=== PATIENT | male | born 1950 | race Caucasian/White ===

== ENCOUNTER 2019-05-25 11:16 | Outpatient (CLI) | payer MEDICARE, SELFPAY ==
[2019-05-25 12:15] LABS: Basophils # 0.1 10^3/uL (0.0-0.1); Basophils % 0.7 %; Eosinophils # 0.2 10^3/uL (0.0-0.8); Eosinophils % 3.2 %; Hematocrit 45.3 % (42.0-52.0); Hemoglobin 14.6 g/dL (11.7-16.6); Lymphocytes # 1.8 10^3/uL (0.8-4.8); Lymphocytes % 23.9 %; Mean Corpuscular HGB Conc 32.2 g/dL (30.0-36.0); Mean Corpuscular Hemoglobin 28.3 pg (28.0-34.0); Mean Corpuscular Volume 87.8 fL (80-94); Mean Platelet Volume 10.6 fL (7.4-10.4); Monocytes # 0.6 10^3/uL (0.2-0.9); Monocytes % 7.4 %; Neutrophils # 4.9 10^3/uL (1.8-7.7); Neutrophils % 64.5 %; Nucleated Red Blood Cells % 0 %; Platelet Count 153 10^3/cmm (130-400); Red Blood Count 5.16 10^6/uL (4.1-5.3); Red Cell Distribution Width 13.1 % (12.1-15.1); White Blood Count 7.5 10^3/uL (4.0-10.0)
[2019-05-25 12:39] LABS: Carcinoembryonic Antigen 3.5 ng/mL (0.0-4.7)
[2019-05-25 12:50] LABS: Alanine Aminotransferase 35 U/L (0-41); Albumin Level 4.6 g/dL (3.5-5.2); Alkaline Phosphatase 83 IU/L (40-130); Anion Gap 17.2 (5-19); Aspartate Amino Transferase 31 U/L (0-40); Blood Urea Nitrogen 19 mg/dL (8-23); Calcium 9.6 mg/Dl (8.8-10.2); Carbon Dioxide 20 mmol/L (22-29); Chloride 104 mmol/L (98-107); Globulin 2.3 g/dL (1.3-4.6); Glucose 249 mg/dL (74-106); Potassium 4.2 mmol/L (3.5-5.1); Sodium 137 mmol/L (136-145); Total Bilirubin 0.6 mg/dL (0.15-1.2); Total Protein 6.9 g/dL (6.6-8.7)
--- NOTE | 2019-05-29 16:13 | ONC FU_ITS ---
Dr. Sood Patient Follow-Up Note Patient: Percy Coronado Unit #: [id number]: [id number] Dicatated By: Alex Sood M.D.Date of Visit:May 25, 2019 Onc Med Follow-up/Prog Note Chief Complaint: Colon cancer/deep vein thrombosis. History of Present Illness: This is a 68 year-old man with stage IIIB colon cancer and deep vein thrombosis of the right leg. He had been admitted to the hospital in May 2010 with bowel obstruction at the level of the distal sigmoid colon. He underwent exploratory laparotomy with sigmoid colon resection on 06/05/2010. Pathology showed well to moderately differentiated infiltrating adenocarcinoma. The tumor measured 3.5 x 6.2 cm. It was a T3 lesion with invasion through the muscularis propria greater than 5 mm beyond the border. There was evidence of lymphovascular space invasion, but there was no involvement in 6 mesenteric lymph nodes. Due to the relatively small number of lymph nodes in the surgical specimen and the fact that he had somewhat of a locally advanced primary tumor, I had recommended adjuvant chemotherapy with Xeloda. However, he developed significant side effects during his first cycle. At that point he opted to stop treatment. He failed to return for followup, and he also failed to follow through with recommendations for surveillance colonoscopy. He was admitted to the hospital again in October 2014 with abdominal pain and vomiting. He had not been having bowel movements for several days. CT abdomen/pelvis showed severe distal colonic obstruction due to high-grade stricture in the distal descending colon. There were enlarged lymph nodes in the adjacent area. The obstruction did resolve with conservative management. He was then seen by Dr. Abbott as an outpatient. He underwent colonoscopy on 11/02/2014. He was found to have a partially obstructing malignant appearing mass in the proximal to mid sigmoid colon. The distal edge was noted at 30 cm, with the previous anastomosis identified at 15 cm. Biopsy was consistent with moderately differentiated invasive adenocarcinoma. On 11/20/2014 he underwent exploratory laparotomy with partial sigmoid colectomy. The tumor was located in the proximal sigmoid colon. Pathology showed grade 1 infiltrating adenocarcinoma which measured 4.2 x 3.0 cm. There was invasion through the muscularis propria into the perirectal adipose tissue and there was evidence of lymphovascular space invasion. There was metastatic tumor identified in 2 of 4 perirectal lymph nodes. I had seen him recently for a post hospital followup visit on 12/06/14. We had discussed the possibility of adjuvant chemotherapy. He had subsequently developed pain and swelling in the right leg, and a venous Doppler study showed pretty extensive deep vein thrombosis. He was given anticoagulation with rivaroxaban. He had subsequently agreed to proceed with adjuvant chemotherapy. He started his first cycle of treatment with modified FOLFOX on 01/04/2015. It was given without the 5-FU bolus. He tolerated the chemotherapy well until the seventh cycle, at which point his treatment was delayed because of a low platelet. With that cycle he did receive a 25% reduction in the 5-FU dosage. He then developed significant neuropathy following his 8th cycle of treatment, enough that I did opt to with hold the oxaliplatin beginning with the 9th cycle. He completed his 12th and final cycle of chemotherapy on 06/12/2015. He had subsequently stopped anticoagulation, as he had completed 6 months of treatment with rivaroxaban, and it appeared that his episode of thrombosis had been provoked. He then presented to the emergency room on 07/18/2015 with recurrent swelling of the right leg. A repeat venous Doppler showed evidence of acute occlusive deep vein thrombosis involving the right superficial femoral vein. He restarted anticoagulation with apixaban 10 mg twice a day, and he then transitioned to 5 mg twice a day. He has just remained on observation for the colon cancer. His other medical illnesses include hypertension, hyperlipidemia, and type II diabetes. He also has a history of depression. He has only a minimal smoking history, limited to smoking for a short time as a teenager. INTERIM HISTORY: Surveillance CT scans of the chest, abdomen, pelvis on 10/30/2016 showed nonspecific slight central mesenteric reticulation most likely representing viral mesenteritis. Also noted were tiny noncalcified pulmonary nodules in left upper lobe. There was no obvious metastatic disease noted. On 01/29/2017 he presented to the emergency room with vomiting and diarrhea. His CT abdomen/pelvis showed no acute findings and no evidence of metastatic disease. His surveillance CT scans of the chest, abdomen, and pelvis on 10/16/2017 showed slight increase in left upper lobe paraseptal interstitial thickening, probably on the basis of pneumonia or pneumonitis. There was evidence of bilateral lower lobe interstitial fibrosis and bronchiectasis, but there are no definite findings of disease progression in the chest and there was no evidence of metastatic involvement in the abdomen/pelvis. He continued on observation/expectant management. Surveillance CT scans on 04/17/2018 showed no evidence of metastatic disease in the chest, abdomen, or pelvis. He is seen for a follow-up visit. He has been feeling fine. He has good energy and activity tolerance. ECOG score 0. He has good appetite. He has no fever or night sweats. He does complain of sinus congestion and drainage. He says it is about to drive him nuts, but he has tried everything. He has associated cough. He does not complain of shortness of breath or chest pain. He has no GI or complaints. He has pain in his right knee, and he has numbness in his right foot. Medications: Cholecalciferol 1 (06381 Units) Tablet Oral q 1 week, Cozaar 1 (100 mg) Tablet Oral daily, Crestor 1 (40 mg) Tablet Oral daily, Eliquis 1 (5 mg) Tablet Oral b.i.d., Flonase Suspension Nasal, Glimepiride 1 (2 mg) Tablet Oral daily, Lisinopril 1 (40 mg) Tablet Oral daily, NovoLOG Subcutaneous Take as Directed, Pepcid 1 (20 mg) Tablet Oral b.i.d., Prochlorperazine Maleate 1 (10 mg) Tablet Oral q 6 hours, Singulair 1 (10 mg) Tablet Oral daily, Tresiba FlexTouch Subcutaneous daily, Victoza 1 Subcutaneous daily, Vistaril 1 (25 mg) Capsule Oral daily, Zoloft 1 (100 mg) Tablet Oral daily Allergies: novacaine Review of Systems: Constitutional - His energy is good and he has normal activity. Appetite is so-so, but his weight is stable. No fever, chills, hot flashes, or night sweats. ECOG score is 0, ENMT - He has sinus congestion/drainage. He says he has tried everything for it. No mouth sores. No sore throat or difficulty swallowing, Hematologic/Lymphatic - No abnormal bruising or bleeding, Respiratory - No shortness of breath. He has cough associated with the sinus drainage. No pleuritic pain or hemoptysis, Cardiovascular - No angina pain. No palpitations, Gastrointestinal - No nausea or vomiting. No heartburn or acid reflux. No diarrhea or constipation. No blood in the stool or black stools, Genitourinary (M) - No dysuria or hematuria. No urinary frequency. No urgency or incontinence, Musculoskeletal - He has pain in his right knee. He has no other joint or bone pain, Neurologic - No headache or dizziness. He has numbness/tingling in his right foot, Psychiatric - He has some depression. No insomnia. Vital Signs: Performed on May 25, 2019 13:59 Height - 70.00 in Weight - 221.4 lbs (LOW) BSA - 2.18 sq.m BMI - 31.77 (HIGH) Temperature - 97.8 F (LOW) Pulse - 99 /min Respiration - 20 /min BP - 119/79 mm(hg) O2 Sat - 96 % Pain - 0 Physical Examination: Constitutional - He looks pretty good generally, Eyes - Sclerae nonicteric. Conjunctivae clear, ENMT - There are no lesions noted in the oral cavity, Hematologic/Lymphatic - No cervical, clavicular, or axillary adenopathy, Respiratory - Lungs are clear with some decrease in air movement bilaterally, Cardiovascular - Heart rhythm is regular. There is no murmur, gallop or rub noted, Abdomen - Soft. Liver and spleen are not enlarged. There is no abdominal mass or ascites noted and there is no inguinal adenopathy, Extremities - No edema, Neurologic - No focal neurologic deficits noted. Lab/Imaging: Test performed on May 25, 2019 11:53 Glucose 249 mg/dL BUN 19 mg/dL Creatinine 1.3 mg/dL Cr Clearance (Est) 74.0300 mL/min Sodium 137 mmol/L Potassium 4.2 mmol/L Chloride 104 mmol/L CO2 20 mmol/L Calcium 9.6 mg/dL Protein, Total 6.9 g/dL Albumin 4.6 g/dL Bilirubin, Total 0.6 mg/dL Alkaline Phosphatase 83 IU/L AST (SGOT) 31 IU/L ALT (SGPT) 35 IU/L WBC 7.5 10^9/L RBC 5.16 10^12/L HGB 14.6 g/dL HCT 45.3 % MCV 87.8 fl MCH 28.3 pg MCHC 32.2 g/dL RDW 13.1 % Platelet Count 153 10^9/L MPV 10.6 fL Neutrophils (Gran) 4.9 10^9/L Lymphocytes 1.8 10^9/L Monocytes 0.6 10^9/L Eosinophils 0.2 10^9/L Basophils 0.1 10^9/L Manual Lymphocytes 23.9 % Manual Monocytes 7.4 % Manual Eosinophils 3.2 % Manual Basophils 0.7 % NRBCs 0.0 /100 WBC CEA 3.5 ng/mL Impression: 1. Patient with grade 1 invasive adenocarcinoma of the proximal sigmoid colon, stage IIIB (pT3, pN1b, M0). He underwent partial sigmoid colon resection on 11/20/14. 2. He had concerns about adjuvant chemotherapy due to the significant toxicity he had experienced previously with Xeloda. Ultimately he did agree, and in December 2014 he initiated a course of treatment with modified FOLFOX. It was administered without a 5-FU bolus. The 5-FU dosage was reduced by 25 % beginning with cycle 7 due to thrombocytopenia. He then developed significant neuropathy following the eighth cycle, and the oxaliplatin was omitted beginning with cycle 9. As of 06/12/2015 he completed 12 cycles of treatment. 3. His clinical course was complicated by deep vein thrombosis of the right leg, diagnosed in December 2014, prior to starting chemotherapy. He was given anticoagulation with rivaroxaban, which he stopped in June 2015 after completing a 6-month course of treatment. Within a month he was confirmed by Doppler to have recurrent deep vein thrombosis in the right leg, and he has since then remain on anticoagulation with apixaban. 4. He has a prior history of sigmoid colon resection in May 2010 for moderately differentiated adenocarcinoma, stage IIA. He received abbreviated adjuvant chemotherapy with Xeloda, limited to one cycle. It was stopped due to toxicities. His other medical illnesses include: 5. Hypertension. 6. Hyperlipidemia. 7. Type II diabetes. 8. He has a history of depression. He has remained on observation for the colon cancer following completion of the chemotherapy. During follow-up there was some decline in his renal function, but that subsequently stabilized. There has been some mild fluctuation in his CEA levels, but the significance remains uncertain. Overall, his clinical status remains stable with no evidence of recurrence of the colon cancer. He has declined any further surveillance colonoscopy. Plan: He remains on observation/expectant management for the colon cancer. He will be scheduled for surveillance CT scans. I will see him again in one year. Signed By: Alex Sood M.D. <<Signature on File>>
== END 2019-05-25 11:17 | disposition home or self-care (01) ==
LOC: ONCMED 11:16
PROVIDERS: Family Provider Nurse Practitioner; PCP Nurse Practitioner; Visit Provider Internal Medicine Medical Oncology
DX: Z08 Encounter for follow-up examination after completed treatment for malignant neoplasm (principal); Z85.038 Personal history of other malignant neoplasm of large intestine; I10 Essential (primary) hypertension; E78.5 Hyperlipidemia, unspecified; E11.9 Type 2 diabetes mellitus without complications; F32.9 Major depressive disorder, single episode, unspecified; Z79.01 Long term (current) use of anticoagulants; Z79.4 Long term (current) use of insulin; Z90.49 Acquired absence of other specified parts of digestive tract; Z92.21 Personal history of antineoplastic chemotherapy
CPT/HCPCS: 36591; 80053; 82378; 85025; G0463

== ENCOUNTER 2019-06-10 09:39 | Outpatient (CLI) | payer MEDICARE, SELFPAY ==
--- NOTE | 2019-06-10 09:47 | CT_ITS ---
WS: [id number] CT CHEST, ABDOMEN, AND PELVIS TECHNIQUE: Contrast-enhanced CT of the chest, abdomen, and pelvis with coronal and sagittal reformatt ed images. CLINICAL INFORMATION: COLON CANCER COMPARISON: CT April 17, 2018. Multiple prior CTs October 16, 2017, January 29, October 30, 2016 DLP: 2031.[address] scans at [facility] use at least one of these dose optimization techniques: automat ed exposure control; mA and/or kV adjustment per patient size (includes targeted exams where dose is matched to clinical indication); or iterative reconstruction. CT CHEST: Proximal main pulmonary arteries are normal. Normal caliber thoracic aorta. Vascular calcification in cluding coronary. No mediastinal or hilar lymphadenopathy. Small esophageal hiatal hernia. No axillary lymphadenopathy. Chronic emphysematous changes with interstitial thickening in both lungs . Stable interstitial thickening in the lung bases. No new or suspicious pulmonary parenchymal opacit ies to indicate metastatic disease. No new pulmonary infiltrates. Calcified subcarinal lymph nodes. CT ABDOMEN AND PELVIS: Mild diffuse fatty infiltration liver. Portal vein and splenic vein are patent. Normal gallbladder. N ormal spleen. Fatty atrophy of the pancreas. Esophageal hiatal hernia. Normal caliber abdominal aorta . Aortic calcification. Adrenal glands are normal. Bilateral renal cortical atrophy. Small left renal cyst. No periaortic lymphadenopathy. Prostate calcification. Slightly enlarged prostate measuring 3.9 x 5.1 cm. Recommend correlation PSA. Markedly urine distended bladder consistent with bladder outlet obstruction. Prior partial sigmoid r esection with end-to-end anastomosis. No evidence of recurrent sigmoid mass. No evidence of obstructi on. No pelvic lymphadenopathy. No inguinal lymphadenopathy. CT/CT chest abd pel w con* IMPRESSION: 1. No evidence of metastatic disease in the chest abdomen or pelvis. 2. No mediastinal or hilar lymphadenopathy. No adenopathy in the abdomen or pe lvis. 3. Small sliding-type esophageal hiatal hernia unchanged. 4. Urine distended bladder with slightly enlarged prostate. Recommend correlat ion PSA. Recommend correlation for bladder outlet obstruction. 5. Prior partial sigmoid resection with end to end anastomosis. No pelvic lymp hadenopathy.
[2019-06-10] MEDS: iohexol 300 mg/mL 50 mL Btl PO (10:00)
[2019-06-10] MEDS: iodixanol 320 mg/mL 100mL Btl IV (11:29)
== END 2019-06-10 09:40 | disposition home or self-care (01) ==
LOC: CT 09:39
PROVIDERS: Family Provider Nurse Practitioner; PCP Nurse Practitioner; Visit Provider Internal Medicine Medical Oncology
DX: C18.9 Malignant neoplasm of colon, unspecified (principal); K44.9 Diaphragmatic hernia without obstruction or gangrene; N40.0 Benign prostatic hyperplasia without lower urinary tract symptoms
CPT/HCPCS: 71260; 74177

== ENCOUNTER → 2019-06-24 11:55 | Outpatient (BNVA) | payer MEDICARE, SELFPAY | PROVIDERS: Family Provider Nurse Practitioner; PCP Nurse Practitioner; Visit Provider Nurse Practitioner | DX: E11.65 Type 2 diabetes mellitus with hyperglycemia (principal); H61.22 Impacted cerumen, left ear; K21.9 Gastro-esophageal reflux disease without esophagitis; I10 Essential (primary) hypertension; F41.9 Anxiety disorder, unspecified; E11.40 Type 2 diabetes mellitus with diabetic neuropathy, unspecified; Z79.4 Long term (current) use of insulin; Z86.718 Personal history of other venous thrombosis and embolism | CPT/HCPCS: 80053; 81003; 83036 ==

== ENCOUNTER 2019-06-30 12:03 | Outpatient (CLI) | payer MEDICARE, SELFPAY | END 2019-06-30 12:04 | disposition home or self-care (01) | LOC: ONCMED 12:05 | PROVIDERS: Family Provider Nurse Practitioner; PCP Nurse Practitioner; Visit Provider Internal Medicine Medical Oncology | DX: Z45.2 Encounter for adjustment and management of vascular access device (principal) | CPT/HCPCS: 96523 ==

== ENCOUNTER 2019-07-29 14:31 | Outpatient (CLI) | payer MEDICARE, SELFPAY | END 2019-07-29 14:32 | disposition home or self-care (01) | LOC: ONCMED 14:31 | PROVIDERS: Family Provider Nurse Practitioner; PCP Nurse Practitioner; Visit Provider Internal Medicine Medical Oncology | DX: Z45.2 Encounter for adjustment and management of vascular access device (principal) | CPT/HCPCS: 96523 ==

== ENCOUNTER 2019-09-03 10:06 | Outpatient (CLI) | payer MEDICARE, SELFPAY | END 2019-09-03 10:07 | disposition home or self-care (01) | LOC: ONCMED 10:07 | PROVIDERS: Family Provider Nurse Practitioner; PCP Nurse Practitioner; Visit Provider Internal Medicine Medical Oncology | DX: Z45.2 Encounter for adjustment and management of vascular access device (principal); C18.7 Malignant neoplasm of sigmoid colon; Z85.038 Personal history of other malignant neoplasm of large intestine | CPT/HCPCS: 96523 ==

== ENCOUNTER → 2019-11-24 09:39 | Outpatient (BNVA) | payer MEDICARE, SELFPAY | PROVIDERS: Family Provider Nurse Practitioner; PCP Nurse Practitioner Family; Visit Provider Nurse Practitioner Family | DX: E11.65 Type 2 diabetes mellitus with hyperglycemia (principal); Z86.718 Personal history of other venous thrombosis and embolism; K21.9 Gastro-esophageal reflux disease without esophagitis; F41.9 Anxiety disorder, unspecified; E11.40 Type 2 diabetes mellitus with diabetic neuropathy, unspecified; E55.9 Vitamin D deficiency, unspecified; Z79.4 Long term (current) use of insulin; H91.93 Unspecified hearing loss, bilateral; F32.9 Major depressive disorder, single episode, unspecified; E78.2 Mixed hyperlipidemia; N18.9 Chronic kidney disease, unspecified; I12.9 Hypertensive chronic kidney disease with stage 1 through stage 4 chronic kidney disease, or unspecified chronic kidney disease; Z68.28 Body mass index [BMI] 28.0-28.9, adult | CPT/HCPCS: 80053; 80061; 82306; 83036; 85025 ==

== ENCOUNTER → 2020-02-22 08:15 | Outpatient (BNVA) | payer MEDICARE, SELFPAY | PROVIDERS: Family Provider Nurse Practitioner; PCP Nurse Practitioner Family; Visit Provider Nurse Practitioner Family | DX: I10 Essential (primary) hypertension (principal); E11.65 Type 2 diabetes mellitus with hyperglycemia; Z79.4 Long term (current) use of insulin | CPT/HCPCS: 80053; 83036; 85025 ==

== ENCOUNTER → 2020-05-22 11:11 | Outpatient (BNVA) | payer MEDICARE, SELFPAY | PROVIDERS: Family Provider Nurse Practitioner; PCP Nurse Practitioner Family; Visit Provider Nurse Practitioner Family | DX: E11.65 Type 2 diabetes mellitus with hyperglycemia (principal); Z79.4 Long term (current) use of insulin; E55.9 Vitamin D deficiency, unspecified; N18.31 Chronic kidney disease, stage 3a; H91.93 Unspecified hearing loss, bilateral; F41.9 Anxiety disorder, unspecified; F32.9 Major depressive disorder, single episode, unspecified; E78.2 Mixed hyperlipidemia; I10 Essential (primary) hypertension | CPT/HCPCS: 80053; 80061; 82043; 82306; 82378; 83036; 85025 ==

== ENCOUNTER 2020-05-24 08:00 | Outpatient (CLI) | payer MEDICARE, SELFPAY ==
--- NOTE | 2020-06-06 07:37 | ONC FU_ITS ---
Dr. Sood Patient Follow-Up Note Patient: Percy Coronado Unit #: [id number]: [id number] Dicatated By: Alex Sood M.D.Date of Visit:May 24, 2020 Onc Med Follow-up/Prog Note Chief Complaint: Colon cancer/deep vein thrombosis. History of Present Illness: This is a 70 year-old man with stage IIIB colon cancer and deep vein thrombosis of the right leg. He had been admitted to the hospital in May 2010 with bowel obstruction at the level of the distal sigmoid colon. He underwent exploratory laparotomy with sigmoid colon resection on 06/05/2010. Pathology showed well to moderately differentiated infiltrating adenocarcinoma. The tumor measured 3.5 x 6.2 cm. It was a T3 lesion with invasion through the muscularis propria greater than 5 mm beyond the border. There was evidence of lymphovascular space invasion, but there was no involvement in 6 mesenteric lymph nodes. Due to the relatively small number of lymph nodes in the surgical specimen and the fact that he had somewhat of a locally advanced primary tumor, I had recommended adjuvant chemotherapy with Xeloda. However, he developed significant side effects during his first cycle. At that point he opted to stop treatment. He failed to return for followup, and he also failed to follow through with recommendations for surveillance colonoscopy. He was admitted to the hospital again in October 2014 with abdominal pain and vomiting. He had not been having bowel movements for several days. CT abdomen/pelvis showed severe distal colonic obstruction due to high-grade stricture in the distal descending colon. There were enlarged lymph nodes in the adjacent area. The obstruction did resolve with conservative management. He was then seen by Dr. Abbott as an outpatient. He underwent colonoscopy on 11/02/2014. He was found to have a partially obstructing malignant appearing mass in the proximal to mid sigmoid colon. The distal edge was noted at 30 cm, with the previous anastomosis identified at 15 cm. Biopsy was consistent with moderately differentiated invasive adenocarcinoma. On 11/20/2014 he underwent exploratory laparotomy with partial sigmoid colectomy. The tumor was located in the proximal sigmoid colon. Pathology showed grade 1 infiltrating adenocarcinoma which measured 4.2 x 3.0 cm. There was invasion through the muscularis propria into the perirectal adipose tissue and there was evidence of lymphovascular space invasion. There was metastatic tumor identified in 2 of 4 perirectal lymph nodes. I had seen him recently for a post hospital followup visit on 12/06/14. We had discussed the possibility of adjuvant chemotherapy. He had subsequently developed pain and swelling in the right leg, and a venous Doppler study showed pretty extensive deep vein thrombosis. He was given anticoagulation with rivaroxaban. He had subsequently agreed to proceed with adjuvant chemotherapy. He started his first cycle of treatment with modified FOLFOX on 01/04/2015. It was given without the 5-FU bolus. He tolerated the chemotherapy well until the seventh cycle, at which point his treatment was delayed because of a low platelet. With that cycle he did receive a 25% reduction in the 5-FU dosage. He then developed significant neuropathy following his 8th cycle of treatment, enough that I did opt to with hold the oxaliplatin beginning with the 9th cycle. He completed his 12th and final cycle of chemotherapy on 06/12/2015. He had subsequently stopped anticoagulation, as he had completed 6 months of treatment with rivaroxaban, and it appeared that his episode of thrombosis had been provoked. He then presented to the emergency room on 07/18/2015 with recurrent swelling of the right leg. A repeat venous Doppler showed evidence of acute occlusive deep vein thrombosis involving the right superficial femoral vein. He restarted anticoagulation with apixaban 10 mg twice a day, and he then transitioned to 5 mg twice a day. He has just remained on observation for the colon cancer. His other medical illnesses include hypertension, hyperlipidemia, and type II diabetes. He also has a history of depression. He has only a minimal smoking history, limited to smoking for a short time as a teenager. INTERIM HISTORY: Surveillance CT scans of the chest, abdomen, pelvis on 10/30/2016 showed nonspecific slight central mesenteric reticulation most likely representing viral mesenteritis. Also noted were tiny noncalcified pulmonary nodules in left upper lobe. There was no obvious metastatic disease noted. On 01/29/2017 he presented to the emergency room with vomiting and diarrhea. His CT abdomen/pelvis showed no acute findings and no evidence of metastatic disease. His surveillance CT scans of the chest, abdomen, and pelvis on 10/16/2017 showed slight increase in left upper lobe paraseptal interstitial thickening, probably on the basis of pneumonia or pneumonitis. There was evidence of bilateral lower lobe interstitial fibrosis and bronchiectasis, but there are no definite findings of disease progression in the chest and there was no evidence of metastatic involvement in the abdomen/pelvis. Surveillance CT scans on 04/17/2018 and on 06/10/2019 showed no evidence of metastatic disease in the chest, abdomen, or pelvis. He continued on observation/expectant management. He is seen for a follow-up visit. He has been feeling fine. He says that some days his energy is slow. He is able to do light work. ECOG score is 1. He has good appetite. He has no fever or night sweats. He has no shortness of breath, cough, or chest pain. He still sometimes has nausea. He has no other GI or complaints. He has pain in his right knee and he also has numbness in his right foot. He has no other joint or bone pain and he has no other focal neurologic symptoms. Medications: Cholecalciferol 1 (39195 Units) Tablet Oral q 1 week, Cozaar 1 (100 mg) Tablet Oral daily, Crestor 1 (40 mg) Tablet Oral daily, Eliquis 1 (5 mg) Tablet Oral b.i.d., Flonase Suspension Nasal, Glimepiride 1 (2 mg) Tablet Oral daily, Pepcid 1 (20 mg) Tablet Oral b.i.d., Prochlorperazine Maleate 1 (10 mg) Tablet Oral q 6 hours, Singulair 1 (10 mg) Tablet Oral daily, Tresiba FlexTouch Subcutaneous daily, Victoza 1 Subcutaneous daily, Vistaril 1 (25 mg) Capsule Oral daily, Zoloft 1 (100 mg) Tablet Oral daily Allergies: novacaine Vital Signs: Performed on May 24, 2020 12:11 Height - 70.00 in Weight - 216.4 lbs (LOW) BSA - 2.16 sq.m BMI - 31.05 (HIGH) Temperature - 97.7 F (LOW) Pulse - 98 /min Respiration - 18 /min BP - 132/76 mm(hg) O2 Sat - 96 % Pain - 0 Physical Examination: Constitutional - He looks pretty good generally, Eyes - Sclerae nonicteric. Conjunctivae clear, ENMT - No lesions noted in the oral cavity, Hematologic/Lymphatic - No cervical, clavicular, or axillary adenopathy, Respiratory - Lungs are clear with some decrease in air movement bilaterally, Cardiovascular - Heart rhythm is regular. There is no murmur, gallop or rub noted, Abdomen - Soft. Liver and spleen are not enlarged. There is no abdominal mass or ascites noted and there is no inguinal adenopathy, Extremities - No edema, Neurologic - No focal neurologic deficits noted. Lab/Imaging: CBC shows hemoglobin 16.6 g, white blood cell count 8200, and platelet count 177,000. Comprehensive metabolic profile is unremarkable. CEA is up slightly at 4.4 ng/mL. Historic Problem List: 1. Grade 1 invasive adenocarcinoma of the proximal sigmoid colon, stage IIIB (pT3, pN1b, M0). He underwent partial sigmoid colon resection on 11/20/14. 2. Between December 2014 and May 2015 he completed 12 cycles of adjuvant chemotherapy with modified FOLFOX. He did require dose reductions in both the 5-FU and oxaliplatin, and the oxaliplatin was omitted beginning with cycle 9. 3. His clinical course was complicated by deep vein thrombosis of the right leg, diagnosed in December 2014, prior to starting chemotherapy. He was given anticoagulation with rivaroxaban, which he stopped in June 2015 after completing a 6-month course of treatment. Within a month he was confirmed by Doppler to have recurrent deep vein thrombosis in the right leg, and he then restarted apixaban. 4. He has a prior history of sigmoid colon resection in May 2010 for moderately differentiated adenocarcinoma, stage IIA. He received abbreviated adjuvant chemotherapy with Xeloda, limited to one cycle. It was stopped due to toxicities. 5. Hypertension. 6. Hyperlipidemia. 7. Type II diabetes. 8. He has a history of depression. Problems Addressed with this Encounter and Plan: 1. Grade 1 invasive adenocarcinoma of the proximal sigmoid colon, stage IIIB (pT3, pN1b, M0). He underwent partial sigmoid colon resection on 11/20/14. Between December 2014 and May 2015 he completed 12 cycles of adjuvant chemotherapy with modified FOLFOX. He did require dose reductions in both the 5-FU and oxaliplatin, and the oxaliplatin was omitted beginning with cycle 9. He was then followed on observation/expectant management. During followup has been doing well clinically, thus far with no evidence of recurrence of the colon cancer. He remains on observation/expectant management. He will be scheduled for surveillance CT scans. I will see him again in one year. 2. He developed deep vein thrombosis of the right leg in December 2014, prior to starting chemotherapy. He was given anticoagulation with rivaroxaban, which he stopped in June 2015 after completing a 6-month course of treatment. Within a month he was confirmed by Doppler to have recurrent deep vein thrombosis in the right leg, and he has since then remained on anticoagulation with apixaban. Thus far he has tolerated it well and he has had no further thromboembolism. Signed By: Alex Sood M.D. <<Signature on File>>
== END 2020-05-24 08:01 | disposition home or self-care (01) ==
LOC: ONCMED 05-29 07:30
PROVIDERS: Family Provider Nurse Practitioner; PCP Nurse Practitioner Family; Visit Provider Internal Medicine Medical Oncology
DX: Z08 Encounter for follow-up examination after completed treatment for malignant neoplasm (principal); Z85.038 Personal history of other malignant neoplasm of large intestine; Z86.718 Personal history of other venous thrombosis and embolism; Z79.01 Long term (current) use of anticoagulants; Z92.21 Personal history of antineoplastic chemotherapy
CPT/HCPCS: 99214

== ENCOUNTER → 2020-06-12 11:38 | Outpatient (BNVA) | payer MEDICARE, SELFPAY | PROVIDERS: Family Provider Nurse Practitioner; PCP Nurse Practitioner; Visit Provider Nurse Practitioner | DX: E11.65 Type 2 diabetes mellitus with hyperglycemia (principal); E11.40 Type 2 diabetes mellitus with diabetic neuropathy, unspecified; K21.9 Gastro-esophageal reflux disease without esophagitis; J30.89 Other allergic rhinitis; I10 Essential (primary) hypertension; F32.9 Major depressive disorder, single episode, unspecified; F41.9 Anxiety disorder, unspecified; E55.9 Vitamin D deficiency, unspecified; Z79.4 Long term (current) use of insulin; Z86.718 Personal history of other venous thrombosis and embolism; Z79.899 Other long term (current) drug therapy | CPT/HCPCS: 80053; 80061; 81003; 82043; 83036; 84443; 87086 ==

== ENCOUNTER 2020-06-15 11:28 | Outpatient (CLI) | payer MEDICARE, SELFPAY ==
--- NOTE | 2020-06-15 11:44 | CT_ITS ---
WS: [id number] CT CHEST, ABDOMEN, AND PELVIS TECHNIQUE: Contrast-enhanced CT of the chest, abdomen, and pelvis with coronal and sagittal reformatt ed images. CLINICAL INFORMATION: COLON CANCER, MALIGNANT NEOPLASM OF SIGMOID COLON, COMPARISON: CT June 10 2019, April 17, 2018, October 2017, January 2017 DLP: 2750.[address] scans at [facility] use at least one of these dose optimization techniques: automat ed exposure control; mA and/or kV adjustment per patient size (includes targeted exams where dose is matched to clinical indication); or iterative reconstruction. CT CHEST: Chronic interstitial thickening throughout both lungs. No focal pneumonia. No acute pulmonary infiltr ates. Large esophageal hiatal hernia with air-fluid level appears progressed. Noncalcified 3 mm nodul e left upper lobe unchanged from 2018. Proximal main pulmonary arteries are normal. Normal caliber thoracic aorta. Vascular calcification in cluding coronary. Calcified subcarinal lymph nodes. CT ABDOMEN AND PELVIS: Diffuse fatty infiltration the liver. Portal vein and splenic vein are patent. Normal gallbladder. No rmal spleen. Fatty atrophy of the pancreas. Progressed large esophageal hiatal hernia with air-fluid level Normal caliber abdominal aorta. Aortic calcification. Adrenal glands are normal. Bilateral renal veronique ical atrophy. Small left renal cyst. No abdominal or pelvic lymphadenopathy. Enlarged prostate unchan ged. Markedly distended urinary bladder consistent with bladder outlet obstruction similar to previou s. Prior partial sigmoid resection with end-to-end anastomosis. No evidence of recurrent sigmoid mass. N o evidence of obstruction. CT/CT chest abd pel w con* IMPRESSION: 1. No evidence of metastatic disease in the chest abdomen or pelvis. 2. No mediastinal or hilar lymphadenopathy. 3. No adenopathy in the abdomen or pelvis. 4. Progressed enlarged sliding-type esophageal hiatal hernia with air-fluid le rukhsana. 5. Stable enlarged prostate with markedly distended urinary bladder likely due to bladder outlet obstruction. 6. Prior partial sigmoid resection with end to end anastomosis. 7. Noncalcified 3 mm nodule left upper lobe unchanged since 2018.
[2020-06-15] MEDS: iohexol 300 mg/mL 100 mL Btl IV (13:35)
[2020-06-15] MEDS: iohexol 300 mg/mL 50 mL Btl PO (13:35)
== END 2020-06-15 11:29 | disposition home or self-care (01) ==
LOC: RADWPI 11:41
PROVIDERS: PCP Nurse Practitioner; Visit Provider Internal Medicine Medical Oncology
DX: Z85.038 Personal history of other malignant neoplasm of large intestine (principal); R91.1 Solitary pulmonary nodule; N40.0 Benign prostatic hyperplasia without lower urinary tract symptoms; K44.9 Diaphragmatic hernia without obstruction or gangrene
CPT/HCPCS: 71260; 74177; Q9967

== ENCOUNTER → 2020-07-13 08:31 | Outpatient (BNVA) | payer MEDICARE, SELFPAY | PROVIDERS: PCP Nurse Practitioner; Visit Provider Nurse Practitioner | DX: M19.041 Primary osteoarthritis, right hand (principal); M19.042 Primary osteoarthritis, left hand; M17.0 Bilateral primary osteoarthritis of knee; E11.65 Type 2 diabetes mellitus with hyperglycemia; Z79.4 Long term (current) use of insulin; E11.40 Type 2 diabetes mellitus with diabetic neuropathy, unspecified | CPT/HCPCS: 73130; 73562 ==

== ENCOUNTER → 2020-09-04 09:36 | Outpatient (BNVA) | payer MEDICARE, SELFPAY | PROVIDERS: PCP Nurse Practitioner; Visit Provider Urology | DX: R33.9 Retention of urine, unspecified (principal); N18.31 Chronic kidney disease, stage 3a; N39.490 Overflow incontinence | CPT/HCPCS: 81003 ==

== ENCOUNTER → 2020-09-11 11:42 | Outpatient (BNVA) | payer MEDICARE, SELFPAY | PROVIDERS: PCP Nurse Practitioner; Visit Provider Nurse Practitioner | DX: F41.9 Anxiety disorder, unspecified (principal); F32.9 Major depressive disorder, single episode, unspecified; E11.65 Type 2 diabetes mellitus with hyperglycemia; E55.9 Vitamin D deficiency, unspecified; K21.9 Gastro-esophageal reflux disease without esophagitis; E11.40 Type 2 diabetes mellitus with diabetic neuropathy, unspecified; J30.89 Other allergic rhinitis; Z79.4 Long term (current) use of insulin; Z86.718 Personal history of other venous thrombosis and embolism | CPT/HCPCS: 80053; 82043; 83036 ==

== ENCOUNTER → 2020-10-18 15:36 | Outpatient (BNVA) | payer MEDICARE, SELFPAY | PROVIDERS: PCP Nurse Practitioner; Visit Provider Urology | DX: N18.31 Chronic kidney disease, stage 3a (principal); R33.9 Retention of urine, unspecified; N39.490 Overflow incontinence; N40.1 Benign prostatic hyperplasia with lower urinary tract symptoms | CPT/HCPCS: 81003 ==

== ENCOUNTER 2020-11-06 16:57 | Emergency (ER) | payer MEDICARE, SELFPAY ==
[2020-11-06 17:09] VITALS: BP 136/80; PULSE 87; RESP 18; TEMP 36.9; O2SAT 95; BMI 27.8
--- NOTE | 2020-11-06 18:54 | XRR_ITS ---
PROCEDURE INFORMATION: Exam: XR Chest Exam date and time: 11/06/2020 6:54 PM Age: 70 years old Clinical indication: Other: Weak; Prior surgery; Surgery date: 6+ months; Surgery type: Colon TECHNIQUE: Imaging protocol: XR of the chest. Views: 1 view. COMPARISON: CT chest abd pel w con* 06/15/2020 1:31 PM FINDINGS: Lungs: Unchanged hyperinflation/COPD with basilar fibrosis. No consolidation. Pleural spaces: Unremarkable. No pleural effusion. No pneumothorax. Heart/Mediastinum: Unchanged cardiomegaly. There is a moderate size hiatal hernia. Bones/joints: No acute abnormality. XR/XR chest 1V portable [id number] IMPRESSION: No acute findings. Unchanged exam.
--- NOTE | 2020-11-06 18:55 | ECG_ITS ---
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 Measurements Intervals [place] Rate: 92 P: 26 MO: 199 QRS: -63 QRSD: 132 T: 57 QT: 386 QTc: 480 Interpretive Statements Multifocal atrial rhythm RIGHT BUNDLE BRANCH BLOCK [120+ ms QRS DURATION, UPRIGHT V1, 40+ ms S IN I/aVL/V4/V5/V6] LEFT ANTERIOR FASCICULAR BLOCK [QRS AXIS <= -45, QR IN I, RS IN II] VOLTAGE CRITERIA FOR LVH [MEETS CRITERIA IN ONE OF: R(aVL), S(V1), R(V5), R(V5/V6)+S(V1)] ANTERIOR MYOCARDIAL INFARCTION [40+ ms Q WAVE AND/OR ST/T ABNORMALITY IN V3/V4], PROBABLY OLD Compared to ECG 01/29/2017 19:58:51 Right bundle-branch block now present Left ventricular hypertrophy now present Myocardial infarct finding still present Electronically Signed On 11-06-2020 21:21:19 CDT by Enrike Carrillo M.D. [id number]
--- NOTE | 2020-11-06 19:07 | ED_ITS ---
HPI - Male Genitourinary General: Chief complaint: Urogenital-Male Stated complaint: POSS UTI Time Seen by Provider: 11/06/20 18:51 Source: patient Mode of arrival: ambulatory History of Present Illness: HPI Narrative: 70-year-old male states that he believes he has a urinary tract infection. He states he has had discolored urine over the last 2 days and some generalized weakness. He states he had urin jeffy retention had to wear a Obrien for 2 weeks and had it removed over the weekend but is been doing self cath since then. He denies any fevers. Denies any flank pain. Denies any vomiting. Denies any worsening improving factors. Associated symptoms: Reports dysuria; Deny nausea or vomiting Review of Systems Const: Denies: fever(s), chills, body aches or change in appetite Eyes: Denies: blurry vision or eye discomfort ENMT: Denies: throat pain or dental pain Card: Denies: chest pain Resp: Denies: dyspnea GI: Denies: abdominal pain, nausea, vomiting or diarrhea : Reports: dysuria Musc: Denies: neck pain or back pain Skin/Breast: Denies: rash Neuro: Denies: headache(s) Psych: Denies: depression Ruben/Lymph: Denies: easy bruising All/Imm: Denies: urticaria PFSH ED PFSH: Medical History Anxiety and depression BPH loc w urin obs/LUTS Chronic kidney disease (CKD) stage 3 Chronic painful diabetic neuropathy Controlled diabetes mellitus with hyperglycemia, with long-term current use of insulin Environmental and seasonal allergies Gastric reflux History of deep venous thrombosis (DVT) of distal vein of left lower extremity HTN (hypertension) Incomplete bladder emptying Mixed dyslipidemia Osteoarthritis of knee, unspecified Right Overflow incontinence Urinary retention Vitamin D deficiency, unspecified Surgical History History of partial surgical removal of colon (~11/2014) For colon cancer Hx of colonoscopy 2014 Family History Mother Cancer Lung Father Nicotine addiction Other Hypertension Social History Smoking and tobacco status: never smoked Second hand smoke exposure: No Smoking risk assessment/counseling performed?: No Alcohol intake: former Desire information about alcohol rehabilitation?: No Counseling given: No Desire information about substance/drug rehabilitation?: No Counseling given: No Adopted: No Caregiver/support person: No Lives independently: Yes Household members: none Housing: House Marital status: / service: No Current occupational status: retired History of recent travel: No Current gender identity: Male Physical Exam Const: COMMON NORMALS: no acute distress, patient oriented x3 and healthy appearing HENMT: COMMON NORMALS: normocephalic and atraumatic HEAD & SCALP: normocephalic and atraumatic Eye: COMMON NORMALS: Equal, round and reactive pupils present and EOMs intact bilaterally PUPIL: Yes Equal, round and reactive pupils present Neck/C-Spine: COMMON NORMALS: full ROM and supple Chest: COMMONS NORMALS: normal inspection of the chest and normal palpation of entire chest wall Resp: COMMON NORMALS: normal respiratory effort, No retractions, No use of accessory muscles and clear to auscultation bilaterally AUSCULTATION: clear to auscultation bilaterally Cardio: COMMON NORMALS: regular rate, regular rhythm and No murmurs present (Cardio) RATE: regular rate RHYTHM: regular rhythm GI: COMMON NORMALS: Normal to inspection, nondistended, normoactive bowel sounds present, Soft to palpation, non-tender and no masses PALPATION: Yes Soft to palpation Extremity: COMMON NORMALS: normal to inspection and full ROM Neuro: COMMON NORMALS: patient oriented x3, moves all extremities and no focal motor deficits Psych: COMMON NORMALS: mental status grossly normal, Normal thought process present and cooperative THOUGHT PROCESS: Normal thought process present Skin: COMMON NORMALS: no rashes or lesions noted and no wounds GENERAL SKIN EXAM: no rashes or lesions noted Course Vital Signs: Vital signs: Vital Signs Temperature 98.5 F 11/06/20 17:09 Pulse Rate 81 11/06/20 21:51 Respiratory Rate 14 11/06/20 21:51 Blood Pressure 120/66 11/06/20 21:51 Pulse Oximetry 98 11/06/20 21:51 MDM - Male MDM Narrative: Medical decision making narrative: Patient presents here with acute cystitis. He also has a hyperglycemia but is improved with insulin. Patient's vitals here been normal he has no signs of sepsis. He is stable for discharge will place him on Keflex. He is to follow-up his PCP and return if worsening. He understands agrees to plan. Lab Data: Labs: Lab Results 11/06/20 11/06/20 11/06/20 Range/Units 18:49 18:59 18:59 WBC 14.1 H (4.0-10.0) 10^3/ uL RBC 5.19 (4.1-5.3) 10^6/u L Hgb 14.8 (11.7-16.6) g/dL Hct 44.8 (42.0-52.0) % MCV 86.3 (80-94) fL MCH 28.5 (28.0-34.0) pg MCHC 33.0 (30.0-36.0) g/dL RDW 12.7 (12.1-15.1) % Plt Count 323 (130-400) 10^3/c mm MPV 10.1 (7.4-10.4) fL Neut % (Auto) 80.6 % Lymph % (Auto) 11.8 % Hart % (Auto) 6.2 % Eos % (Auto) 0.5 % Baso % (Auto) 0.3 % Neut # (Auto) 11.35 H (1.8-7.7) 10^3/u L Lymph # (Auto) 1.7 (0.8-4.8) 10^3/u L Hart # (Auto) 0.9 (0.2-0.9) 10^3/u L Eos # (Auto) 0.1 (0.0-0.8) 10^3/u L Baso # (Auto) 0.0 (0.0-0.1) 10^3/u L Nucleated RBC % (a uto) 0 % Nucleated RBCs # 0.0 /100WBC Sodium 125 L (136-145) mmol/L Potassium 4.5 (3.5-5.1) mmol/L Chloride 88 L (98-107) mmol/L Carbon Dioxide 22 (22-29) mmol/L Anion Gap 19.5 H (5-19) BUN 26 H (8-23) mg/dL Creatinine 1.4 H (0.7-1.2) mg/dL GFR Calculation Not Reportable Glucose 397 H (65-115) mg/dL POC Glucose (70-110) mg/dL Calculated Osmolal ity 281 L (285-295) mOsm/k g Calcium 9.2 (8.5-10.5) mg/dL Total Bilirubin 1.0 (0.15-1.2) mg/dL AST 71 H (0-40) U/L ALT 89 H (0-41) U/L Alkaline Phosphata se 117 (40-130) IU/L Total Protein 7.9 (6.6-8.7) g/dL Albumin 4.0 (3.5-5.2) g/dL Globulin 3.9 (1.3-4.6) g/dL Urine Color Straw (Yellow) Urine Appearance Cloudy (CLEAR) Urine pH 5 (5-7) Ur Specific Gravit y 1.020 (1.005-1.030) Urine Protein Neg (Negative) Urine Glucose (UA) 4+ H (Normal) Urine Ketones Negative (Negative) Urine Blood 2+ H (Negative) Urine Nitrate Negative (Negative) Urine Bilirubin Neg (Negative) Urine Urobilinogen Norm (Negative) mg/dL Ur Leukocyte Lisset ase 2+ H (Negative) Urine RBC 15-25 H (0-2) /hpf Urine WBC Too numerous to c nt H (0-5) /hpf Ur Squamous Epith Cells None (0-5) /hpf Amorphous Sediment Not Reportable Urine Bacteria 2+ H (NONE) /hpf 11/06/20 11/06/20 11/07/20 Range/Units 21:47 22:04 00:17 WBC (4.0-10.0) 10^3/ uL RBC (4.1-5.3) 10^6/u L Hgb (11.7-16.6) g/dL Hct (42.0-52.0) % MCV (80-94) fL MCH (28.0-34.0) pg MCHC (30.0-36.0) g/dL RDW (12.1-15.1) % Plt Count (130-400) 10^3/c mm MPV (7.4-10.4) fL Neut % (Auto) % Lymph % (Auto) % Hart % (Auto) % Eos % (Auto) % Baso % (Auto) % Neut # (Auto) (1.8-7.7) 10^3/u L Lymph # (Auto) (0.8-4.8) 10^3/u L Hart # (Auto) (0.2-0.9) 10^3/u L Eos # (Auto) (0.0-0.8) 10^3/u L Baso # (Auto) (0.0-0.1) 10^3/u L Nucleated RBC % (a uto) % Nucleated RBCs # /100WBC Sodium Cancelled 131 L (136-145) mmol/L Potassium Cancelled 4.4 (3.5-5.1) mmol/L Chloride Cancelled 97 L (98-107) mmol/L Carbon Dioxide Cancelled 21 L (22-29) mmol/L Anion Gap Cancelled 17.4 (5-19) BUN Cancelled 24 H (8-23) mg/dL Creatinine Cancelled 1.2 (0.7-1.2) mg/dL GFR Calculation Cancelled Not Reportable Glucose Cancelled 446 H (65-115) mg/dL POC Glucose 380 H (70-110) mg/dL Calculated Osmolal ity Cancelled 295 (285-295) mOsm/k g Calcium Cancelled 8.0 L (8.5-10.5) mg/dL Total Bilirubin (0.15-1.2) mg/dL AST (0-40) U/L ALT (0-41) U/L Alkaline Phosphata se (40-130) IU/L Total Protein (6.6-8.7) g/dL Albumin (3.5-5.2) g/dL Globulin (1.3-4.6) g/dL Urine Color (Yellow) Urine Appearance (CLEAR) Urine pH (5-7) Ur Specific Gravit y (1.005-1.030) Urine Protein (Negative) Urine Glucose (UA) (Normal) Urine Ketones (Negative) Urine Blood (Negative) Urine Nitrate (Negative) Urine Bilirubin (Negative) Urine Urobilinogen (Negative) mg/dL Ur Leukocyte Lisset ase (Negative) Urine RBC (0-2) /hpf Urine WBC (0-5) /hpf Ur Squamous Epith Cells (0-5) /hpf Amorphous Sediment Urine Bacteria (NONE) /hpf EKG Data: EKG 1: Attestation: I personally reviewed and interpreted this EKG as follows: EKG Data: 11/06/20 EKG interpretation time: 19:09 Interpretation: nsr hr [address] or t wave abnormalities qrs 132 qtc 436 Discharge Plan Discharge Patient Disposition: Home Clinical Impression: Acute hyperglycemia Urinary tract infection Qualifiers: Urinary tract infection type: acute cystitis Hematuria presence: without hematuria Qualified Code(s): N30.00 - Acute cystitis without hematuria Condition: Stable Prescriptions: New cephalexin 500 mg capsule 500 mg PO TID 7 Days Qty: 21 RF: 0 No Action (DME) Accu-Chek Vonda Plus test strp Strip See Rx Instructions .ROUTE .MEDSUPPLY Qty: 10 RF: 0 nystatin 100,000 unit/gram ointment 1 applic topical BID Qty: 30 RF: 0 Eliquis 5 mg tablet 5 mg PO Q12H Qty: 60 RF: 2 cholecalciferol (vitamin D3) 125 mcg (5,000 unit) capsule 125 mcg PO DAILY Qty: 30 RF: 2 famotidine 20 mg tablet 20 mg PO BID Qty: 60 RF: 2 gabapentin 300 mg capsule 600 mg PO .at bedtime Qty: 60 RF: 2 hydroxyzine pamoate 25 mg capsule 25 mg PO .at bedtime Qty: 30 RF: 2 Tresiba FlexTouch U-100 100 unit/mL (3 mL) insulin pen 75 unit SUBCUT DAILY Qty: 24 RF: 3 Victoza 3-Cecil 0.6 mg/0.1 mL (18 mg/3 mL) pen injector 1.8 mg SUBCUT DAILY Qty: 9 RF: 2 losartan 100 mg tablet 100 mg PO DAILY Qty: 30 RF: 2 rosuvastatin 40 mg tablet 40 mg PO .at bedtime Qty: 30 RF: 2 sertraline 100 mg tablet 100 mg PO DAILY Qty: 30 RF: 2 finasteride [Proscar] 5 mg tablet 5 mg PO DAILY Qty: 30 RF: 0 tamsulosin 0.4 mg capsule 0.4 mg PO .at bedtime Qty: 30 RF: 12 Discharge Orders: Discharge ED (Routine); Ordered 11/06/20 Ordered By: Radu Salinas Referrals: Linwood Donovan, [employer]PAR[employer] [Primary Care Provider] - 1-3 days Discharge Diet: Advance as tolerated Discharge Activity: Resume usual activity Patient Instructions: Urinary Tract Infection in Men (ED) Coding Level of Care Code ED Machine Heel Seat Laster for Beck Fwd Exam Comprehensive
[2020-11-06 19:09] LABS: Basophils % 0.3 %; Eosinophils # 0.1 10^3/uL (0.0-0.8); Eosinophils % 0.5 %; Hematocrit 44.8 % (42.0-52.0); Hemoglobin 14.8 g/dL (11.7-16.6); Lymphocytes # 1.7 10^3/uL (0.8-4.8); Lymphocytes % 11.8 %; Mean Corpuscular Hemoglobin 28.5 pg (28.0-34.0); Mean Corpuscular Volume 86.3 fL (80-94); Mean Platelet Volume 10.1 fL (7.4-10.4); Monocytes # 0.9 10^3/uL (0.2-0.9); Monocytes % 6.2 %; Neutrophils # 11.35 10^3/uL (1.8-7.7); Neutrophils % 80.6 %; Nucleated Red Blood Cells % 0 %; Platelet Count 323 10^3/cmm (130-400); Red Blood Count 5.19 10^6/uL (4.1-5.3); Red Cell Distribution Width 12.7 % (12.1-15.1); White Blood Count 14.1 10^3/uL (4.0-10.0)
[2020-11-06 19:22] LABS: Bilirubin Urine Neg (Negative); Blood Urine 2+ (Negative); Glucose Urine UA 4+ (Normal); Ketones Urine Negative (Negative); Leukocyte Esterase Urine 2+ (Negative); Nitrate Urine Negative (Negative); Protein Urine Neg (Negative); RBC Urine 15-25 /hpf (0-2); Urine Appearance Cloudy (CLEAR); Urine Color Straw (Yellow); Urobilinogen Urine Norm (Negative); WBC Urine TOO NUMEROUS TO CNT /hpf (0-5); pH Urine 5 (5-7)
[2020-11-06 19:23] LABS: Add Urine Culture? Yes; Bacteria Urine 2+ /hpf
[2020-11-06 19:30] LABS: Alanine Aminotransferase 89 U/L (0-41); Alkaline Phosphatase 117 IU/L (40-130); Anion Gap 19.5 (5-19); Aspartate Amino Transferase 71 U/L (0-40); Blood Urea Nitrogen 26 mg/dL (8-23); Calcium 9.2 mg/dL (8.5-10.5); Carbon Dioxide 22 mmol/L (22-29); Chloride 88 mmol/L (98-107); Globulin 3.9 g/dL (1.3-4.6); Glucose 397 mg/dL (65-115); Osmolality Calculated 281 mOsm/kg (285-295); Potassium 4.5 mmol/L (3.5-5.1); Sodium 125 mmol/L (136-145); Total Protein 7.9 g/dL (6.6-8.7)
[2020-11-06] MEDS: sodium chloride 0.9% 1,000 ML 999 ML IV ×2 (19:30→19:37)
[2020-11-06] MEDS: cefTRIAXone 1,000 MG in sodium chloride 0.9% (plus) 50 ML 100 MG IV (20:43)
[2020-11-06 21:51] VITALS: BP 120/66; PULSE 81; RESP 14; O2SAT 98
[2020-11-06 22:35] LABS: Anion Gap 17.4 (5-19); Blood Urea Nitrogen 24 mg/dL (8-23); Carbon Dioxide 21 mmol/L (22-29); Chloride 97 mmol/L (98-107); Glucose 446 mg/dL (65-115); Osmolality Calculated 295 mOsm/kg (285-295); Potassium 4.4 mmol/L (3.5-5.1); Sodium 131 mmol/L (136-145)
[2020-11-06] MEDS: insulin regular-human 100 units/1 mL 5 UNIT IVP (23:23)
[2020-11-07 00:20] LABS: Glucose Point of Care 380 mg/dL (70-110)
[2020-11-07 01:30] VITALS: BP 124/68; PULSE 82; RESP 18; O2SAT 98
== END 2020-11-07 01:32 | disposition home or self-care (01) ==
PROVIDERS: Family Medicine; Emergency Provider Emergency Medicine; PCP Nurse Practitioner
DX: N30.00 Acute cystitis without hematuria (principal); E11.65 Type 2 diabetes mellitus with hyperglycemia; Z79.4 Long term (current) use of insulin; Z79.01 Long term (current) use of anticoagulants; E11.22 Type 2 diabetes mellitus with diabetic chronic kidney disease; I12.9 Hypertensive chronic kidney disease with stage 1 through stage 4 chronic kidney disease, or unspecified chronic kidney disease; N18.30 Chronic kidney disease, stage 3 unspecified; E11.40 Type 2 diabetes mellitus with diabetic neuropathy, unspecified; E78.2 Mixed hyperlipidemia; Z85.038 Personal history of other malignant neoplasm of large intestine
CPT/HCPCS: 36415; 36416; 71045; 80048; 80053; 81001; 82962; 85025; 87077; 87086; 87186; 93005; 96365; 96375; 99284; J0696; J1815; J7030

== ENCOUNTER → 2020-11-22 11:57 | Outpatient (BNVA) | payer MEDICARE, SELFPAY | PROVIDERS: PCP Nurse Practitioner; Visit Provider Nurse Practitioner | DX: N39.490 Overflow incontinence (principal); E11.65 Type 2 diabetes mellitus with hyperglycemia; Z79.4 Long term (current) use of insulin; M79.18 Myalgia, other site | CPT/HCPCS: 80048; 81000; 85025 ==

== ENCOUNTER 2020-11-29 17:32 | Emergency (ER) | payer MEDICARE, SELFPAY ==
[2020-11-29 17:43] VITALS: BP 123/73; PULSE 119; RESP 18; TEMP 36.8; O2SAT 89; BMI 27.6
--- NOTE | 2020-11-29 17:54 | ED_ITS ---
Documented by User: Delroy Pete DO 11/30/20 06:12 HPI - General Adult General: Chief complaint: General Medical Stated complaint: WEAKNESS/ QUESTIONABLE EKG Time Seen by Provider: 11/29/20 17:33 History of Present Illness: HPI narrative: 70-year-old male presents emergency room complaining of weakness nausea vomiting for last week slight cough no diarrhea. Has not previously had Covid nor is he been vaccinated. He is di abetic mildly overweight. Denies chest pain denies abdominal pain he has had a couple episodes of vomiting but no diarrhea.. Onset (ago): week(s) (1) Location: abdomen Severity: mild Quality: aching Pain Consistency: intermittent Relieving factors: none Exacerbating factors: none Associated symptoms: Reports cough, decreased appetite, dyspnea, fevers/chills, malaise, nausea and weakness; Deny chest pain, confusion, diaphoresis, headache(s), rash, palpitations, seizures, short of breath, syncope or vomiting Treatments prior to arrival: none Review of Systems Const: Reports: malaise; Denies: diaphoresis ENMT: Denies: throat pain, ear or mastoid pain, nasal discharge or nasal congestion Card: Denies: chest pain, palpitations or syncope Resp: Reports: dyspnea GI: Reports: nausea; Denies: vomiting : Denies: flank pain, dysuria, urinary frequency or urinary urgency Skin/Breast: Denies: rash Neuro: Denies: headache(s) or confusion PFS ED PFSH: Medical History Anxiety and depression BPH loc w urin obs/LUTS Chronic kidney disease (CKD) stage 3 Chronic painful diabetic neuropathy Controlled diabetes mellitus with hyperglycemia, with long-term current use of insulin Environmental and seasonal allergies Gastric reflux History of deep venous thrombosis (DVT) of distal vein of left lower extremity HTN (hypertension) Incomplete bladder emptying Mixed dyslipidemia Osteoarthritis of knee, unspecified Right Overflow incontinence Urinary retention Vitamin D deficiency, unspecified Surgical History History of partial surgical removal of colon (~11/2014) For colon cancer Hx of colonoscopy 2014 Family History Mother Cancer Lung Father Nicotine addiction Other Hypertension Social History Second hand smoke exposure: No Smoking risk assessment/counseling performed?: No Alcohol intake: former Desire information about alcohol rehabilitation?: No Counseling given: No Desire information about substance/drug rehabilitation?: No Counseling given: No Adopted: No Caregiver/support person: No Lives independently: Yes Household members: none Housing: House Marital status: / service: No Current occupational status: retired History of recent travel: No Current gender identity: Male Physical Exam Const: COMMON NORMALS: no acute distress GENERAL APPEARANCE: cooperative and comfortable ORIENTATION/CONSCIOUSNESS: Yes awake, Yes oriented to person, Yes oriented to place and Yes oriented to time HENMT: COMMON NORMALS: normocephalic, atraumatic and hearing grossly normal bilaterally HEAD & SCALP: normocephalic and atraumatic Eye: COMMON NORMALS: Equal, round and reactive pupils present, EOMs intact bilaterally, conjunctivae normal and no scleral icterus CONJUNCTIVA: Yes conjunctivae normal PUPIL: Yes Equal, round and reactive pupils present Neck/C-Spine: COMMON NORMALS: full ROM, no lymphadenopathy, supple and no JVD Lymph: LYMPHATIC: no lymphadenopathy noted and no lymphedema noted Resp: COMMON NORMALS: normal respiratory effort, No retractions, No use of accessory muscles and clear to auscultation bilaterally AUSCULTATION: clear to auscultation bilaterally Cardio: COMMON NORMALS: no JVD, regular rate, regular rhythm and No murmurs present (Cardio) RATE: regular rate RHYTHM: regular rhythm GI: COMMON NORMALS: Soft to palpation and No hepatosplenomegaly present AUSCULTATION: Yes normoactive bowel sounds PALPATION: Yes Soft to palpation, No Tenderness to palpation present (GI), No Guarding due to palpation present (GI) and Yes No hepatosplenomegaly present Extremity: COMMON NORMALS: normal to inspection, capillary refill normal, no clubbing, cyanosis or edema, no calf tenderness and no pedal edema Neuro: SENSORIUM/ORIENTATION: Yes oriented to person, Yes oriented to place and Yes oriented to time Skin: COMMON NORMALS: no rashes or lesions noted GENERAL SKIN EXAM: no rashes or lesions noted Course Vital Signs: Vital signs: Vital Signs Temperature 98.2 F 11/29/20 17:43 Pulse Rate 104 H 11/29/20 20:45 Respiratory Rate 18 11/29/20 20:45 Blood Pressure 108/68 11/29/20 20:45 Pulse Oximetry 96 11/29/20 20:45 MDM - General Adult MDM Narrative: Medical decision making narrative: Care turned over to Dr. Call at change of shift. See his notes for final diagnosis and disposition Lab Data: Labs: Lab Results 11/29/20 11/29/20 11/29/20 Range/Units 17:55 17:58 17:58 WBC 7.2 (4.0-10.0) 10^3/ uL RBC 4.53 (4.1-5.3) 10^6/u L Hgb 12.7 (11.7-16.6) g/dL Hct 39.7 L (42.0-52.0) % MCV 87.6 (80-94) fL MCH 28.0 (28.0-34.0) pg MCHC 32.0 (30.0-36.0) g/dL RDW 13.6 (12.1-15.1) % Plt Count 149 (130-400) 10^3/c mm MPV 10.0 (7.4-10.4) fL Neut % (Auto) 74.6 % Lymph % (Auto) 11.9 % [place] % (Auto) 12.0 % Eos % (Auto) 0.6 % Baso % (Auto) 0.3 % Neut # (Auto) 5.35 (1.8-7.7) 10^3/u L Lymph # (Auto) 0.9 (0.8-4.8) 10^3/u L [place] # (Auto) 0.9 (0.2-0.9) 10^3/u L Eos # (Auto) 0.0 (0.0-0.8) 10^3/u L Baso # (Auto) 0.0 (0.0-0.1) 10^3/u L Nucleated RBC % (a uto) 0 % Nucleated RBCs # 0.0 /100WBC Sodium 130 L (136-145) mmol/L Potassium 4.5 (3.5-5.1) mmol/L Chloride 100 (98-107) mmol/L Carbon Dioxide 20 L (22-29) mmol/L Anion Gap 14.5 (5-19) BUN 13 (8-23) mg/dL Creatinine 1.3 H (0.7-1.2) mg/dL GFR Calculation Not Reportable Glucose 254 H (65-115) mg/dL Calculated Osmolal ity 279 L (285-295) mOsm/k g Calcium 8.4 L (8.5-10.5) mg/dL Total Bilirubin 0.6 (0.15-1.2) mg/dL AST 18 (0-40) U/L ALT 25 (0-41) U/L Alkaline Phosphata se 80 (40-130) IU/L Creatine Kinase 23 L (39-308) U/L Total Protein 6.1 L (6.6-8.7) g/dL Albumin 3.3 L (3.5-5.2) g/dL Globulin 2.8 (1.3-4.6) g/dL Urine Color (Yellow) Urine Appearance (CLEAR) Urine pH (5-7) Ur Specific Gravit y (1.005-1.030) Urine Protein (Negative) Urine Glucose (UA) (Normal) Urine Ketones (Negative) Urine Blood (Negative) Urine Nitrate (Negative) Urine Bilirubin (Negative) Urine Urobilinogen (Negative) mg/dL Ur Leukocyte Lisset ase (Negative) Urine RBC (0-2) /hpf Urine WBC (0-5) /hpf Ur Squamous Epith Cells (0-5) /hpf Amorphous Sediment Urine Bacteria (NONE) /hpf SARS-CoV-2 Ag (Rap id) Negative (Negative) 11/29/20 Range/Units 18:27 WBC (4.0-10.0) 10^3/ uL RBC (4.1-5.3) 10^6/u L Hgb (11.7-16.6) g/dL Hct (42.0-52.0) % MCV (80-94) fL MCH (28.0-34.0) pg MCHC (30.0-36.0) g/dL RDW (12.1-15.1) % Plt Count (130-400) 10^3/c mm MPV (7.4-10.4) fL Neut % (Auto) % Lymph % (Auto) % [place] % (Auto) % Eos % (Auto) % Baso % (Auto) % Neut # (Auto) (1.8-7.7) 10^3/u L Lymph # (Auto) (0.8-4.8) 10^3/u L [place] # (Auto) (0.2-0.9) 10^3/u L Eos # (Auto) (0.0-0.8) 10^3/u L Baso # (Auto) (0.0-0.1) 10^3/u L Nucleated RBC % (a uto) % Nucleated RBCs # /100WBC Sodium (136-145) mmol/L Potassium (3.5-5.1) mmol/L Chloride (98-107) mmol/L Carbon Dioxide (22-29) mmol/L Anion Gap (5-19) BUN (8-23) mg/dL Creatinine (0.7-1.2) mg/dL GFR Calculation Glucose (65-115) mg/dL Calculated Osmolal ity (285-295) mOsm/k g Calcium (8.5-10.5) mg/dL Total Bilirubin (0.15-1.2) mg/dL AST (0-40) U/L ALT (0-41) U/L Alkaline Phosphata se (40-130) IU/L Creatine Kinase (39-308) U/L Total Protein (6.6-8.7) g/dL Albumin (3.5-5.2) g/dL Globulin (1.3-4.6) g/dL Urine Color Yellow (Yellow) Urine Appearance Cloudy (CLEAR) Urine pH 5 (5-7) Ur Specific Gravit y 1.010 (1.005-1.030) Urine Protein Neg (Negative) Urine Glucose (UA) 4+ H (Normal) Urine Ketones Negative (Negative) Urine Blood 2+ H (Negative) Urine Nitrate Negative (Negative) Urine Bilirubin Neg (Negative) Urine Urobilinogen Norm (Negative) mg/dL Ur Leukocyte Lisset ase 2+ H (Negative) Urine RBC 0-4 H (0-2) /hpf Urine WBC 80-100 H (0-5) /hpf Ur Squamous Epith Cells 0-4 H (0-5) /hpf Amorphous Sediment Not Reportable Urine Bacteria 1+ H (NONE) /hpf SARS-CoV-2 Ag (Rap id) (Negative) Discharge Plan Discharge Patient Disposition: Home Clinical Impression: Controlled diabetes mellitus with hyperglycemia, with long-term current use of insulin, History of deep venous thrombosis (DVT) of distal vein of left lower extremity, Acute UTI Condition: Stable Prescriptions: New doxycycline hyclate 100 mg capsule 100 mg PO BID 7 Days Qty: 14 RF: 0 No Action (DME) Accu-Chek Vonda Plus test strp Strip See Rx Instructions .ROUTE .MEDSUPPLY Qty: 10 RF: 0 nystatin 100,000 unit/gram ointment 1 applic topical BID Qty: 30 RF: 0 Eliquis 5 mg tablet 5 mg PO Q12H Qty: 60 RF: 2 cholecalciferol (vitamin D3) 125 mcg (5,000 unit) capsule 125 mcg PO DAILY Qty: 30 RF: 2 famotidine 20 mg tablet 20 mg PO BID Qty: 60 RF: 2 Tresiba FlexTouch U-100 100 unit/mL (3 mL) insulin pen 75 unit SUBCUT DAILY Qty: 24 RF: 3 Victoza 3-Cecil 0.6 mg/0.1 mL (18 mg/3 mL) pen injector 1.8 mg SUBCUT DAILY Qty: 9 RF: 2 losartan 100 mg tablet 100 mg PO DAILY Qty: 30 RF: 2 sertraline 100 mg tablet 100 mg PO DAILY Qty: 30 RF: 2 finasteride [Proscar] 5 mg tablet 5 mg PO DAILY Qty: 30 RF: 0 (DME) pen needle, diabetic 33 gauge x 5/32 needle See Rx Instructions .ROUTE .MEDSUPPLY Qty: 100 RF: 5 levocetirizine 5 mg Tablet 5 mg PO DAILY PRN (Reason: Allergy Symptoms) RF: 0 tamsulosin 0.4 mg capsule 0.4 mg PO BEDTIME RF: 0 gabapentin 300 mg capsule 600 mg PO BEDTIME RF: 0 hydroxyzine pamoate 25 mg capsule 25 mg PO BEDTIME RF: 0 rosuvastatin 40 mg tablet 40 mg PO BEDTIME RF: 0 Discharge Orders: Discharge ED (Routine); Ordered 11/29/20 Ordered By: John Call Referrals: Linwood Donovan, [employer] [Primary Care Provider] - Discharge Diet: Advance as tolerated Discharge Activity: Resume usual activity Patient Instructions: Opioid Safety Activity Restrictions/Additional Instructions: Encourage p.o. fluids. Take all medications as instructed. Tylenol Motrin as needed for fever pain. Return to the emergency department symptoms fail to improve or worsen. Follow-up with PCP in 5 to 7 days. Patient states understanding of all instructions Coding Level of Care Code ED Ski Binding Fitter And Repairer for Chg Fwd Exam Comprehensive Documented by User: John Call MD 11/29/20 19:30 HPI - General Adult General: Chief complaint: General Medical Stated complaint: WEAKNESS/ QUESTIONABLE EKG Time Seen by Provider: 11/29/20 17:33 PFSH ED PFSH: Medical History Anxiety and depression BPH loc w urin obs/LUTS Chronic kidney disease (CKD) stage 3 Chronic painful diabetic neuropathy Controlled diabetes mellitus with hyperglycemia, with long-term current use of insulin Environmental and seasonal allergies Gastric reflux History of deep venous thrombosis (DVT) of distal vein of left lower extremity HTN (hypertension) Incomplete bladder emptying Mixed dyslipidemia Osteoarthritis of knee, unspecified Right Overflow incontinence Urinary retention Vitamin D deficiency, unspecified Surgical History History of partial surgical removal of colon (~11/2014) For colon cancer Hx of colonoscopy 2014 Family History Mother Cancer Lung Father Nicotine addiction Other Hypertension Social History Second hand smoke exposure: No Smoking risk assessment/counseling performed?: No Alcohol intake: former Desire information about alcohol rehabilitation?: No Counseling given: No Desire information about substance/drug rehabilitation?: No Counseling given: No Adopted: No Caregiver/support person: No Lives independently: Yes Household members: none Housing: House Marital status: / service: No Current occupational status: retired History of recent travel: No Current gender identity: Male Course Reevaluation(s): Reevaluation #1: The acute findings of then a urinary tract infection. Patient receiving IV Rocephin in the emergency department. Patient denies any shortness of breath. Patient denies any significant significant illnesses. He believes that he got a urinary tract infection about a week or so ago after having were urinary catheter for a few days. Patient offered admission to the hospital but declines wishes to be discharged home. He is agreeable to be discharged home on antibiotics. Will follow up with primary care physician. Patient is Covid negative today. Patient given the following instructions. Encourage p.o. fluids. Take all medications as instructed. Tylenol Motrin as needed for fever pain. Return to the emergency department symptoms fail to improve or worsen. Follow-up with PCP in 5 to 7 days. Patient states understanding of all instructions Time: 19:28 Vital Signs: Vital signs: Vital Signs Temperature 98.2 F 11/29/20 17:43 Pulse Rate 104 H 11/29/20 20:45 Respiratory Rate 18 11/29/20 20:45 Blood Pressure 108/68 11/29/20 20:45 Pulse Oximetry 96 11/29/20 20:45 MDM - General Adult MDM Narrative: Medical decision making narrative: The acute findings of then a urinary tract infection. Patient receiving IV Rocephin in the emergency department. Patient denies any shortness of breath. Patient denies any significant significant illnesses. He believes that he got a urinary tract infection about a week or so ago after having were urinary catheter for a few days. Patient offered admission to the hospital but declines wishes to be discharged home. He is agreeable to be discharged home on antibiotics. Will follow up with primary care physician. Patient is Covid negative today. Patient given the following instructions. Encourage p.o. fluids. Take all medications as instructed. Tylenol Motrin as needed for fever pain. Return to the emergency department symptoms fail to improve or worsen. Follow-up with PCP in 5 to 7 days. Patient states understanding of all instructions Lab Data: Labs: Lab Results 11/29/20 11/29/20 11/29/20 Range/Units 17:55 17:58 17:58 WBC 7.2 (4.0-10.0) 10^3/ uL RBC 4.53 (4.1-5.3) 10^6/u L Hgb 12.7 (11.7-16.6) g/dL Hct 39.7 L (42.0-52.0) % MCV 87.6 (80-94) fL MCH 28.0 (28.0-34.0) pg MCHC 32.0 (30.0-36.0) g/dL RDW 13.6 (12.1-15.1) % Plt Count 149 (130-400) 10^3/c mm MPV 10.0 (7.4-10.4) fL Neut % (Auto) 74.6 % Lymph % (Auto) 11.9 % [place] % (Auto) 12.0 % Eos % (Auto) 0.6 % Baso % (Auto) 0.3 % Neut # (Auto) 5.35 (1.8-7.7) 10^3/u L Lymph # (Auto) 0.9 (0.8-4.8) 10^3/u L [place] # (Auto) 0.9 (0.2-0.9) 10^3/u L Eos # (Auto) 0.0 (0.0-0.8) 10^3/u L Baso # (Auto) 0.0 (0.0-0.1) 10^3/u L Nucleated RBC % (a uto) 0 % Nucleated RBCs # 0.0 /100WBC Sodium 130 L (136-145) mmol/L Potassium 4.5 (3.5-5.1) mmol/L Chloride 100 (98-107) mmol/L Carbon Dioxide 20 L (22-29) mmol/L Anion Gap 14.5 (5-19) BUN 13 (8-23) mg/dL Creatinine 1.3 H (0.7-1.2) mg/dL GFR Calculation Not Reportable Glucose 254 H (65-115) mg/dL Calculated Osmolal ity 279 L (285-295) mOsm/k g Calcium 8.4 L (8.5-10.5) mg/dL Total Bilirubin 0.6 (0.15-1.2) mg/dL AST 18 (0-40) U/L ALT 25 (0-41) U/L Alkaline Phosphata se 80 (40-130) IU/L Creatine Kinase 23 L (39-308) U/L Total Protein 6.1 L (6.6-8.7) g/dL Albumin 3.3 L (3.5-5.2) g/dL Globulin 2.8 (1.3-4.6) g/dL Urine Color (Yellow) Urine Appearance (CLEAR) Urine pH (5-7) Ur Specific Gravit y (1.005-1.030) Urine Protein (Negative) Urine Glucose (UA) (Normal) Urine Ketones (Negative) Urine Blood (Negative) Urine Nitrate (Negative) Urine Bilirubin (Negative) Urine Urobilinogen (Negative) mg/dL Ur Leukocyte Lisset ase (Negative) Urine RBC (0-2) /hpf Urine WBC (0-5) /hpf Ur Squamous Epith Cells (0-5) /hpf Amorphous Sediment Urine Bacteria (NONE) /hpf SARS-CoV-2 Ag (Rap id) Negative (Negative) 11/29/20 Range/Units 18:27 WBC (4.0-10.0) 10^3/ uL RBC (4.1-5.3) 10^6/u L Hgb (11.7-16.6) g/dL Hct (42.0-52.0) % MCV (80-94) fL MCH (28.0-34.0) pg MCHC (30.0-36.0) g/dL RDW (12.1-15.1) % Plt Count (130-400) 10^3/c mm MPV (7.4-10.4) fL Neut % (Auto) % Lymph % (Auto) % [place] % (Auto) % Eos % (Auto) % Baso % (Auto) % Neut # (Auto) (1.8-7.7) 10^3/u L Lymph # (Auto) (0.8-4.8) 10^3/u L [place] # (Auto) (0.2-0.9) 10^3/u L Eos # (Auto) (0.0-0.8) 10^3/u L Baso # (Auto) (0.0-0.1) 10^3/u L Nucleated RBC % (a uto) % Nucleated RBCs # /100WBC Sodium (136-145) mmol/L Potassium (3.5-5.1) mmol/L Chloride (98-107) mmol/L Carbon Dioxide (22-29) mmol/L Anion Gap (5-19) BUN (8-23) mg/dL Creatinine (0.7-1.2) mg/dL GFR Calculation Glucose (65-115) mg/dL Calculated Osmolal ity (285-295) mOsm/k g Calcium (8.5-10.5) mg/dL Total Bilirubin (0.15-1.2) mg/dL AST (0-40) U/L ALT (0-41) U/L Alkaline Phosphata se (40-130) IU/L Creatine Kinase (39-308) U/L Total Protein (6.6-8.7) g/dL Albumin (3.5-5.2) g/dL Globulin (1.3-4.6) g/dL Urine Color Yellow (Yellow) Urine Appearance Cloudy (CLEAR) Urine pH 5 (5-7) Ur Specific Gravit y 1.010 (1.005-1.030) Urine Protein Neg (Negative) Urine Glucose (UA) 4+ H (Normal) Urine Ketones Negative (Negative) Urine Blood 2+ H (Negative) Urine Nitrate Negative (Negative) Urine Bilirubin Neg (Negative) Urine Urobilinogen Norm (Negative) mg/dL Ur Leukocyte Lisset ase 2+ H (Negative) Urine RBC 0-4 H (0-2) /hpf Urine WBC 80-100 H (0-5) /hpf Ur Squamous Epith Cells 0-4 H (0-5) /hpf Amorphous Sediment Not Reportable Urine Bacteria 1+ H (NONE) /hpf SARS-CoV-2 Ag (Rap id) (Negative) Discharge Plan Discharge Patient Disposition: Home Clinical Impression: Controlled diabetes mellitus with hyperglycemia, with long-term current use of insulin, History of deep venous thrombosis (DVT) of distal vein of left lower extremity, Acute UTI Condition: Stable Prescriptions: New doxycycline hyclate 100 mg capsule 100 mg PO BID 7 Days Qty: 14 RF: 0 No Action (DME) Accu-Chek Vonda Plus test strp Strip See Rx Instructions .ROUTE .MEDSUPPLY Qty: 10 RF: 0 nystatin 100,000 unit/gram ointment 1 applic topical BID Qty: 30 RF: 0 Eliquis 5 mg tablet 5 mg PO Q12H Qty: 60 RF: 2 cholecalciferol (vitamin D3) 125 mcg (5,000 unit) capsule 125 mcg PO DAILY Qty: 30 RF: 2 famotidine 20 mg tablet 20 mg PO BID Qty: 60 RF: 2 Tresiba FlexTouch U-100 100 unit/mL (3 mL) insulin pen 75 unit SUBCUT DAILY Qty: 24 RF: 3 Victoza 3-Cecil 0.6 mg/0.1 mL (18 mg/3 mL) pen injector 1.8 mg SUBCUT DAILY Qty: 9 RF: 2 losartan 100 mg tablet 100 mg PO DAILY Qty: 30 RF: 2 sertraline 100 mg tablet 100 mg PO DAILY Qty: 30 RF: 2 finasteride [Proscar] 5 mg tablet 5 mg PO DAILY Qty: 30 RF: 0 (DME) pen needle, diabetic 33 gauge x 5/32 needle See Rx Instructions .ROUTE .MEDSUPPLY Qty: 100 RF: 5 levocetirizine 5 mg Tablet 5 mg PO DAILY PRN (Reason: Allergy Symptoms) RF: 0 tamsulosin 0.4 mg capsule 0.4 mg PO BEDTIME RF: 0 gabapentin 300 mg capsule 600 mg PO BEDTIME RF: 0 hydroxyzine pamoate 25 mg capsule 25 mg PO BEDTIME RF: 0 rosuvastatin 40 mg tablet 40 mg PO BEDTIME RF: 0 Discharge Orders: Discharge ED (Routine); Ordered 11/29/20 Ordered By: John Call Referrals: Linwood Donovan, [employer] [Primary Care Provider] - Discharge Diet: Advance as tolerated Discharge Activity: Resume usual activity Patient Instructions: Opioid Safety Activity Restrictions/Additional Instructions: Encourage p.o. fluids. Take all medications as instructed. Tylenol Motrin as needed for fever pain. Return to the emergency department symptoms fail to impr ove or worsen. Follow-up with PCP in 5 to 7 days. Patient states understanding of all instructions Coding Level of Care Code ED Ski Binding Fitter And Repairer for Beck Fwd Exam Comprehensive
--- NOTE | 2020-11-29 17:57 | XRR_ITS ---
PROCEDURE INFORMATION: Exam: XR Chest Exam date and time: 11/29/2020 5:57 PM Age: 70 years old Clinical indication: Other: Weakness; Additional info: Dyspnea/cough TECHNIQUE: Imaging protocol: XR of the chest. Views: 1 view. Total images: 1 COMPARISON: 1. CR (CHEST, ) 11/06/2020 7:[address] chest abd pel w con* 06/15/2020 1:31:48 PM FINDINGS: Lungs: No visible active interstitial or alveolar airspace disease. COPD/chronic bronchitis. Senile fibrosis. Minimal chronic discoid atelectasis left lung base. Calcified granulomas of antecedent disease. Pleural spaces: Unremarkable. No pleural effusion. No pneumothorax. Heart/Mediastinum: Cardiac structures and configuration stable. No cardiomegaly. Hiatal hernia. Bones/joints: Unremarkable. XR/XR chest 1V portable [id number] IMPRESSION: Nonacute.
[2020-11-29 18:19] LABS: Basophils % 0.3 %; Eosinophils % 0.6 %; Hematocrit 39.7 % (42.0-52.0); Hemoglobin 12.7 g/dL (11.7-16.6); Lymphocytes # 0.9 10^3/uL (0.8-4.8); Lymphocytes % 11.9 %; Mean Corpuscular Volume 87.6 fL (80-94); Monocytes # 0.9 10^3/uL (0.2-0.9); Neutrophils # 5.35 10^3/uL (1.8-7.7); Neutrophils % 74.6 %; Nucleated Red Blood Cells % 0 %; Platelet Count 149 10^3/cmm (130-400); Red Blood Count 4.53 10^6/uL (4.1-5.3); Red Cell Distribution Width 13.6 % (12.1-15.1); White Blood Count 7.2 10^3/uL (4.0-10.0)
[2020-11-29 18:31] VITALS: BP 112/89; PULSE 112; RESP 18; O2SAT 96
[2020-11-29 18:37] LABS: Alanine Aminotransferase 25 U/L (0-41); Albumin Level 3.3 g/dL (3.5-5.2); Alkaline Phosphatase 80 IU/L (40-130); Anion Gap 14.5 (5-19); Aspartate Amino Transferase 18 U/L (0-40); Blood Urea Nitrogen 13 mg/dL (8-23); Calcium 8.4 mg/dL (8.5-10.5); Carbon Dioxide 20 mmol/L (22-29); Chloride 100 mmol/L (98-107); Creatine Phosphokinase 23 U/L (39-308); Creatinine Clr Calc Pharmacy 60.7156; Globulin 2.8 g/dL (1.3-4.6); Glucose 254 mg/dL (65-115); Osmolality Calculated 279 mOsm/kg (285-295); Potassium 4.5 mmol/L (3.5-5.1); Sodium 130 mmol/L (136-145); Total Bilirubin 0.6 mg/dL (0.15-1.2); Total Protein 6.1 g/dL (6.6-8.7)
[2020-11-29 18:47] LABS: Add Urine Culture? Yes; Add Urine Microscopic? YES; Bacteria Urine 1+ /hpf; Bilirubin Urine Neg (Negative); Blood Urine 2+ (Negative); Glucose Urine UA 4+ (Normal); Ketones Urine Negative (Negative); Leukocyte Esterase Urine 2+ (Negative); Nitrate Urine Negative (Negative); Protein Urine Neg (Negative); RBC Urine 0-4 /hpf (0-2); Squamous Epithelial Cell Urine 0-4 /hpf (0-5); Urine Appearance Cloudy (CLEAR); Urine Color Yellow (Yellow); Urobilinogen Urine Norm (Negative); WBC Urine 80-100 /hpf (0-5); pH Urine 5 (5-7)
[2020-11-29 18:57] LABS: SARS Covid-2 Antigen Negative (Negative)
[2020-11-29 19:00] VITALS: BP 110/77; PULSE 108; RESP 18; O2SAT 96
[2020-11-29] MEDS: cefTRIAXone 1,000 MG in sodium chloride 0.9% (plus) 100 ML 200 MG IV (19:22)
[2020-11-29 19:47] VITALS: BP 117/71; PULSE 113; RESP 24; O2SAT 96
[2020-11-29 20:45] VITALS: BP 108/68; PULSE 104; RESP 18; O2SAT 96
[2020-11-30 16:24] LABS: Coronavirus Test Green County Not Detected
== END 2020-11-29 20:30 | disposition home or self-care (01) ==
PROVIDERS: Emergency Provider Family Medicine; PCP Nurse Practitioner
DX: N39.0 Urinary tract infection, site not specified (principal); E11.65 Type 2 diabetes mellitus with hyperglycemia; E11.22 Type 2 diabetes mellitus with diabetic chronic kidney disease; E11.40 Type 2 diabetes mellitus with diabetic neuropathy, unspecified; I12.9 Hypertensive chronic kidney disease with stage 1 through stage 4 chronic kidney disease, or unspecified chronic kidney disease; N18.30 Chronic kidney disease, stage 3 unspecified; E78.2 Mixed hyperlipidemia; E66.9 Obesity, unspecified; Z68.27 Body mass index [BMI] 27.0-27.9, adult; Z79.4 Long term (current) use of insulin; Z79.01 Long term (current) use of anticoagulants; Z86.718 Personal history of other venous thrombosis and embolism
CPT/HCPCS: 71045; 80053; 81001; 82550; 85025; 87077; 87086; 87186; 87426; 87635; 96365; 99284; J0696

== ENCOUNTER 2020-12-08 04:46 | Outpatient (CLI) | payer MEDICARE, SELFPAY ==
[2020-12-08 06:00] VITALS: BP 96/62; PULSE 84; TEMP 36.8; O2SAT 92
--- NOTE | 2020-12-08 06:18 | A.OFFVIS_ITS ---
Patient Information COVID 19 common symptoms: positive fever(s), chills, cough, non-productive cough, dyspnea, fatigue, body aches, headache(s), nasal congestion and nausea COVID 19 other sytmptoms: negative requiring oxygen Severity: mild Treatment prior to arrival: none Other details: 70-year-old male was seen earlier this week had a UTI. He was rechecked for Covid later at an outside facility and had a positive is referred for monoclonal antibody. Reviewed risk benefits alternatives he wishes to proceed [facility] COVID test results: SARS-CoV-2 Antigen (Rapid) Negative (Negative) 11/29/20 17:55 11/29/20 Nasal/Oral Coronavirus 2019 PCR Not detected 11/29/20 18:27 11/29/20 Criteria/Plan Inclusion/Exclusion Criteria weight >/= 40kg, + direct test </= 10 days ago and symptom onset </= 10 days ago age >/= 65 and age >/= 55 and has hypertension not requiring hospitalization, not requiring oxygen (if not chronically on oxygen) and no increase oxygen requirement (if chronically on oxygen) Patient education patient/family/caregiver received/reviewed fact sheet, Emergency Use Authorization/unapproved drug status discussed with patient/family/caregiver, alternatives to this treatment discussed with patient/family/caregiver, risks and benefits of medication reviewed with patient/family/caregiver, patient/family/caregiver given opportunity for questions, which were answered and patient consents to receiving Monoclonal Antibody Treatment Plan for treatment Meets criteria for Monoclonal Antibody infusion Ordering Monoclonal Antibody infusion for today
[2020-12-08 08:31] VITALS: BP 127/83; PULSE 79; TEMP 36.9; O2SAT 91
== END 2020-12-08 08:32 | disposition home or self-care (01) ==
LOC: ER 04:48
PROVIDERS: PCP Nurse Practitioner; Visit Provider Nurse Practitioner Family
DX: U07.1 COVID-19 (principal)

== ENCOUNTER 2020-12-10 18:33 | Inpatient (IN) | payer MEDICARE, SELFPAY ==
[2020-12-10 18:46] VITALS: BP 117/81; PULSE 87; RESP 16; TEMP 36.2; O2SAT 93; BMI 27.1
--- NOTE | 2020-12-10 19:11 | XRR_ITS ---
PROCEDURE INFORMATION: Exam: XR Chest Exam date and time: 12/10/2020 7:11 PM Age: 70 years old Clinical indication: Dyspnea; Additional info: SOB TECHNIQUE: Imaging protocol: XR of the chest. Views: 1 view. COMPARISON: CR (CHEST, ) 11/29/2020 6:[address] chest 06/15/2020 FINDINGS: Lungs: Chronic interstitial changes in both lungs. Mild ground-glass opacities in the lung bases are not significantly changed. Pleural spaces: Unremarkable. No pleural effusion. No pneumothorax. Heart/Mediastinum: The heart size is upper normal. Bones/joints: Unremarkable. Organs: Large hiatal/gastric hernia. XR/XR chest 1V portable [id number] IMPRESSION: 1. Chronic interstitial scarring in both lungs. No definite acute finding.
--- NOTE | 2020-12-10 19:15 | ECG_ITS ---
[facility] ED Test Date: 2020-12-10 Pat Name: Percy Coronado Department: Room: Gender: Male Systems Designer: : 1950 Requested By: Ra Duke Order Number: [id number] Violette MD: Deborah Carver M.D. Measurements Intervals [place] Rate: 88 P: 9 AR: 189 QRS: 104 QRSD: 127 T: -16 QT: 414 QTc: 503 Interpretive Statements SINUS RHYTHM WITH OCCASIONAL SUPRAVENTRICULAR PREMATURE COMPLEXES MARKED RIGHT AXIS DEVIATION [QRS AXIS > 100] RIGHT BUNDLE BRANCH BLOCK [120+ ms QRS DURATION, UPRIGHT V1, 40+ ms S IN I/aVL/V4/V5/V6] POSSIBLE ANTERIOR MYOCARDIAL INFARCTION, OF INDETERMINATE AGE MODERATE T-WAVE ABNORMALITY, CONSIDER INFERIOR ISCHEMIA Compared to ECG 11/06/2020 19:09:12 Right-axis deviation now present T-wave abnormality now present Possible ischemia now present Left anterior fascicular block no longer present Left ventricular hypertrophy no longer present Myocardial infarct finding still present Electronically Signed On 12-14-2020 12:34:11 CDT by Deborah Carver M.D. [id number]
--- NOTE | 2020-12-10 19:43 | W.ED.COVID ---
HPI - COVID General: Chief Complaint: COVID symptoms Stated Complaint: covid +, SOB, new onset afib Time Seen by Provider: 12/10/20 18:37 Triage information: Has fever, cough or shortness of breath. Exposure to COVID + person last 14 days History of Present Illness: HPI Narrative: 70-year-old male diagnosed with COVID-19 last week, and given the monoclonal antibody infusion on . He presents with worsening weakness, some shortness of breath, activity intolerance, diarrhea, etc. He denies fevers. MD complaint: known COVID positive Prior covid testing: yes, results known (outside faciltiy 12/07 ) COVID 19 common symptoms: positive chills, cough, non-productive cough, dyspnea, fatigue, body aches and diarrhea; negative fever(s), headache(s) or vomiting COVID 19 other sytmptoms: positive requiring oxygen and lethargy; negative chest pressure or chest pain Onset (ago): day(s) Severity: slowly worsening Pertinent comorbid conditions: diabetes and hypertension Treatment prior to arrival: acetaminophen and monocloncal antibody COVID Results: SARS-CoV-2 Antigen (Rapid) Negative (Negative) 11/29/20 17:55 11/29/20 Nasal/Oral Coronavirus 2019 PCR Not detected 11/29/20 18:27 11/29/20 Review of Systems Const: Reports: chills, body aches and fatigue; Denies: fever(s) Card: Denies: chest pain Resp: Reports: dyspnea and non-productive cough GI: Reports: diarrhea; Denies: vomiting Neuro: Denies: headache(s) PFSH ED PFSH: Medical History Anxiety and depression BPH loc w urin obs/LUTS Chronic kidney disease (CKD) stage 3 Chronic painful diabetic neuropathy Controlled diabetes mellitus with hyperglycemia, with long-term current use of insulin Environmental and seasonal allergies Gastric reflux History of deep venous thrombosis (DVT) of distal vein of left lower extremity HTN (hypertension) Incomplete bladder emptying Mixed dyslipidemia Osteoarthritis of knee, unspecified Right Overflow incontinence Urinary retention Vitamin D deficiency, unspecified Surgical History History of partial surgical removal of colon (~11/2014) For colon cancer Hx of colonoscopy 2014 Family History Mother Cancer Lung Father Nicotine addiction Other Hypertension Social History Second hand smoke exposure: No Smoking risk assessment/counseling performed?: No Alcohol intake: former Desire information about alcohol rehabilitation?: No Counseling given: No Desire information about substance/drug rehabilitation?: No Counseling given: No Adopted: No Caregiver/support person: No Lives independently: Yes Household members: none Housing: House Marital status: / service: No Current occupational status: retired History of recent travel: No Current gender identity: Male Physical Exam Const: COMMON NORMALS: patient oriented x3 GENERAL APPEARANCE: in distress, lethargic, ill appearing and frail appearing; not comfortable ORIENTATION/CONSCIOUSNESS: Yes lethargic Eye: COMMON NORMALS: Equal, round and reactive pupils present PUPIL: Yes Equal, round and reactive pupils present Chest: COMMONS NORMALS: normal inspection of the chest Resp: COMMON NORMALS: clear to auscultation bilaterally EFFORT & INSPECTION: Yes tachypneic, Yes respiratory distress, Yes labored and Yes uses accessory muscles AUSCULTATION: clear to auscultation bilaterally Cardio: COMMON NORMALS: regular rate RATE: regular rate RHYTHM: abnormal rhythm irregularly irregular GI: COMMON NORMALS: Normal to inspection, nondistended, normoactive bowel sounds present and Soft to palpation PALPATION: Yes Soft to palpation Neuro: COMMON NORMALS: patient oriented x3 SENSORIUM/ORIENTATION: Yes lethargic Course Consultations: Consultation #1: aren Time: 21:43 Vital Signs: Vital signs: Vital Signs Temperature 97.2 F L 12/10/20 18:46 Pulse Rate 82 12/10/20 21:21 Respiratory Rate 29 H 12/10/20 21:21 Blood Pressure 109/71 12/10/20 21:21 Pulse Oximetry 92 12/10/20 21:21 MDM - COVID MDM Narrative: Medical decision making narrative: Patient's blood gas on 5 L shows a significantly low PO2. He was placed on a nonrebreather. BUN is 41, creatinine 2.9 which is a significant bump. His potassium is 5.4. His BNP is significantly elevated. X-ray shows some pneumonitis superimposed on interstitial fibrosis chronically. He is quite weak. Vitals 119/79, heart rate is sinus with frequent PVCs with a heart rate of 80. Pulse ox is 93% on 12 L. He will be admitted for antiviral therapy, dexamethasone, etc. Lab Data: Labs: Lab Results 12/10/20 12/10/20 12/10/20 Range/Units 19:39 19:50 19:50 WBC 8.5 (4.0-10.0) 10^3/ uL RBC 4.77 (4.1-5.3) 10^6/u L Hgb 13.3 (11.7-16.6) g/dL Hct 39.6 L (42.0-52.0) % MCV 83.0 (80-94) fL MCH 27.9 L (28.0-34.0) pg MCHC 33.6 (30.0-36.0) g/dL RDW 13.6 (12.1-15.1) % Plt Count 300 (130-400) 10^3/c mm MPV 10.0 (7.4-10.4) fL Neut % (Auto) 88.6 % Lymph % (Auto) 6.9 % Fajardo % (Auto) 4.0 % Eos % (Auto) 0.1 % Baso % (Auto) 0.0 % Neut # (Auto) 7.54 (1.8-7.7) 10^3/u L Lymph # (Auto) 0.6 L (0.8-4.8) 10^3/u L Fajardo # (Auto) 0.3 (0.2-0.9) 10^3/u L Eos # (Auto) 0.0 (0.0-0.8) 10^3/u L Baso # (Auto) 0.0 (0.0-0.1) 10^3/u L Nucleated RBC % (a uto) 0 % Nucleated RBCs # 0.0 /100WBC PT 14.20 (12.1-14.9) SECO NDS INR 1.07 (0.8-1.2) APTT 30.0 (23.9-36.7) SECO NDS D-Dimer 3.99 H (0-0.59) ug/mIFE U Specimen Type Arterial Sample Site Brachial, left ABG pH 7.49 H (7.35-7.45) ABG pCO2 28.7 L (35-45) mmHg ABG pO2 44.4 L (80.0-100.0) mmH g ABG HCO3 21.8 L (22-26) mmol/L ABG Base Excess -0.5 (-2.0-2.0) mmol/ L Lg Test Pos Hematocrit 40.7 L (42-52) % O2 Delivery Device Nc O2 Liters/Min 5.0 % Small Lot Operator ID Cak Sodium (136-145) mmol/L Potassium (3.5-5.1) mmol/L Chloride (98-107) mmol/L Carbon Dioxide (22-29) mmol/L Anion Gap (5-19) BUN (8-23) mg/dL Creatinine (0.7-1.2) mg/dL GFR Calculation Glucose (65-115) mg/dL Calculated Osmolal ity (285-295) mOsm/k g Lactic Acid (0.5-2.2) mmol/L Calcium (8.5-10.5) mg/dL Magnesium (1.7-2.3) mg/dL Total Bilirubin (0.15-1.2) mg/dL AST (0-40) U/L ALT (0-41) U/L Alkaline Phosphata se (40-130) IU/L Troponin T Baselin e (0-15) ng/L C-Reactive Protein (0.0-4.9) mg/L NT-Pro-B Natriuret Pep (0-125) pg/mL Total Protein (6.6-8.7) g/dL Albumin (3.5-5.2) g/dL Globulin (1.3-4.6) g/dL Procalcitonin (0-0.5) ng/mL 12/10/20 12/10/20 12/10/20 Range/Units 19:50 19:50 19:50 WBC (4.0-10.0) 10^3/ uL RBC (4.1-5.3) 10^6/u L Hgb (11.7-16.6) g/dL Hct (42.0-52.0) % MCV (80-94) fL MCH (28.0-34.0) pg MCHC (30.0-36.0) g/dL RDW (12.1-15.1) % Plt Count (130-400) 10^3/c mm MPV (7.4-10.4) fL Neut % (Auto) % Lymph % (Auto) % Fajardo % (Auto) % Eos % (Auto) % Baso % (Auto) % Neut # (Auto) (1.8-7.7) 10^3/u L Lymph # (Auto) (0.8-4.8) 10^3/u L Fajardo # (Auto) (0.2-0.9) 10^3/u L Eos # (Auto) (0.0-0.8) 10^3/u L Baso # (Auto) (0.0-0.1) 10^3/u L Nucleated RBC % (a uto) % Nucleated RBCs # /100WBC PT (12.1-14.9) SECO NDS INR (0.8-1.2) APTT (23.9-36.7) SECO NDS D-Dimer (0-0.59) ug/mIFE U Specimen Type Sample Site ABG pH (7.35-7.45) ABG pCO2 (35-45) mmHg ABG pO2 (80.0-100.0) mmH g ABG HCO3 (22-26) mmol/L ABG Base Excess (-2.0-2.0) mmol/ L Lg Test Hematocrit (42-52) % O2 Delivery Device O2 Liters/Min % Small Lot Operator ID Sodium 135 L (136-145) mmol/L Potassium 5.4 H (3.5-5.1) mmol/L Chloride 97 L (98-107) mmol/L Carbon Dioxide 27 (22-29) mmol/L Anion Gap 16.4 (5-19) BUN 41 H (8-23) mg/dL Creatinine 2.9 H (0.7-1.2) mg/dL GFR Calculation Not Reportable Glucose 125 H (65-115) mg/dL Calculated Osmolal ity 292 (285-295) mOsm/k g Lactic Acid 1.0 (0.5-2.2) mmol/L Calcium 9.0 (8.5-10.5) mg/dL Magnesium 3.1 H (1.7-2.3) mg/dL Total Bilirubin 0.3 (0.15-1.2) mg/dL AST 13 (0-40) U/L ALT < 5 (0-41) U/L Alkaline Phosphata se 51 (40-130) IU/L Troponin T Baselin e 13 (0-15) ng/L C-Reactive Protein 2.9 (0.0-4.9) mg/L NT-Pro-B Natriuret Pep 66233 H (0-125) pg/mL Total Protein 6.1 L (6.6-8.7) g/dL Albumin 3.4 L (3.5-5.2) g/dL Globulin 2.7 (1.3-4.6) g/dL Procalcitonin 0.15 (0-0.5) ng/mL COVID Results: SARS-CoV-2 Antigen (Rapid) Negative (Negative) 11/29/20 17:55 11/29/20 Nasal/Oral Coronavirus 2019 PCR Not detected 11/29/20 18:27 11/29/20 Discharge Plan Discharge Patient Disposition: Admitted As Inpatient Clinical Impression: Respiratory failure Qualifiers: Chronicity: acute Respiratory failure complication: hypoxia Qualified Code(s): J96.01 - Acute respiratory failure with hypoxia Condition: Serious Coding Level of Care Code ED Director Of Revenue Cycle Management for Beck Fwd Exam Detailed
[2020-12-10 19:50] LABS: ABG PCO2 28.7 mmHg (35-45); ABG PH Result 7.49 (7.35-7.45); Arterial Blood Gas Hematocrit 40.7 % (42-52); Base Excess ABG -0.5 mmol/L (-2.0-2.0); Blood Gas Allen Test Pos; Blood Gas Operator Identificat CAK; Blood Gas Sample Site Brachial, left; Blood Gas Sample Type Arterial; HCO3 ABG 21.8 mmol/L (22-26); Oxygen Device NC; PO2 ABG 44.4 mmHg (80.0-100.0)
[2020-12-10] MEDS: dexamethasone 4 mg/mL INJ 6 MG IVP (20:02)
[2020-12-10 20:14] LABS: Eosinophils % 0.1 %; Hematocrit 39.6 % (42.0-52.0); Hemoglobin 13.3 g/dL (11.7-16.6); Lymphocytes # 0.6 10^3/uL (0.8-4.8); Lymphocytes % 6.9 %; Mean Corpuscular HGB Conc 33.6 g/dL (30.0-36.0); Mean Corpuscular Hemoglobin 27.9 pg (28.0-34.0); Monocytes # 0.3 10^3/uL (0.2-0.9); Neutrophils # 7.54 10^3/uL (1.8-7.7); Neutrophils % 88.6 %; Nucleated Red Blood Cells % 0 %; Platelet Count 300 10^3/cmm (130-400); Red Blood Count 4.77 10^6/uL (4.1-5.3); Red Cell Distribution Width 13.6 % (12.1-15.1); White Blood Count 8.5 10^3/uL (4.0-10.0)
[2020-12-10 20:27] LABS: INR 1.07 (0.8-1.2)
[2020-12-10 20:30] LABS: D Dimer 3.99 ug/mIFEU (0-0.59)
[2020-12-10 20:34] LABS: Troponin(5th) Baseline 13 ng/L (0-15)
[2020-12-10 20:43] LABS: NT Pro B Type Natriuretic Pept 16424 pg/mL (0-125); Procalcitonin 0.15 ng/mL (0-0.5)
[2020-12-10 20:45] VITALS: O2SAT 85
[2020-12-10 20:54] LABS: Alanine Aminotransferase < 5 U/L (0-41); Albumin Level 3.4 g/dL (3.5-5.2); Alkaline Phosphatase 51 IU/L (40-130); Anion Gap 16.4 (5-19); Aspartate Amino Transferase 13 U/L (0-40); Blood Urea Nitrogen 41 mg/dL (8-23); C Reactive Protein 2.9 mg/L (0.0-4.9); Carbon Dioxide 27 mmol/L (22-29); Chloride 97 mmol/L (98-107); Globulin 2.7 g/dL (1.3-4.6); Glucose 125 mg/dL (65-115); Magnesium 3.1 mg/dL (1.7-2.3); Osmolality Calculated 292 mOsm/kg (285-295); Potassium 5.4 mmol/L (3.5-5.1); Sodium 135 mmol/L (136-145); Total Bilirubin 0.3 mg/dL (0.15-1.2); Total Protein 6.1 g/dL (6.6-8.7)
--- NOTE | 2020-12-10 21:15 | ECG_ITS ---
[facility] Test Date: 2020-12-10 Pat Name: Percy Coronado Department: Room: Gender: Male Dial Polisher: : 1950 Requested By: Ra Duke Order Number: [id number] Violette MD: JOSIE DOVE Measurements Intervals [place] Rate: 78 P: 51 MD: 199 QRS: -44 QRSD: 138 T: 63 QT: 432 QTc: 495 Interpretive Statements SINUS RHYTHM WITH FREQUENT SUPRAVENTRICULAR PREMATURE COMPLEXES MARKED LEFT AXIS DEVIATION [QRS AXIS < -30] INTRAVENTRICULAR CONDUCTION DELAY [130+ ms QRS DURATION] VOLTAGE CRITERIA FOR LVH POSSIBLE ANTERIOR MYOCARDIAL INFARCTION,OF INDETERMINATE AGE Compared to ECG 12/10/2020 19:00:22 Left-axis deviation now present Intraventricular conduction delay now present Left ventricular hypertrophy now present Right-axis deviation no longer present Right bundle-branch block no longer present Possible ischemia no longer present Myocardial infarct finding still present Electronically Signed On 12-11-2020 23:37:23 CDT by JOSIE DOVE [id number]
[2020-12-10 21:21] VITALS: BP 109/71; PULSE 82; RESP 29; O2SAT 92
[2020-12-10 22:20] VITALS: BP 116/74; PULSE 78; RESP 30; O2SAT 91
[2020-12-10] MEDS: remdesivir 200 MG in sodium chloride 0.9% (100 ml) 100 ML 100 MG IV (23:01)
[2020-12-10 23:59] VITALS: BP 123/83; PULSE 68; RESP 29; O2SAT 92
[2020-12-11] VITALS (54 sets, daily range): BP systolic 105–134; BP diastolic 62–74; PULSE 61–93; RESP 15–34; TEMP 36.2–36.9; O2SAT 86–98
[2020-12-11 00:20] LABS: Troponin 5 2HR 11.26 ng/L (0-15)
[2020-12-11 00:23] LABS: Troponin 5 2HR Delta -1.74 ABS# (0-10)
[2020-12-11 00:51] LABS: Troponin 5 6HR 11.19 ng/L (0-15)
[2020-12-11 00:52] LABS: Troponin 5 6HR Delta -1.81 ng/L (0-12)
--- NOTE | 2020-12-11 01:15 | ECG_ITS ---
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 Measurements Intervals Forbes Rate: 66 P: 51 UT: 191 QRS: -43 QRSD: 132 T: 8 QT: 474 QTc: 499 Interpretive Statements SINUS RHYTHM WITH SINUS ARRHYTHMIA MARKED LEFT AXIS DEVIATION [QRS AXIS < -30] INTRAVENTRICULAR CONDUCTION DELAY [130+ ms QRS DURATION] MODERATE VOLTAGE CRITERIA FOR LVH, CONSIDER NORMAL VARIANT [MEETS CRITERIA IN ONE OF: R(aVL), S(V1), R(V5), R(V5/V6)+S(V1)] POSSIBLE ANTERIOR MYOCARDIAL INFARCTION [30 ms Q WAVE IN V3/V4, OR R < 0.2 mV IN V4], OF INDETERMINATE AGE Compared to ECG 12/10/2020 21:11:55 No significant changes Electronically Signed On 12-14-2020 12:42:01 CDT by Deborah Carver M.D. [id number]
--- NOTE | 2020-12-11 05:10 | PM.HP ---
Providers/Chief Complaint Admitting Physician: Kellie Cardozo MD Primary Care Provider: JESSICA KhanP-C Chief Complaint: COVID +; SOB History of Present Illness Percy Coronado is a 70 year old male with PMH as below diagnosed with COVID-19 on 12/07/20, and given the monoclonal antibody infusion on . He presented today worsening weakness, increased shortness of breath, multiple episodes of diarrhea , 02 sats in early 80s and required 12lpm NRB mask supplemental 02. Review of Systems General: Reports: 10 or more systems reviewed and unremarkable except in HPI and below Const: Denies: fever(s), chills or body aches Eyes: Denies: change in vision, blurry vision or photophobia ENMT: Reports: hoarseness; Denies: throat pain, enlarged tonsils, odynophagia or nasal congestion Card: Denies: chest pain, palpitations, irregular heart rhythm, edema, swelling of feet/ankles, lightheadedness, pre-syncope, dyspnea on exertion or orthopnea Resp: Denies: dyspnea, productive cough, non-productive cough, wheezing, stridor, pain on inspiration, change in phlegm color, hemoptysis or chest congestion GI: Denies: abdominal pain, nausea, vomiting, hematemesis, coffee ground emesis, dysphagia, heartburn, diarrhea, constipation, GI cramping, change in stool character, hematochezia or melena : Denies: flank pain, dysuria, urinary frequency, urinary urgency, urinary hesitancy or hematuria Musc: Denies: neck pain, back pain, extremity pain, joint swelling, joint warmth or deformity Neuro: Denies: headache(s), numbness in extremities, weakness in extremities, sensory changes, difficulty walking, frequent falls, dizziness, vertigo, behavioral changes, Slurred speech present or seizure-like activity Psych: Denies: anxiety, depression, suicidal ideation or homicidal ideation Endo: Denies: polyuria, polydipsia, tired all the time, cold intolerance or hot flashes Ruben/Lymph: Denies: easy bruising or easy bleeding Medications/Allergies Home Medications Medication Instructions Recorded Confirmed Last Taken Type blood sugar diagnostic #10 each 06/24/19 11/29/20 Unknown History nystatin 100,000 unit/gram topical 1 applic TOPICAL BID #30 g 06/12/20 11/29/20 11/29/20 Rx ointment apixaban 5 mg tablet 5 mg PO Q12H #60 tab 09/11/20 11/29/20 11/29/20 Rx cholecalciferol (vitamin D3) 125 125 mcg PO DAILY #30 cap 09/11/20 11/29/20 11/29/20 Rx mcg (5,000 unit) capsule famotidine 20 mg tablet 20 mg PO BID #60 tab 09/11/20 11/29/20 11/29/20 Rx finasteride 5 mg tablet 5 mg PO DAILY #30 tab 09/11/20 11/29/20 11/28/20 Rx insulin degludec 100 unit/mL (3 75 unit SUBCUT DAILY #24 ml 09/11/20 11/29/20 11/29/20 Rx mL) subcutaneous pen liraglutide 0.6 mg/0.1 mL (18 mg/3 1.8 mg SUBCUT DAILY #9 ml 09/11/20 11/29/20 11/29/20 Rx mL) subcutaneous pen injector losartan 100 mg tablet 100 mg PO DAILY #30 tab 09/11/20 11/29/20 11/29/20 Rx sertraline 100 mg tablet 100 mg PO DAILY #30 tab 09/11/20 11/29/20 11/29/20 Rx pen needle, diabetic 33 gauge x #100 ea 11/20/20 11/29/20 Unknown Rx 5/32 gabapentin 600 mg PO BEDTIME 11/29/20 11/29/20 11/28/20 History hydroxyzine pamoate 25 mg PO BEDTIME 11/29/20 11/29/20 11/28/20 History levocetirizine 5 mg PO DAILY PRN 11/29/20 11/29/20 Unknown History rosuvastatin 40 mg PO BEDTIME 11/29/20 11/29/20 11/28/20 History tamsulosin 0.4 mg PO BEDTIME 11/29/20 11/29/20 11/28/20 History Allergies Allergy/AdvReac Type Severity Reaction Status Date / Time procaine [From Novocain] Allergy parenteral Verified 11/29/20 17:52 PFSH Acute PFSH: Medical History (Updated 12/11/20 @ 05:30 by Kellie Cardozo MD) Anxiety and depression BPH loc w urin obs/LUTS Chronic kidney disease (CKD) stage 3 Chronic painful diabetic neuropathy Controlled diabetes mellitus with hyperglycemia, with long-term current use of insulin Distended bladder Enlarged prostate Environmental and seasonal allergies Gastric reflux History of deep venous thrombosis (DVT) of distal vein of left lower extremity HTN (hypertension) Incomplete bladder emptying Mixed dyslipidemia Osteoarthritis of knee, unspecified Right Overflow incontinence Urinary retention Vitamin D deficiency, unspecified Surgical History History of partial surgical removal of colon (~11/2014) For colon cancer Hx of colonoscopy 2014 Family History Mother Cancer Lung Father Nicotine addiction Other Hypertension Social History Second hand smoke exposure: No Smoking risk assessment/counseling performed?: No Alcohol intake: former Desire information about alcohol rehabilitation?: No Counseling given: No Desire information about substance/drug rehabilitation?: No Counseling given: No Adopted: No Caregiver/support person: No Lives independently: Yes Household members: none Housing: House Marital status: / service: No Current occupational status: retired History of recent travel: No Current gender identity: Male Vitals/I&O/Wt Last Vital Signs Temp 97.1 F L 12/11/20 04:00 Pulse 73 12/11/20 04:00 Resp 22 H 12/11/20 04:00 BP 116/66 12/11/20 04:00 Pulse Ox 92 12/11/20 04:00 12/10/20 12/10/20 12/11/20 14:59 22:59 06:59 Intake Total 100 / 100 Balance 100 / 100 Weight last 48 hrs Weight 90.718 kg Physical Exam Narrative: EXAM NARRATIVE: General: No acute distress, AO x3 HEENT: PERRLA, pupils bilaterally equal and reactive, pallors not present Chest: Scattered B/L crackles all lung rendon CVS: S1-S2 regular, no murmurs, no tachycardia, no gallops, no rubs Abdomen: Soft, nontender, no organomegaly, bowel sounds present Neuro: No focal deficits, no facial deformity, AO x3, power 5/5 in all limbs Data : 12/10/20 19:50 12/10/20 19:50 Other Labs: Laboratory Results WBC 8.5 10^3/uL (4.0-10.0) 12/10/20 19:50 RBC 4.77 10^6/uL (4.1-5.3) 12/10/20 19:50 Hgb 13.3 g/dL (11.7-16.6) 12/10/20 19:50 Hct 39.6 % (42.0-52.0) L 12/10/20 19:50 MCV 83.0 fL (80-94) 12/10/20 19:50 MCH 27.9 pg (28.0-34.0) L 12/10/20 19:50 MCHC 33.6 g/dL (30.0-36.0) 12/10/20 19:50 RDW 13.6 % (12.1-15.1) 12/10/20 19:50 Plt Count 300 10^3/cmm (130-400) 12/10/20 19:50 MPV 10.0 fL (7.4-10.4) 12/10/20 19:50 Neut % (Auto) 88.6 % 12/10/20 19:50 Lymph % (Auto) 6.9 % 12/10/20 19:50 Tompkins % (Auto) 4.0 % 12/10/20 19:50 Eos % (Auto) 0.1 % 12/10/20 19:50 Baso % (Auto) 0.0 % 12/10/20 19:50 Neut # (Auto) 7.54 10^3/uL (1.8-7.7) 12/10/20 19:50 Lymph # (Auto) 0.6 10^3/uL (0.8-4.8) L 12/10/20 19:50 Tompkins # (Auto) 0.3 10^3/uL (0.2-0.9) 12/10/20 19:50 Eos # (Auto) 0.0 10^3/uL (0.0-0.8) 12/10/20 19:50 Baso # (Auto) 0.0 10^3/uL (0.0-0.1) 12/10/20 19:50 Nucleated RBC % (auto) 0 % 12/10/20 19:50 Nucleated RBCs # 0.0 /100WBC 12/10/20 19:50 PT 14.20 SECONDS (12.1-14.9) 12/10/20 19:50 INR 1.07 (0.8-1.2) 12/10/20 19:50 APTT 30.0 SECONDS (23.9-36.7) 12/10/20 19:50 D-Dimer 3.99 ug/mIFEU (0-0.59) H 12/10/20 19:50 Specimen Type Arterial 12/10/20 19:39 Sample Site Brachial, left 12/10/20 19:39 ABG pH 7.49 (7.35-7.45) H 12/10/20 19:39 ABG pCO2 28.7 mmHg (35-45) L 12/10/20 19:39 ABG pO2 44.4 mmHg (80.0-100.0) L 12/10/20 19:39 ABG HCO3 21.8 mmol/L (22-26) L 12/10/20 19:39 ABG Base Excess -0.5 mmol/L (-2.0-2.0) 12/10/20 19:39 Lg Test Pos 12/10/20 19:39 Hematocrit 40.7 % (42-52) L 12/10/20 19:39 O2 Delivery Device Nc 12/10/20 19:39 O2 Liters/Min 5.0 % 12/10/20 19:39 Auto Body Mechanic Apprentice ID Cak 12/10/20 19:39 Sodium 135 mmol/L (136-145) L 12/10/20 19:50 Potassium 5.4 mmol/L (3.5-5.1) H 12/10/20 19:50 Chloride 97 mmol/L (98-107) L 12/10/20 19:50 Carbon Dioxide 27 mmol/L (22-29) 12/10/20 19:50 Anion Gap 16.4 (5-19) 12/10/20 19:50 BUN 41 mg/dL (8-23) H 12/10/20 19:50 Creatinine 2.9 mg/dL (0.7-1.2) H 12/10/20 19:50 GFR Calculation Not Reportable 12/10/20 19:50 Glucose 125 mg/dL (65-115) H 12/10/20 19:50 Calculated Osmolality 292 mOsm/kg (285-295) 12/10/20 19:50 Lactic Acid 1.0 mmol/L (0.5-2.2) 12/10/20 19:50 Calcium 9.0 mg/dL (8.5-10.5) 12/10/20 19:50 Magnesium 3.1 mg/dL (1.7-2.3) H 12/10/20 19:50 Total Bilirubin 0.3 mg/dL (0.15-1.2) 12/10/20 19:50 AST 13 U/L (0-40) 12/10/20 19:50 ALT < 5 U/L (0-41) 12/10/20 19:50 Alkaline Phosphatase 51 IU/L (40-130) 12/10/20 19:50 Troponin T Baseline 13 ng/L (0-15) 12/10/20 19:50 Troponin T 120 Minute 11.26 ng/L (0-15) 12/10/20 23:22 Delta Troponin T -1.74 ABS# (0-10) L 12/10/20 23:22 Troponin T Hi Sens 6Hr 11.19 ng/L (0-15) 12/11/20 00:15 Troponin T Hi Sens 6Hr Delta -1.81 ng/L (0-12) L 12/11/20 00:15 C-Reactive Protein 2.9 mg/L (0.0-4.9) 12/10/20 19:50 NT-Pro-B Natriuret Pep 46935 pg/mL (0-125) H 12/10/20 19:50 Total Protein 6.1 g/dL (6.6-8.7) L 12/10/20 19:50 Albumin 3.4 g/dL (3.5-5.2) L 12/10/20 19:50 Globulin 2.7 g/dL (1.3-4.6) 12/10/20 19:50 Procalcitonin 0.15 ng/mL (0-0.5) 12/10/20 19:50 Impressions Chest X-Ray 12/10/20 19:11 IMPRESSION: 1. Chronic interstitial scarring in both lungs. No definite acute finding. Micro: Microbiology 12/10/20 19:50 Blood Culture - Preliminary Blood SPECIMEN COLLECTED A&P Assessment and plan (1) Respiratory failure: Status: Acute Qualifiers: Chronicity: acute Respiratory failure complication: hypoxia Qualified Code(s): J96.01 - Acute respiratory failure with hypoxia (2) COVID-19: Remdisivir 200mg iv x 1 followed by 100mg iv daily dexamethasone 6mg IVP daily duoneb q6h, budesonide q12h empiric CTX and azithromycin Flutter valve/spirometer at bedside trend inflammatory markers including CRP, LDH, D dimer, Ferritin CTA PE to evalaute for PE given elevated D dimer cannot be perfromed given SHUKRI with CKD 2.9. Patient is on eliquis as outpatient for a prior history of DVT, possibility remains low CXR today with official read of chronic interstitial scarring, however appearing to be new compared to recent CXR Status: Acute (3) Chronic kidney disease (CKD): Status: Acute Qualifiers: Chronic kidney disease stage: stage 3 (moderate) Chronic kidney disease stage 3 subtype: stage 3a (GFR 45-59) Qualified Code(s): N18.31 - Chronic kidney disease, stage 3a (4) History of deep venous thrombosis (DVT) of distal vein of left lower extremity: Status: Chronic (5) Mixed dyslipidemia: Status: Chronic (6) Chronic painful diabetic neuropathy: Status: Chronic (7) HTN (hypertension): Status: Chronic Qualifiers: Hypertension type: essential hypertension Qualified Code(s): I10 - Essential (primary) hypertension (8) Acute kidney injury superimposed on CKD: Obrien catheter to assess for retention No clinical signs of fluid overload at this time renal imaging Hyperkalemia at 5.4, monitor with am labs UA, urine lytes Status: Acute Additional A&P Information Recent UTI: E.coli on CX, ceftriaxone to cover check UA DVT ppx: Eliquis 5mg BID continued from home meds Full code Attestations Medical Necessity Statement*: Inpatient admission anticipate >2 days for above defined care Coding Level of Care Code Acute Optical Mechanic Apprentice for Chg Fwd Diagnoses Respiratory failure J96.01 Chronicity: acute Respiratory failure complication: hypoxia COVID-19 U07.1 Chronic kidney disease (CKD) N18.31 Chronic kidney disease stage: stage 3 (moderate) Chronic kidney disease stage 3 subtype: stage 3a (GFR 45-59) History of deep venous thrombosis (DVT) of distal vein of left lower extremity Z86.718 Mixed dyslipidemia E78.2 Chronic painful diabetic neuropathy E11.40 HTN (hypertension) I10 Hypertension type: essential hypertension Acute kidney injury superimposed on CKD N17.9; N18.9
--- NOTE | 2020-12-11 05:19 | US_ITS ---
WS: [id number] ULTRASOUND RENAL TECHNIQUE: Ultrasound examination of both kidneys. CLINICAL INFORMATION: evalute for hydronephrosis COMPARISON: None. FINDINGS: RIGHT: Right kidney: Slightly prominent right renal pelvis. No hydronephrosis. Mild right renal cortical at rophy Echogenicity: Normal. Cortical thickness: 0.9 cm; mild atrophy Hydronephrosis: None. Perinephric fluid: None. Right kidney measures: 12.0 cm x 4.9 cm x 5.0 cm. LEFT: Left kidney is normal in size and appearance. Echogenicity: Normal. Cortical thickness: 1.5 cm; Normal. Hydronephrosis: None. Perinephric fluid: None. Left kidney measures: 11.7 cm x 6.1 cm x 4.7 cm. Normal visualized aorta. Obrien Catheter. US/US renal BI* [id number] IMPRESSION: 1. Prominent right renal pelvis. No hydronephrosis.. Right renal cortical atro phy. 2. Normal left kidney. No hydronephrosis. 3. Obrien catheter.
[2020-12-11] MEDS: dexamethasone 4 mg/mL INJ 6 MG IVP (05:48)
[2020-12-11] MEDS: cefTRIAXone 1,000 MG in sodium chloride 0.9% (plus) 50 ML 100 MG IV (05:52)
[2020-12-11 06:23] LABS: Add Urine Microscopic? NO; Charge for UA Resulting for Rev
[2020-12-11] MEDS: azithromycin 500 MG in sodium chloride 0.9% 250 ML 250 MG IV (06:28)
[2020-12-11] MEDS: FUROsemide 10 mg/mL SDV 2mL 20 MG IVP (06:53)
[2020-12-11 07:20] LABS: Bilirubin Urine Neg (Negative); Blood Urine Neg (Negative); Glucose Urine UA 4+ (Normal); Ketones Urine Negative (Negative); Leukocyte Esterase Urine Negative (Negative); Nitrate Urine Negative (Negative); Protein Urine Neg (Negative); Specific Gravity, Urine 1.015 (1.005-1.030); Urine Appearance Clear (CLEAR); Urine Color Yellow (Yellow); Urobilinogen Urine Norm (Negative); pH Urine 5 (5-7)
[2020-12-11 07:25] LABS: Potassium, Radom Urine 31 mmol/L; Urine Random Sodium 26 mmol/L
[2020-12-11 07:27] LABS: Urine Random Chloride 13 mmol/L
[2020-12-11 07:48] LABS: Creatine Phosphokinase 76 U/L (39-308)
[2020-12-11 08:37] LABS: Basophils % 0.1 %; Hematocrit 39.1 % (42.0-52.0); Hemoglobin 12.9 g/dL (11.7-16.6); Lymphocytes # 0.3 10^3/uL (0.8-4.8); Lymphocytes % 3.6 %; Mean Corpuscular Hemoglobin 27.6 pg (28.0-34.0); Mean Corpuscular Volume 83.7 fL (80-94); Mean Platelet Volume 9.4 fL (7.4-10.4); Monocytes # 0.1 10^3/uL (0.2-0.9); Neutrophils # 6.51 10^3/uL (1.8-7.7); Neutrophils % 93.7 %; Nucleated Red Blood Cells % 0 %; Platelet Count 264 10^3/cmm (130-400); Red Blood Count 4.67 10^6/uL (4.1-5.3); Red Cell Distribution Width 13.8 % (12.1-15.1)
[2020-12-11 09:01] LABS: Alanine Aminotransferase 146 U/L (0-41); Alkaline Phosphatase 116 IU/L (40-130); Anion Gap 17.1 (5-19); Aspartate Amino Transferase 123 U/L (0-40); Blood Urea Nitrogen 23 mg/dL (8-23); Calcium 7.8 mg/dL (8.5-10.5); Carbon Dioxide 20 mmol/L (22-29); Chloride 94 mmol/L (98-107); Globulin 3.2 g/dL (1.3-4.6); Glucose 308 mg/dL (65-115); Osmolality Calculated 279 mOsm/kg (285-295); Potassium 4.1 mmol/L (3.5-5.1); Sodium 127 mmol/L (136-145); Total Bilirubin 0.6 mg/dL (0.15-1.2); Total Protein 6.2 g/dL (6.6-8.7)
[2020-12-11] MEDS: finasteride 5 mg Tablet PO (09:25)
[2020-12-11] MEDS: apixaban 5 mg Tablet PO ×2 (09:25→21:43)
[2020-12-11] MEDS: sertraline 100 mg Tablet PO (09:25)
[2020-12-11 09:29] LABS: Glucose Point of Care 303 mg/dL (70-110)
[2020-12-11] MEDS: ondansetron 2 mg/ML SDV 2 mL 4 MG IVP (10:11)
[2020-12-11 12:28] LABS: Glucose Point of Care 361 mg/dL (70-110)
--- NOTE | 2020-12-11 13:03 | P.PN_ITS ---
Subjective Subjective: Interval history: Patient was seen and examined this morning, continues to complain of worsening shortness of breath. Patient is very hard of hearing. Continue to have remained afebrile. Continue to require high supplemental oxygen. His other vitals and labs have been reviewed. Medications: Reviewed: Yes Vitals/I&O/Wt Last Vital Signs Temp 98.4 F 12/11/20 08:00 Pulse 76 12/11/20 10:11 Resp 24 H 12/11/20 10:11 BP 134/74 12/11/20 08:00 Pulse Ox 91 12/11/20 10:11 12/10/20 12/11/20 12/11/20 22:59 06:59 14:59 Intake Total 150 / 150 650 / 650 Output Total 2300 / 2300 Balance 150 / 150 -1650 / -1650 Weight last 48 hrs Weight 90.718 kg Physical Exam Const: COMMON NORMALS: patient oriented x3 HENMT: COMMON NORMALS: normocephalic and atraumatic HEAD & SCALP: normocephalic and atraumatic Resp: OTHER: Bilateral crackles in both lung rendon Cardio: COMMON NORMALS: regular rate, regular rhythm, S1 normal heart sound present, S2 normal heart sound present, No gallops present (Cardio), No murmurs present (Cardio), No rub (Cardio) and Peripheral pulses 2+ throughout RATE: regular rate RHYTHM: regular rhythm HEART SOUNDS: S1 normal heart sound present and S2 normal heart sound present PERIPHERAL PULSES: Peripheral pulses 2+ throughout GI: COMMON NORMALS: Normal to inspection, nondistended, normoactive bowel s ounds present, Soft to palpation, non-tender, No hepatosplenomegaly present and no masses AUSCULTATION: Yes normoactive bowel sounds PALPATION: Yes Soft to palpation and Yes No hepatosplenomegaly present RECTAL EXAM: Yes deferred Extremity: COMMON NORMALS: no clubbing, cyanosis or edema and no pedal edema Neuro: COMMON NORMALS: patient oriented x3 Urinary Catheter Management^: Obrien: Cath Placed During This Visit: yes Urinary Catheter Date of Insertion: 12/11/20 Urinary Catheter Time of Insertion: 06:05 Data : 12/11/20 08:22 12/11/20 08:22 Micro: Microbiology 12/10/20 19:50 Blood Culture - Preliminary Blood SPECIMEN COLLECTED A&P Assessment and plan (1) COVID-19: Remdisivir 200mg iv x 1 followed by 100mg iv daily dexamethasone 6mg IVP daily duoneb q6h, budesonide q12h empiric CTX and azithromycin Flutter valve/spirometer at bedside trend inflammatory markers including CRP, LDH, D dimer, Ferritin CTA PE to evalaute for PE given elevated D dimer cannot be perfromed given SHUKRI with CKD 2.9. Patient is on eliquis as outpatient for a prior history of DVT, possibility remains low CXR today with official read of chronic interstitial scarring, however appearing to be new compared to recent CXR Status: Acute (2) Respiratory failure: Status: Acute Qualifiers: Chronicity: acute Respiratory failure complication: hypoxia Qualified Code(s): J96.01 - Acute respiratory failure with hypoxia (3) Decompensated heart failure: Decompensated heart failure: 2D echo intake output charting Daily weight K>4, MG >2 Lasix 40 mg IV twice daily Status: Acute (4) Acute kidney injury superimposed on CKD: SHUKRI on CKD stage III: Likely secondary to cardiorenal syndrome secondary to decompensated heart failure: Admission serum creatinine 2.9 monitor BMP intake output charting renal ultrasound: Prominent right renal pelvis. No hydronephrosis.. Right renal cortical atrophy. Normal left kidney. No hydronephrosis. Status: Acute (5) History of deep venous thrombosis (DVT) of distal vein of left lower extremity: On Eliquis. Status: Chronic (6) Mixed dyslipidemia: Status: Chronic (7) Chronic painful diabetic neuropathy: Status: Chronic (8) HTN (hypertension): Status: Chronic Qualifiers: Hypertension type: essential hypertension Qualified Code(s): I10 - Essential (primary) hypertension Additional A&P Information Recent UTI: E.coli on CX, ceftriaxone to cover check UA DVT ppx: Eliquis 5mg BID continued from home meds Full code Attestations Medical Necessity Statement*: Patient needs to be in the hospital for management of respiratory failure secondary to Covid pneumonia. Coding Level of Care Code Acute Horticulture Teacher for Chg Fwd Diagnoses COVID-19 U07.1 Respiratory failure J96.01 Chronicity: acute Respiratory failure complication: hypoxia Decompensated heart failure I50.9 Acute kidney injury superimposed on CKD N17.9; N18.9 History of deep venous thrombosis (DVT) of distal vein of left lower extremity Z86.718 Mixed dyslipidemia E78.2 Chronic painful diabetic neuropathy E11.40 HTN (hypertension) I10 Hypertension type: essential hypertension
[2020-12-11] MEDS: ipratropium-albuterol 3 mL Neb INHALATION ×2 (14:09→20:22)
[2020-12-11] MEDS: FUROsemide 10 mg/mL SDV 4mL 40 MG IVP (14:20)
[2020-12-11] MEDS: remdesivir 100 MG in sodium chloride 0.9% (100 ml) 100 ML IV (18:31)
[2020-12-11] MEDS: budesonide 0.5 mg/2 mL Neb INHALATION (20:22)
[2020-12-11] MEDS: tamsulosin 0.4 mg Capsule PO (21:43)
[2020-12-11] MEDS: gabapentin 300 mg Capsule 600 MG PO (21:43)
[2020-12-11] MEDS: atorvastatin 40 mg Tablet 80 MG PO (21:43)
[2020-12-11 21:48] LABS: Glucose Point of Care 351 mg/dL (70-110)
[2020-12-12] VITALS (32 sets, daily range): BP systolic 101–133; BP diastolic 62–77; PULSE 68–101; RESP 17–30; TEMP 36.3–37.1; O2SAT 83–98
[2020-12-12] MEDS: FUROsemide 10 mg/mL SDV 4mL 40 MG IVP (02:21)
[2020-12-12] MEDS: ipratropium-albuterol 3 mL Neb INHALATION ×3 (03:14→21:12)
[2020-12-12] MEDS: cefTRIAXone 1,000 MG in sodium chloride 0.9% (plus) 50 ML 100 MG IV (05:09)
[2020-12-12] MEDS: dexamethasone 4 mg/mL INJ 6 MG IVP (05:41)
[2020-12-12] MEDS: azithromycin 500 MG in sodium chloride 0.9% 250 ML 250 MG IV (05:45)
[2020-12-12 08:00] LABS: Glucose Point of Care 259 mg/dL (70-110)
[2020-12-12 08:00] LABS: Glucose Point of Care 317 mg/dL (70-110)
--- NOTE | 2020-12-12 08:18 | PC.PHAR ---
pt states he takes care of his own medications-pt states he finished the doxycycline hyclate 100mg bid for 7 days filled on 11/30/20 and dexamethasone 6mg daily filled on 12/05/20 6d/s
[2020-12-12 08:21] LABS: Basophils % 0.1 %; Eosinophils % 0.2 %; Hematocrit 44.8 % (42.0-52.0); Hemoglobin 14.4 g/dL (11.7-16.6); Lymphocytes # 0.3 10^3/uL (0.8-4.8); Mean Corpuscular HGB Conc 32.1 g/dL (30.0-36.0); Mean Corpuscular Volume 83.9 fL (80-94); Mean Platelet Volume 9.9 fL (7.4-10.4); Monocytes # 0.3 10^3/uL (0.2-0.9); Neutrophils # 10.33 10^3/uL (1.8-7.7); Nucleated Red Blood Cells % 0 %; Platelet Count 351 10^3/cmm (130-400); Red Blood Count 5.34 10^6/uL (4.1-5.3); Red Cell Distribution Width 13.5 % (12.1-15.1); White Blood Count 11.1 10^3/uL (4.0-10.0)
[2020-12-12 08:24] LABS: D Dimer 3.16 ug/mIFEU (0-0.59)
[2020-12-12] MEDS: sertraline 100 mg Tablet PO (08:33)
[2020-12-12] MEDS: apixaban 5 mg Tablet PO ×2 (08:33→21:59)
[2020-12-12] MEDS: finasteride 5 mg Tablet PO (08:33)
[2020-12-12 08:42] LABS: Lactate Dehydrogenase 294 U/L (135-225)
[2020-12-12 08:43] LABS: Alanine Aminotransferase 125 U/L (0-41); Albumin Level 3.1 g/dL (3.5-5.2); Alkaline Phosphatase 120 IU/L (40-130); Anion Gap 18.4 (5-19); Aspartate Amino Transferase 66 U/L (0-40); Blood Urea Nitrogen 27 mg/dL (8-23); Calcium 8.2 mg/dL (8.5-10.5); Carbon Dioxide 24 mmol/L (22-29); Chloride 92 mmol/L (98-107); Globulin 3.5 g/dL (1.3-4.6); Glucose 279 mg/dL (65-115); Magnesium 2.4 mg/dL (1.7-2.3); Osmolality Calculated 287 mOsm/kg (285-295); Potassium 3.4 mmol/L (3.5-5.1); Sodium 131 mmol/L (136-145); Total Bilirubin 0.6 mg/dL (0.15-1.2); Total Protein 6.6 g/dL (6.6-8.7)
[2020-12-12 08:47] LABS: Procalcitonin 0.26 ng/mL (0-0.5)
[2020-12-12 08:57] LABS: Ferritin 1113 ng/mL (30-400)
--- NOTE | 2020-12-12 09:04 | USCV_ITS ---
Percy Coronado Age: 70 Gender: M : 1950 Exam Date: 12/12/2020 13:41 Ordering Phys: Ranulfo Rojas MD Technologist: Exam Location: [facility] – [place] Indication: Shortness of breath BP: 101 / 63 HR: 71 Rhythm: Sinus Technical Quality: Adequate MEASUREMENTS (Male / Female) Normal Values 2D ECHO LV Diastolic Diameter PLAX 3.8 cm 4.2 - 5.9 / 3.9 - 5.3 cm LV Systolic Diameter PLAX 2.0 cm IVS Diastolic Thickness 1.1 cm 0.6 - 1.0 / 0.6 - 0.9 cm IVS Systolic Thickness 1.3 cm LVPW Diastolic Thickness 1.0 cm 0.6 - 1.0 / 0.6 - 0.9 cm LVPW Systolic Thickness 1.4 cm LVOT Diameter 2.4 cm LV Ejection Fraction 2D Teich 80.0 % LV Ejection Fraction MOD 2C 63.4 % LV Ejection Fraction 2C AL 64.2 % LA Diameter 4.0 cm Aorta at Sinotubular Diameter 3.0 cm DOPPLER AV Peak Velocity 125.0 cm/s LVOT Peak Velocity 99.0 cm/s AV Area Cont Eq vti 5.0 cm squared AV Area Cont Eq pk 3.7 cm squared MV Area PHT 5.0 cm squared Mitral E to A Ratio 0.7 MV E' Velocity 34.5 cm/s Mitral E to MV E' Ratio 13.4 Mitral E to LV E' Lateral Ratio 12.6 Mitral E to LV E' Septal Ratio 14.3 TR Peak Velocity 145.0 cm/s TR Peak Gradient 8.4 mmHg TV Peak E Velocity 108.0 cm/s Right Atrial Pressure 3.0 mmHg Pulmonary Artery Systolic Pressu 11.4 mmHg PV Peak Velocity 97.0 cm/s FINDINGS Left Ventricle Normal left ventricular cavity size. Normal left ventricular systolic function. Left ventricular ejection fraction is estimated at 65 %. Grade I diastolic dysfunction (abnormal relaxation filling pattern), normal to mildly elevated filling pressures. Abnormal septal motion consistent with conduction abnormality. Right Ventricle Normal right ventricular size and systolic function. Right ventricular systolic pressure 11.4 mmHg. Right Atrium Right atrium not well visualized. Left Atrium Probably normal left atrial size. Mitral Valve Mildly thickened mitral valve. No mitral valve stenosis. No significant mitral valve regurgitation. Aortic Valve Mildly thickened trileaflet aortic valve. No aortic valve stenosis. Tricuspid Valve Tricuspid valve not well visualized. Pulmonic Valve Pulmonic valve not well visualized. No pulmonary valve stenosis. No pulmonary valve regurgitation. Pericardium No pericardial effusion. Aorta Normal size aortic root and proximal ascending aorta. CONCLUSIONS 1. Normal left ventricular cavity size. Normal left ventricular systolic function. Left ventricular ejection fraction is estimated at 65 %. Grade I diastolic dysfunction (abnormal relaxation filling pattern), normal to mildly elevated filling pressures. 2. Normal right ventricular size and systolic function. 3. No significant valvular abnormality based on the study. 4. Normal pulmonary artery pressure. 5. No prior similar studies. Deborah Carver MD (Electronically Signed) Final Date: 12 December 2020 18:16 S
[2020-12-12] MEDS: budesonide 0.5 mg/2 mL Neb INHALATION ×2 (10:37→21:12)
[2020-12-12] MEDS: lidocaine 1% 5 ML in potassium chloride premix 100 ML 25 ML IV (10:45)
[2020-12-12 13:47] LABS: Glucose Point of Care 450 mg/dL (70-110)
[2020-12-12] MEDS: ondansetron 2 mg/ML SDV 2 mL 4 MG IVP (13:55)
[2020-12-12 17:30] LABS: Glucose Point of Care 255 mg/dL (70-110)
[2020-12-12] MEDS: remdesivir 100 MG in sodium chloride 0.9% (100 ml) 100 ML IV (18:16)
--- NOTE | 2020-12-12 20:20 | PM.PN ---
Subjective Subjective: Interval history: Patient was seen and examined this morning, was seen sitting in the chair. states that he is feeling better as compared to yesterday, shortness of breath is slightly improved, he continues to require high supplemental oxygen, robust urine output with Lasix. Other vitals and labs have been reviewed. Medications: Reviewed: Yes Vitals/I&O/Wt Last Vital Signs Temp 97.4 F L 12/12/20 20:00 Pulse 77 12/12/20 20:00 Resp 30 H 12/12/20 20:00 BP 120/66 12/12/20 20:00 Pulse Ox 85 L 12/12/20 20:00 12/12/20 12/12/20 12/12/20 06:59 14:59 22:59 Intake Total 50 / 1280 250 / 250 205 / 455 Output Total 1850 / 7000 1300 / 1300 Balance -1800 / -5720 250 / 250 -1095 / -845 Physical Exam Const: COMMON NORMALS: patient oriented x3 HENMT: COMMON NORMALS: normocephalic and atraumatic HEAD & SCALP: normocephalic and atraumatic Resp: OTHER: Bilateral crackles in both lung rendon Cardio: COMMON NORMALS: regular rate, regular rhythm, S1 normal heart sound present, S2 normal heart sound present, No gallops present (Cardio), No murmurs present (Cardio), No rub (Cardio) and Peripheral pulses 2+ throughout RATE: regular rate RHYTHM: regular rhythm HEART SOUNDS: S1 normal heart sound present and S2 normal heart sound present PERIPHERAL PULSES: Peripheral pulses 2+ throughout GI: COMMON NORMALS: Normal to inspection, nondistended, normoactive bowel sounds present, Soft to palpation, non-tender, No hepatosplenomegaly present and no masses AUSCULTATION: Yes normoactive bowel sounds PALPATION: Yes Soft to palpation and Yes No hepatosplenomegaly present RECTAL EXAM: Yes deferred Extremity: COMMON NORMALS: no clubbing, cyanosis or edema and no pedal edema Neuro: COMMON NORMALS: patient oriented x3 Urinary Catheter Management^: Obrien: Cath Placed During This Visit: yes Reason for Continuing Indwelling Catheter: Accurate Measurement of Urinary Output in Critically Ill Patients Urinary Catheter Date of Insertion: 12/11/20 Urinary Catheter Time of Insertion: 06:05 Data : 12/12/20 07:25 12/12/20 07:25 Micro: Microbiology 08/01/21 19:30 Blood Culture - Preliminary Blood 12/10/20 19:50 Blood Culture - Preliminary Blood NEGATIVE TO DATE A&P Assessment and plan (1) COVID-19: Remdisivir 200mg iv x 1 followed by 100mg iv daily dexamethasone 6mg IVP daily duoneb q6h, budesonide q12h empiric CTX and azithromycin Blood cultures: Negative Flutter valve/spirometer at bedside trend inflammatory markers including CRP, LDH, D dimer, Ferritin CTA PE to evalaute for PE given elevated D dimer cannot be perfromed given SHUKRI with CKD 2.9. Patient is on eliquis as outpatient for a prior history of DVT, possibility remains low CXR today with official read of chronic interstitial scarring, however appearing to be new compared to recent CXR. Status: Acute (2) Respiratory failure: Status: Acute Qualifiers: Chronicity: acute Respiratory failure complication: hypoxia Qualified Code(s): J96.01 - Acute respiratory failure with hypoxia (3) Decompensated heart failure: Decompensated heart failure with preserved ejection fraction: 2D echo: Normal left ventricular cavity size. Normal left ventricular systolic function. Left ventricular ejection fraction is estimated at 65 %. Grade I diastolic dysfunction (abnormal relaxation filling pattern), normal to mildly elevated filling pressures. Normal right ventricular size and systolic function. No significant valvular abnormality based on the study. Normal pulmonary artery pressure. intake output charting Daily weight K>4, MG >2 Lasix 40 mg IV daily Status: Acute (4) Acute kidney injury superimposed on CKD: SHUKRI on CKD stage III: Likely secondary to cardiorenal syndrome secondary to decompensated heart failure: Resolved Admission serum creatinine 2.9. Current serum creatinine at baseline. monitor BMP intake output charting renal ultrasound: Prominent right renal pelvis. No hydronephrosis.. Right renal cortical atrophy. Normal left kidney. No hydronephrosis. Status: Acute (5) History of deep venous thrombosis (DVT) of distal vein of left lower extremity: On Eliquis. Status: Chronic (6) Mixed dyslipidemia: Status: Chronic (7) Chronic painful diabetic neuropathy: Status: Chronic (8) HTN (hypertension): Status: Chronic Qualifiers: Hypertension type: essential hypertension Qualified Code(s): I10 - Essential (primary) hypertension Additional A&P Information Recent UTI: E.coli on CX, ceftriaxone to cover check UA DVT ppx: Eliquis 5mg BID continued from home meds Full code Attestations Medical Necessity Statement*: Needs to be in hospital for management of respiratory failure secondary to Covid pneumonia. Coding Level of Care Code Acute Computer Systems Technology Instructor for Chg Fwd Diagnoses COVID-19 U07.1 Respiratory failure J96.01 Chronicity: acute Respiratory failure complication: hypoxia Decompensated heart failure I50.9 Acute kidney injury superimposed on CKD N17.9; N18.9 History of deep venous thrombosis (DVT) of distal vein of left lower extremity Z86.718 Mixed dyslipidemia E78.2 Chronic painful diabetic neuropathy E11.40 HTN (hypertension) I10 Hypertension type: essential hypertension
[2020-12-12 20:24] LABS: Glucose Point of Care 321 mg/dL (70-110)
[2020-12-12] MEDS: tamsulosin 0.4 mg Capsule PO (21:59)
[2020-12-12] MEDS: insulin glargine 100 units/1 mL 15 UNIT SUBCUT (21:59)
[2020-12-12] MEDS: atorvastatin 40 mg Tablet 80 MG PO (21:59)
[2020-12-12] MEDS: gabapentin 300 mg Capsule 600 MG PO (21:59)
[2020-12-13] VITALS (24 sets, daily range): BP systolic 98–121; BP diastolic 61–77; PULSE 71–168; RESP 17–94; TEMP 35.9–36.9; O2SAT 85–97
[2020-12-13] MEDS: ipratropium-albuterol 3 mL Neb INHALATION ×3 (02:36→22:19)
--- NOTE | 2020-12-13 02:37 | PC.NURSE ---
Patient oxygen sats continue to decline 84-85% on HHF 45/70. RT notified and assessing.
[2020-12-13] MEDS: dexamethasone 4 mg/mL INJ 6 MG IVP (05:12)
[2020-12-13] MEDS: cefTRIAXone 1,000 MG in sodium chloride 0.9% (plus) 50 ML 100 MG IV (05:20)
--- NOTE | 2020-12-13 06:00 | XR_ITS ---
WS: [id number] Portable AP upright chest, 12/13/2020 Clinical Data: pna Comparison: Portable chest, 12/10/2020. Findings: There are diffuse bilateral patchy pulmonary opacities consistent with pneumonia. The heart is enlarged. The aortic arch and descending aorta show tortuosity. Monitor leads are on the chest wa ll. XR/XR chest 1V portable [id number] Impression: Diffuse bilateral pulmonary opacities consistent with pneumonia.
[2020-12-13] MEDS: azithromycin 500 MG in sodium chloride 0.9% 250 ML 250 MG IV (06:15)
[2020-12-13 06:20] LABS: Glucose Point of Care 200 mg/dL (70-110)
--- NOTE | 2020-12-13 06:30 | PC.NURSE ---
Patient rested well through the night. Patient is on HHF 50 flow rate and 90 Fio2.
[2020-12-13 07:43] LABS: Basophils % 0.1 %; Eosinophils % 0.5 %; Hematocrit 40.5 % (42.0-52.0); Lymphocytes # 0.5 10^3/uL (0.8-4.8); Lymphocytes % 5.9 %; Mean Corpuscular HGB Conc 32.1 g/dL (30.0-36.0); Mean Corpuscular Hemoglobin 27.4 pg (28.0-34.0); Mean Corpuscular Volume 85.3 fL (80-94); Monocytes # 0.4 10^3/uL (0.2-0.9); Monocytes % 4.6 %; Neutrophils # 7.65 10^3/uL (1.8-7.7); Nucleated Red Blood Cells % 0 %; Platelet Count 281 10^3/cmm (130-400); Red Blood Count 4.75 10^6/uL (4.1-5.3); Red Cell Distribution Width 13.5 % (12.1-15.1); White Blood Count 8.7 10^3/uL (4.0-10.0)
[2020-12-13 08:10] LABS: Alanine Aminotransferase 79 U/L (0-41); Albumin Level 2.8 g/dL (3.5-5.2); Alkaline Phosphatase 100 IU/L (40-130); Anion Gap 13.9 (5-19); Aspartate Amino Transferase 34 U/L (0-40); Blood Urea Nitrogen 25 mg/dL (8-23); Calcium 8.1 mg/dL (8.5-10.5); Carbon Dioxide 24 mmol/L (22-29); Chloride 95 mmol/L (98-107); Globulin 3.4 g/dL (1.3-4.6); Glucose 178 mg/dL (65-115); Magnesium 1.9 mg/dL (1.7-2.3); Osmolality Calculated 277 mOsm/kg (285-295); Potassium 3.9 mmol/L (3.5-5.1); Sodium 129 mmol/L (136-145); Total Bilirubin 0.6 mg/dL (0.15-1.2); Total Protein 6.2 g/dL (6.6-8.7)
[2020-12-13] MEDS: apixaban 5 mg Tablet PO ×2 (08:35→20:58)
[2020-12-13] MEDS: sertraline 100 mg Tablet PO (08:35)
[2020-12-13] MEDS: finasteride 5 mg Tablet PO (08:35)
[2020-12-13] MEDS: FUROsemide 10 mg/mL SDV 4mL 40 MG IVP (08:52)
[2020-12-13] MEDS: budesonide 0.5 mg/2 mL Neb INHALATION ×2 (09:46→22:20)
--- NOTE | 2020-12-13 10:05 | PC.CHAP ---
Pastoral Care Encounter/Spiritual Assessment Type of Contact [] Declined loader operator supervisor visit [] Patient/Family/Request visit [] Outpatient visit [] Follow-up visit [] Physician referral [] Code/Alert [x] Routine visit [] Staff referral [] Actively dying [] Patient sleeping [] Family support [] [] Out of room [] Palliative care [] [] Receiving care in room [] Pre-surgical visit [] Trauma [] Long length of stay [] ICU visit [x] Other: covid Relational/Emotional Strength [] Patient feels connected with others/family/visitors/staff [] Distress [] Loneliness/isolation [] Abandonment Spirituality of Patient [] Person of Pamela [] Attends Zoroastrian of their Pamela [] Believes in Prayer [] Reads Bible or Taoism materials [] There are Spiritual issues to be addressed Channel Specialist Interventions [x] Prayer [] Active listening [] Non-anxious presence [] Spiritual/emotional support [] Crisis/trauma care [] Spiritual counseling [] Bereavement support [] Provided bereavement packet [] Provided Bible/devotional materials [] Provided toy/stuffed animal, coloring book to patient or family member [] Provided Communion [] Anointing/[place] [] Salvation [x] Completed spiritual assessment [] Other: Impact on Illness or Injury [] Angry [] Fearful [] Anxious [] Often cries [] Exhaustion [] Unable to work [] Unable to attend mormonism [] Unable to walk/stand [] Unable to read [] Unable to drive [] Unable to eat/drink [] Unable to sleep [] Unable to be with family [] Patient intubated [] Other: Summary Time spent with patient
[2020-12-13 12:08] LABS: Glucose Point of Care 279 mg/dL (70-110)
--- NOTE | 2020-12-13 12:33 | P.PN_ITS ---
Subjective Subjective: Interval history: Patient was seen and examined this morning, was seen sitting in the chair. states that he is feeling better as compared to yesterday, shortness of breath is slightly improved, he continues to require high supplemental oxygen, robust urine output with Lasix. Other vitals and labs have been reviewed. Medications: Reviewed: Yes Vitals/I&O/Wt Last Vital Signs Temp 97.7 F 12/13/20 09:45 Pulse 91 12/13/20 09:59 Resp 18 12/13/20 09:46 BP 121/67 12/13/20 09:45 Pulse Ox 97 12/13/20 09:46 12/12/20 12/13/20 12/13/20 22:59 06:59 14:59 Intake Total 205 / 455 300 / 300 Output Total 1300 / 1300 800 / 2100 600 / 600 Balance -1095 / -845 -800 / -1645 -300 / -300 Physical Exam Const: COMMON NORMALS: patient oriented x3 HENMT: COMMON NORMALS: normocephalic and atraumatic HEAD & SCALP: normocephalic and atraumatic Resp: OTHER: Bilateral crackles in both lung rendon Cardio: COMMON NORMALS: regular rate, regular rhythm, S1 normal heart sound p resent, S2 normal heart sound present, No gallops present (Cardio), No murmurs present (Cardio), No rub (Cardio) and Peripheral pulses 2+ throughout RATE: regular rate RHYTHM: regular rhythm HEART SOUNDS: S1 normal heart sound present and S2 normal heart sound present PERIPHERAL PULSES: Peripheral pulses 2+ throughout GI: COMMON NORMALS: Normal to inspection, nondistended, normoactive bowel sounds present, Soft to palpation, non-tender, No hepatosplenomegaly present and no masses AUSCULTATION: Yes normoactive bowel sounds PALPATION: Yes Soft to palpation and Yes No hepatosplenomegaly present RECTAL EXAM: Yes deferred Extremity: COMMON NORMALS: no clubbing, cyanosis or edema and no pedal edema Neuro: COMMON NORMALS: patient oriented x3 Urinary Catheter Management^: Obrien: Cath Placed During This Visit: yes Reason for Continuing Indwelling Catheter: Accurate Measurement of Urinary Output in Critically Ill Patients Urinary Catheter Date of Insertion: 12/11/20 Urinary Catheter Time of Insertion: 06:05 Data : 12/13/20 06:19 08/04/21 06:19 A&P Assessment and plan (1) COVID-19: Remdisivir 200mg iv x 1 followed by 100mg iv daily dexamethasone 6mg IVP daily duoneb q6h, budesonide q12h empiric CTX and azithromycin Blood cultures: Negative Flutter valve/spirometer at bedside trend inflammatory markers including CRP, LDH, D dimer, Ferritin CTA PE to evalaute for PE given elevated D dimer cannot be perfromed given SHUKRI with CKD 2.9. Patient is on eliquis as outpatient for a prior history of DVT, possibility remains low CXR today with official read of chronic interstitial scarring, however appearing to be new compared to recent CXR. Status: Acute (2) Respiratory failure: Status: Acute Qualifiers: Chronicity: acute Respiratory failure complication: hypoxia Qualified Code(s): J96.01 - Acute respiratory failure with hypoxia (3) Decompensated heart failure: Decompensated heart failure with preserved ejection fraction: 2D echo: Normal left ventricular cavity size. Normal left ventricular systolic function. Left ventricular ejection fraction is estimated at 65 %. Grade I diastolic dysfunction (abnormal relaxation filling pattern), normal to mildly elevated filling pressures. Normal right ventricular size and systolic function. No significant valvular abnormality based on the study. Normal pulmonary artery pressure. intake output charting Daily weight K>4, MG >2 Lasix 40 mg IV daily Status: Acute (4) A-fib: Status: Acute (5) Acute kidney injury superimposed on CKD: SHUKRI on CKD stage III: Likely secondary to cardiorenal syndrome secondary to decompensated heart failure: Resolved Admission serum creatinine 2.9. Current serum creatinine at baseline. monitor BMP intake output charting renal ultrasound: Prominent right renal pelvis. No hydronephrosis.. Right renal cortical atrophy. Normal left kidney. No hydronephrosis. Status: Acute (6) History of deep venous thrombosis (DVT) of distal vein of left lower extremity: On Eliquis. Status: Chronic (7) Mixed dyslipidemia: Status: Chronic (8) Chronic painful diabetic neuropathy: Status: Chronic (9) HTN (hypertension): Status: Chronic Qualifiers: Hypertension type: essential hypertension Qualified Code(s): I10 - Essential (primary) hypertension Additional A&P Information Recent UTI: E.coli on CX, ceftriaxone to cover check UA DVT ppx: Eliquis 5mg BID continued from home meds Full code Attestations Medical Necessity Statement*: Patient needs to be in hospital for the management of covid pna Coding Level of Care Code Acute Circulation Supervisor for Chg Fwd Exam Detailed Diagnoses COVID-19 U07.1 Respiratory failure J96.01 Chronicity: acute Respiratory failure complication: hypoxia Decompensated heart failure I50.9 A-fib I48.91 Acute kidney injury superimposed on CKD N17.9; N18.9 History of deep venous thrombosis (DVT) of distal vein of left lower extremity Z86.718 Mixed dyslipidemia E78.2 Chronic painful diabetic neuropathy E11.40 HTN (hypertension) I10 Hypertension type: essential hypertension
[2020-12-13] MEDS: ondansetron 2 mg/ML SDV 2 mL 4 MG IVP (12:58)
--- NOTE | 2020-12-13 14:30 | PC.SOCIAL ---
IMM update IMM updated with Rosibel. Verbalized an understanding. No questions voiced. Initialed, dated, timed, and placed in chart.
[2020-12-13] MEDS: remdesivir 100 MG in sodium chloride 0.9% (100 ml) 100 ML IV (17:23)
[2020-12-13 17:35] LABS: Glucose Point of Care 281 mg/dL (70-110)
[2020-12-13 20:21] LABS: Glucose Point of Care 128 mg/dL (70-110)
[2020-12-13] MEDS: atorvastatin 40 mg Tablet 80 MG PO (20:57)
[2020-12-13] MEDS: tamsulosin 0.4 mg Capsule PO (20:57)
[2020-12-13] MEDS: metoprolol tartrate 25 mg Tablet 12.5 MG PO (20:57)
[2020-12-13] MEDS: gabapentin 300 mg Capsule 600 MG PO (20:58)
[2020-12-13] MEDS: insulin glargine 100 units/1 mL 15 UNIT SUBCUT (20:58)
--- NOTE | 2020-12-13 21:14 | PC.NURSE ---
Patient oxygen saturation declining after shift assessment and using IS. Saturations down to 83% and sustaining with deep breathing. RT notified and currently with patient. Patient is on F 50/49
--- NOTE | 2020-12-13 21:38 | PC.NURSE ---
Reassessed patient finding him at 83% HHF 50/70. Patient is currently proned saturations at 91% RT notified.
[2020-12-13 22:40] LABS: Glucose Point of Care 56 mg/dL (70-110)
--- NOTE | 2020-12-13 22:44 | PC.NURSE ---
Patient reported he feels like his blood sugar has dropped. This nurse tested patient blood sugar, with a reading of 56. Patient was given juice, pudding, and hipolito crackers.
--- NOTE | 2020-12-13 23:17 | PC.NURSE ---
Patients Blood sugar 173.
[2020-12-14] VITALS (19 sets, daily range): BP systolic 98–113; BP diastolic 52–73; PULSE 75–98; RESP 18–31; TEMP 36.6–36.7; O2SAT 86–97
[2020-12-14] MEDS: ipratropium-albuterol 3 mL Neb INHALATION ×3 (02:46→22:05)
[2020-12-14] MEDS: cefTRIAXone 1,000 MG in sodium chloride 0.9% (plus) 50 ML 100 MG IV (05:04)
[2020-12-14] MEDS: dexamethasone 4 mg/mL INJ 6 MG IVP (05:07)
--- NOTE | 2020-12-14 06:16 | PC.NURSE ---
Shift summary Patient had a few episodes of oxygen sats declining. Patient laid in prone position for a few hours. RT titrated HHF up to 50/70. Patients blood sugar also dropped to 56. Patient was given juice and pudding with a follow up blood glucose test of 173. Oxygen saturations remain high 80's to low 90's in lateral position.
[2020-12-14 07:26] LABS: Basophils % 0.1 %; Eosinophils # 0.1 10^3/uL (0.0-0.8); Eosinophils % 0.6 %; Hematocrit 36.4 % (42.0-52.0); Lymphocytes # 0.3 10^3/uL (0.8-4.8); Lymphocytes % 3.1 %; Mean Corpuscular Hemoglobin 27.4 pg (28.0-34.0); Mean Corpuscular Volume 83.1 fL (80-94); Mean Platelet Volume 9.9 fL (7.4-10.4); Monocytes # 0.3 10^3/uL (0.2-0.9); Monocytes % 3.8 %; Neutrophils # 7.84 10^3/uL (1.8-7.7); Nucleated Red Blood Cells % 0 %; Platelet Count 265 10^3/cmm (130-400); Red Blood Count 4.38 10^6/uL (4.1-5.3); Red Cell Distribution Width 13.2 % (12.1-15.1); White Blood Count 8.5 10^3/uL (4.0-10.0)
[2020-12-14 07:49] LABS: D Dimer 3.35 ug/mIFEU (0-0.59)
[2020-12-14 08:03] LABS: Alanine Aminotransferase 54 U/L (0-41); Albumin Level 2.8 g/dL (3.5-5.2); Alkaline Phosphatase 106 IU/L (40-130); Anion Gap 12.9 (5-19); Aspartate Amino Transferase 28 U/L (0-40); Blood Urea Nitrogen 19 mg/dL (8-23); C Reactive Protein 55.5 mg/L (0.0-4.9); Calcium 8.1 mg/dL (8.5-10.5); Carbon Dioxide 25 mmol/L (22-29); Chloride 93 mmol/L (98-107); Creatinine Clr Calc Pharmacy 97.8057; Ferritin 646 ng/mL (30-400); Globulin 2.6 g/dL (1.3-4.6); Glucose 182 mg/dL (65-115); Magnesium 1.8 mg/dL (1.7-2.3); Osmolality Calculated 271 mOsm/kg (285-295); Potassium 3.9 mmol/L (3.5-5.1); Sodium 127 mmol/L (136-145); Total Bilirubin 0.7 mg/dL (0.15-1.2); Total Protein 5.4 g/dL (6.6-8.7)
[2020-12-14 08:06] LABS: Procalcitonin 0.19 ng/mL (0-0.5)
[2020-12-14 08:11] LABS: Glucose Point of Care 244 mg/dL (70-110)
[2020-12-14 08:40] LABS: Erythrocyte Sedimentation Rate 49 mm/hr (0-10)
[2020-12-14] MEDS: FUROsemide 40 mg Tablet PO (08:51)
[2020-12-14] MEDS: budesonide 0.5 mg/2 mL Neb INHALATION ×2 (09:59→22:05)
--- NOTE | 2020-12-14 09:59 | PC.CHAP ---
Pastoral Care Encounter/Spiritual Assessment Type of Contact [] Declined client support associate visit [] Patient/Family/Request visit [] Outpatient visit [] Follow-up visit [] Physician referral [] Code/Alert [x] Routine visit [] Staff referral [] Actively dying [] Patient sleeping [] Family support [] [] Out of room [] Palliative care [] [] Receiving care in room [] Pre-surgical visit [] Trauma [] Long length of stay [] ICU visit [x] Other: covid Relational/Emotional Strength [] Patient feels connected with others/family/visitors/staff [] Distress [] Loneliness/isolation [] Abandonment Spirituality of Patient [] Person of Pamela [] Attends Denominational of their Pamela [] Believes in Prayer [] Reads Bible or Mandaeism materials [] There are Spiritual issues to be addressed Washer Assembler Interventions [x] Prayer [] Active listening [] Non-anxious presence [] Spiritual/emotional support [] Crisis/trauma care [] Spiritual counseling [] Bereavement support [] Provided bereavement packet [] Provided Bible/devotional materials [] Provided toy/stuffed animal, coloring book to patient or family member [] Provided Communion [] Anointing/[place] [] Salvation [x] Completed spiritual assessment [] Other: Impact on Illness or Injury [] Angry [] Fearful [] Anxious [] Often cries [] Exhaustion [] Unable to work [] Unable to attend caodaism [] Unable to walk/stand [] Unable to read [] Unable to drive [] Unable to eat/drink [] Unable to sleep [] Unable to be with family [] Patient intubated [] Other: Summary Time spent with patient
[2020-12-14 11:00] LABS: Glucose Point of Care 433 mg/dL (70-110)
[2020-12-14] MEDS: finasteride 5 mg Tablet PO (11:10)
[2020-12-14] MEDS: metoprolol tartrate 25 mg Tablet 12.5 MG PO ×2 (11:10→21:20)
[2020-12-14] MEDS: apixaban 5 mg Tablet PO ×2 (11:10→21:20)
[2020-12-14] MEDS: sertraline 100 mg Tablet PO (11:11)
--- NOTE | 2020-12-14 12:28 | PM.PN ---
Subjective Subjective: Interval history: Patient was seen and examined this morning, was seen sitting in the chair. states that he is feeling better as compared to yesterday, shortness of breath has improved,but it has been a slow and steady progress. Medications: Reviewed: Yes Vitals/I&O/Wt Last Vital Signs Temp 97.8 F 12/14/20 12:00 Pulse 82 12/14/20 12:00 Resp 19 H 12/14/20 12:00 BP 113/62 12/14/20 12:00 Pulse Ox 92 12/14/20 12:00 12/13/20 12/14/20 12/14/20 22:59 06:59 14:59 Intake Total 220 / 520 120 / 640 480 / 480 Output Total 850 / 2150 400 / 2550 Balance -630 / -1630 -280 / -1910 480 / 480 Physical Exam Const: COMMON NORMALS: patient oriented x3 HENMT: COMMON NORMALS: normocephalic and atraumatic HEAD & SCALP: normocephalic and atraumatic Resp: OTHER: Bilateral crackles in both lung rendon Cardio: COMMON NORMALS: regular rate, regular rhythm, S1 normal heart sound present, S2 normal heart sound present, No gallops present (Cardio), No murmurs present (Cardio), No rub (Cardio) and Peripheral pulses 2+ throughout RATE: regular rate RHYTHM: regular rhythm HEART SOUNDS: S1 normal heart sound present and S2 normal heart sound present PERIPHERAL PULSES: Peripheral pulses 2+ throughout GI: COMMON NORMALS: Normal to inspection, nondistended, normoactive bowel sounds present, Soft to palpation, non-tender, No hepatosplenomegaly present and no masses AUSCULTATION: Yes normoactive bowel sounds PALPATION: Yes Soft to palpation and Yes No hepatosplenomegaly present RECTAL EXAM: Yes deferred Extremity: COMMON NORMALS: no clubbing, cyanosis or edema and no pedal edema Neuro: COMMON NORMALS: patient oriented x3 Urinary Catheter Management^: Obrien: Cath Placed During This Visit: yes Reason for Continuing Indwelling Catheter: Accurate Measurement of Urinary Output in Critically Ill Patients Urinary Catheter Date of Insertion: 12/11/20 Urinary Catheter Time of Insertion: 06:05 Data : 12/14/20 06:38 12/14/20 06:38 Micro: Microbiology 12/10/20 19:30 Blood Culture - Preliminary Blood Bacillus sp not b. anthracis A&P Assessment and plan (1) COVID-19: Remdisivir 200mg iv x 1 followed by 100mg iv daily dexamethasone 6mg IVP daily duoneb q6h, budesonide q12h empiric CTX and azithromycin Blood cultures: Negative Flutter valve/spirometer at bedside trend inflammatory markers including CRP, LDH, D dimer, Ferritin CTA PE to evalaute for PE given elevated D dimer cannot be perfromed given SHUKRI with CKD 2.9. Patient is on eliquis as outpatient for a prior history of DVT, possibility remains low CXR today with official read of chronic interstitial scarring, however appearing to be new compared to recent CXR. Status: Acute (2) Respiratory failure: Status: Acute Qualifiers: Chronicity: acute Respiratory failure complication: hypoxia Qualified Code(s): J96.01 - Acute respiratory failure with hypoxia (3) Decompensated heart failure: Decompensated heart failure with preserved ejection fraction: 2D echo: Normal left ventricular cavity size. Normal left ventricular systolic function. Left ventricular ejection fraction is estimated at 65 %. Grade I diastolic dysfunction (abnormal relaxation filling pattern), normal to mildly elevated filling pressures. Normal right ventricular size and systolic function. No significant valvular abnormality based on the study. Normal pulmonary artery pressure. intake output charting Daily weight K>4, MG >2 Lasix 40 mg IV daily Status: Acute (4) A-fib: Status: Acute (5) Acute kidney injury superimposed on CKD: SHUKRI on CKD stage III: Likely secondary to cardiorenal syndrome secondary to decompensated heart failure: Resolved Admission serum creatinine 2.9. Current serum creatinine at baseline. monitor BMP intake output charting renal ultrasound: Prominent right renal pelvis. No hydronephrosis.. Right renal cortical atrophy. Normal left kidney. No hydronephrosis. Status: Acute (6) History of deep venous thrombosis (DVT) of distal vein of left lower extremity: On Eliquis. Status: Chronic (7) Mixed dyslipidemia: Status: Chronic (8) Chronic painful diabetic neuropathy: Status: Chronic (9) HTN (hypertension): Status: Chronic Qualifiers: Hypertension type: essential hypertension Qualified Code(s): I10 - Essential (primary) hypertension Additional A&P Information Recent UTI: E.coli on CX, ceftriaxone to cover check UA DVT ppx: Eliquis 5mg BID continued from home meds Full code Attestations Medical Necessity Statement*: Patient needs to be in hospital for management of respiratory failure secondary to Covid pneumonia. 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
[2020-12-14] MEDS: remdesivir 100 MG in sodium chloride 0.9% (100 ml) 100 ML IV (18:55)
[2020-12-14 20:44] LABS: Glucose Point of Care 237 mg/dL (70-110)
[2020-12-14] MEDS: tamsulosin 0.4 mg Capsule PO (21:20)
[2020-12-14] MEDS: gabapentin 300 mg Capsule 600 MG PO (21:20)
[2020-12-14] MEDS: atorvastatin 40 mg Tablet 80 MG PO (21:20)
[2020-12-14] MEDS: ALPRAZolam 0.5 mg Tablet PO (21:22)
[2020-12-14] MEDS: insulin glargine 100 units/1 mL 15 UNIT SUBCUT (21:22)
[2020-12-15] VITALS (15 sets, daily range): BP systolic 108–127; BP diastolic 60–84; PULSE 77–103; RESP 17–28; TEMP 36.4–36.7; O2SAT 86–93
[2020-12-15] MEDS: cefTRIAXone 1,000 MG in sodium chloride 0.9% (plus) 50 ML 100 MG IV (04:46)
[2020-12-15] MEDS: dexamethasone 4 mg/mL INJ 6 MG IVP (06:06)
[2020-12-15 06:52] LABS: Glucose Point of Care 123 mg/dL (70-110)
[2020-12-15 06:56] LABS: C Reactive Protein 91.7 mg/L (0.0-4.9); Ferritin 646 ng/mL (30-400)
[2020-12-15 07:04] LABS: D Dimer 8.15 ug/mIFEU (0-0.59)
--- NOTE | 2020-12-15 07:04 | PC.NURSE ---
Shift Summary Patient was very tired and weak. Requested something to help him rest and sleep tonight. Night Hospitalist ordered Xanax 0.5MG PO ONCE. Patient was then able to get some rest. Patient remains on HHF 45/50. Patient oxygen declines with exertion and takes a little while to recover with deep breathing.
[2020-12-15 07:54] LABS: Erythrocyte Sedimentation Rate 50 mm/hr (0-10)
--- NOTE | 2020-12-15 09:09 | XRR_ITS ---
PROCEDURE INFORMATION: Exam: XR Chest Exam date and time: 12/15/2020 9:09 AM Age: 70 years old Clinical indication: Pneumonia TECHNIQUE: Imaging protocol: XR of the chest. Views: 1 view. COMPARISON: CR XR chest 1V portable [id number] 12/13/2020 6:22 AM FINDINGS: Lungs: There is bilateral patchy airspace disease with somewhat of a peripheral predominance. Air bronchogram formation in the infrahilar regions bilaterally. The findings would be compatible with bilateral pneumonia, and this appears to be somewhat worse in the interval. Pleural spaces: No large pleural effusions. No pneumothorax. Heart/Mediastinum: The cardiac silhouette is enlarged. There is widening of the mediastinum, perhaps due to mediastinal lipomatosis given the patient's body habitus. Bones/joints: No acute osseous abnormality. XR/XR chest 1V portable [id number] IMPRESSION: Some interval worsening in bilateral pneumonia.
[2020-12-15 09:21] LABS: Basophils % 0.1 %; Eosinophils # 0.1 10^3/uL (0.0-0.8); Eosinophils % 0.9 %; Hematocrit 35.5 % (42.0-52.0); Hemoglobin 11.8 g/dL (11.7-16.6); Lymphocytes # 0.5 10^3/uL (0.8-4.8); Lymphocytes % 5.8 %; Mean Corpuscular HGB Conc 33.2 g/dL (30.0-36.0); Mean Corpuscular Hemoglobin 27.5 pg (28.0-34.0); Mean Corpuscular Volume 82.8 fL (80-94); Mean Platelet Volume 10.9 fL (7.4-10.4); Monocytes # 0.4 10^3/uL (0.2-0.9); Monocytes % 4.3 %; Neutrophils # 7.87 10^3/uL (1.8-7.7); Nucleated Red Blood Cells % 0 %; Platelet Count 260 10^3/cmm (130-400); Red Blood Count 4.29 10^6/uL (4.1-5.3); Red Cell Distribution Width 13.4 % (12.1-15.1); White Blood Count 8.9 10^3/uL (4.0-10.0)
[2020-12-15 09:35] LABS: Anion Gap 12.4 (5-19); Blood Urea Nitrogen 18 mg/dL (8-23); Calcium 7.8 mg/dL (8.5-10.5); Carbon Dioxide 26 mmol/L (22-29); Chloride 94 mmol/L (98-107); Creatinine Clr Calc Pharmacy 97.8057; Glucose 74 mg/dL (65-115); Osmolality Calculated 269 mOsm/kg (285-295); Potassium 3.4 mmol/L (3.5-5.1); Sodium 129 mmol/L (136-145)
--- NOTE | 2020-12-15 09:42 | PC.SOCIAL ---
IMM Updated Updated pt's friend Rosibel, on Pg 2 IMM. No questions voiced. Provided pt care nurse a copy to give to pt. Initialed, dated, & timed copy in chart.
[2020-12-15] MEDS: budesonide 0.5 mg/2 mL Neb INHALATION (10:13)
[2020-12-15] MEDS: ipratropium-albuterol 3 mL Neb INHALATION ×2 (10:13→15:44)
[2020-12-15] MEDS: FUROsemide 40 mg Tablet PO (11:49)
[2020-12-15] MEDS: finasteride 5 mg Tablet PO (11:49)
[2020-12-15] MEDS: metoprolol tartrate 25 mg Tablet 12.5 MG PO ×2 (11:49→22:14)
[2020-12-15] MEDS: apixaban 5 mg Tablet PO ×2 (11:49→22:15)
[2020-12-15] MEDS: sertraline 100 mg Tablet PO (11:49)
[2020-12-15 13:57] LABS: Glucose Point of Care 397 mg/dL (70-110)
--- NOTE | 2020-12-15 14:38 | P.PN_ITS ---
Subjective Subjective: Interval history: Patient was seen and examined this morning, was seen sitting in the chair. Has shown good signs of improvement.Says that with each passing day he fells better. Oral intake has also improved.Do not want to go to senior living. Medications: Reviewed: Yes Vitals/I&O/Wt Last Vital Signs Temp 97.6 F 12/15/20 12:00 Pulse 86 12/15/20 12:00 Resp 18 12/15/20 12:00 BP 108/63 12/15/20 12:00 Pulse Ox 93 12/15/20 12:00 12/14/20 12/15/20 12/15/20 22:59 06:59 14:59 Intake Total 820 / 1350 1290 / 2640 Output Total 1100 / 2900 500 / 3400 Balance -280 / -1550 790 / -760 Physical Exam Const: COMMON NORMALS: patient oriented x3 HENMT: COMMON NORMALS: normocephalic and atraumatic HEAD & SCALP: normocephalic and atraumatic Resp: OTHER: Bilateral crackles in both lung rendon Cardio: COMMON NORMALS: regular rate, regular rhythm, S1 normal heart sound present, S2 normal heart sound present, No gallops present (Cardio), No murmurs present (Cardio), No rub (Cardio) and Peripheral pulses 2+ throughout RATE: regular rate RHYTHM: regular rhythm HEART SOUNDS: S1 normal heart sound present and S2 normal heart sound present PERIPHERAL PULSES: Peripheral pulses 2+ throughout GI: COMMON NORMALS: Normal to inspection, nondistended, normoactive bowel sounds present, Soft to palpation, non-tender, No hepatosplenomegaly present and no masses AUSCULTATION: Yes normoactive bowel sounds PALPATION: Yes Soft to palpation and Yes No hepatosplenomegaly present RECTAL EXAM: Yes deferred Extremity: COMMON NORMALS: no clubbing, cyanosis or edema and no pedal edema Neuro: COMMON NORMALS: patient oriented x3 Urinary Catheter Management^: Obrien: Cath Placed During This Visit: yes Reason for Continuing Indwelling Catheter: Accurate Measurement of Urinary Output in Critically Ill Patients Urinary Catheter Date of Insertion: 12/11/20 Urinary Catheter Time of Insertion: 06:05 Data : 12/15/20 06:00 12/15/20 06:00 A&P Assessment and plan (1) COVID-19: Remdisivir 200mg iv x 1 followed by 100mg iv daily dexamethasone 6mg IVP daily duoneb q6h, budesonide q12h empiric CTX and azithromycin Blood cultures: Negative Flutter valve/spirometer at bedside trend inflammatory markers including CRP, LDH, D dimer, Ferritin CTA PE to evalaute for PE given elevated D dimer cannot be perfromed given SHUKRI with CKD 2.9. Patient is on eliquis as outpatient for a prior history of DVT, possibility remains low CXR today with official read of chronic interstitial scarring, however appearing to be new compared to recent CXR. Status: Acute (2) Respiratory failure: Status: Acute Qualifiers: Chronicity: acute Respiratory failure complication: hypoxia Qualified Code(s): J96.01 - Acute respiratory failure with hypoxia (3) Decompensated heart failure: Decompensated heart failure with preserved ejection fraction: 2D echo: Normal left ventricular cavity size. Normal left ventricular systolic function. Left ventricular ejection fraction is estimated at 65 %. Grade I diastolic dysfunction (abnormal relaxation filling pattern), normal to mildly elevated filling pressures. Normal right ventricular size and systolic function. No significant valvular abnormality based on the study. Normal pulmonary artery pressure. intake output charting Daily weight K>4, MG >2 Lasix 40 mg po daily Status: Acute (4) A-fib: Status: Acute (5) Acute kidney injury superimposed on CKD: SHUKRI on CKD stage III: Likely secondary to cardiorenal syndrome secondary to decompensated heart failure: Resolved Admission serum creatinine 2.9. Current serum creatinine at baseline. monitor BMP intake output charting renal ultrasound: Prominent right renal pelvis. No hydronephrosis.. Right renal cortical atrophy. Normal left kidney. No hydronephrosis. Status: Acute (6) History of deep venous thrombosis (DVT) of distal vein of left lower extremity: On Eliquis. Status: Chronic (7) Mixed dyslipidemia: Status: Chronic (8) Chronic painful diabetic neuropathy: Status: Chronic (9) HTN (hypertension): Status: Chronic Qualifiers: Hypertension type: essential hypertension Qualified Code(s): I10 - Essential (primary) hypertension Additional A&P Information Recent UTI: E.coli on CX, ceftriaxone to cover check UA DVT ppx: Eliquis 5mg BID continued from home meds Full code Attestations Medical Necessity Statement*: Patient needs to be in hospital for the management of PNA. 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
--- NOTE | 2020-12-15 14:59 | PC.NUTR ---
Nutritional assessment completed for LOS. Noted 42% average intake X 6 meals, however 7 other meals missing from EMR. Average intake unclear at this time. Will add chocolate Glucerna BID for additional kcal/protein. See full RD assessment for further details.
[2020-12-15] MEDS: potassium chloride premix 100 ML 25 MEQ IV (16:20)
[2020-12-15 16:55] LABS: Glucose Point of Care 354 mg/dL (70-110)
[2020-12-15 21:17] LABS: Glucose Point of Care 173 mg/dL (70-110)
[2020-12-15 21:17] LABS: Glucose Point of Care 241 mg/dL (70-110)
[2020-12-15 21:17] LABS: Glucose Point of Care 261 mg/dL (70-110)
[2020-12-15 21:17] LABS: Glucose Point of Care 198 mg/dL (70-110)
[2020-12-15 21:17] LABS: Glucose Point of Care 232 mg/dL (70-110)
[2020-12-15 21:46] LABS: Glucose Point of Care 206 mg/dL (70-110)
[2020-12-15] MEDS: atorvastatin 40 mg Tablet 80 MG PO (22:14)
[2020-12-15] MEDS: gabapentin 300 mg Capsule 600 MG PO (22:14)
[2020-12-15] MEDS: tamsulosin 0.4 mg Capsule PO (22:15)
[2020-12-15] MEDS: insulin glargine 100 units/1 mL 15 UNIT SUBCUT (22:22)
[2020-12-15] MEDS: ondansetron 2 mg/ML SDV 2 mL 4 MG IVP (23:37)
[2020-12-16] VITALS (19 sets, daily range): BP systolic 91–118; BP diastolic 55–66; PULSE 63–97; RESP 12–45; TEMP 36.7–38; O2SAT 84–95
[2020-12-16] MEDS: cefTRIAXone 1,000 MG in sodium chloride 0.9% (plus) 50 ML 100 MG IV (04:30)
--- NOTE | 2020-12-16 04:45 | PC.NURSE ---
Addendum entered by Majo Bennett LPN 12/16/20 05:41: Patient seemed to be struggling to maintain his 02. patient now on bipap. Addendum entered by Majo Bennett LPN 12/16/20 04:59: Patient has had low grade temp tonight. Original Note: Shift Note Frequent safety and comfort rounds continue. Orders and/or nursing care completed as indicated. Patient monitored for response to intervention and treatment(s). Education provided includes use of IS and cough turn and deep breathe. Patient was on 13L HF at start of shift. Patient is now requiring HHF at 60L [id number]. Will continue to monitor.
[2020-12-16] MEDS: dexamethasone 4 mg/mL INJ 6 MG IVP (05:07)
[2020-12-16] MEDS: ondansetron 2 mg/ML SDV 2 mL 4 MG IVP (05:16)
[2020-12-16 06:54] LABS: Glucose Point of Care 86 mg/dL (70-110)
[2020-12-16] MEDS: metoprolol tartrate 25 mg Tablet 12.5 MG PO (08:55)
[2020-12-16] MEDS: finasteride 5 mg Tablet PO (08:55)
[2020-12-16] MEDS: apixaban 5 mg Tablet PO ×2 (08:55→21:10)
[2020-12-16] MEDS: sertraline 100 mg Tablet PO (08:55)
[2020-12-16] MEDS: FUROsemide 40 mg Tablet PO (08:55)
[2020-12-16] MEDS: budesonide 0.5 mg/2 mL Neb INHALATION ×2 (10:11→20:12)
[2020-12-16] MEDS: ipratropium-albuterol 3 mL Neb INHALATION ×4 (10:11→20:12)
--- NOTE | 2020-12-16 10:31 | XRR_ITS ---
PROCEDURE INFORMATION: Exam: XR Chest Exam date and time: 12/16/2020 10:31 AM Age: 70 years old Clinical indication: Shortness of breath; Additional info: Pna TECHNIQUE: Imaging protocol: XR of the chest. Views: 1 view. COMPARISON: CR XR chest 1V portable [id number] 12/15/2020 9:24 AM FINDINGS: Lungs: Moderate bilateral pulmonary opacities, increased, compatible with multifocal pneumonia. Pleural spaces: Possible small bilateral pleural effusions. Heart/Mediastinum: The cardiac silhouette is the upper limit of normal in size. Bones/joints: No acute fracture. XR/XR chest 1V portable [id number] IMPRESSION: 1. Moderate bilateral pulmonary opacities, increased, compatible with multifocal pneumonia. 2. Possible small bilateral pleural effusions.
[2020-12-16] MEDS: LORazepam 2 mg/mL INJ 1 mL IVP (10:38)
[2020-12-16] MEDS: sodium chloride 0.9% 1,000 ML 30 ML IV (11:19)
[2020-12-16 11:32] LABS: Glucose Point of Care 341 mg/dL (70-110)
--- NOTE | 2020-12-16 12:17 | XRR_ITS ---
PROCEDURE INFORMATION: Exam: XR Chest Exam date and time: 12/16/2020 12:17 PM Age: 70 years old Clinical indication: Device placement; Ett placement (vent status); Additional info: Post-intubation TECHNIQUE: Imaging protocol: XR of the chest. Views: 1 view. COMPARISON: CR (CHEST, ) 12/16/2020 10:51 AM FINDINGS: Tubes, catheters and devices: Right central line terminates within the right atrium. Endotracheal tube terminates in proper position above the tho. Lungs: Diffuse opacities throughout both lungs, not significantly changed from prior exam. Pleural spaces: Unremarkable. No pleural effusion. No pneumothorax. Heart/Mediastinum: Unremarkable. No cardiomegaly. Bones/joints: Unremarkable. XR/XR chest 1V portable [id number] IMPRESSION: 1. Endotracheal tube in proper position above the tho. 2. Right central line terminates within the right atrium. 3. No significant interval change to the diffuse patulous opacities throughout both lungs.
--- NOTE | 2020-12-16 12:19 | PC.NURSE ---
Report called to ICU, Mana PICKARD at this time.
--- NOTE | 2020-12-16 12:24 | PC.NURSE ---
Contacted Rosibel at this time of patient moving to ICU at this time. Expressed thanks and understanding at this time.
[2020-12-16 12:39] LABS: Blood Urea Nitrogen 24 mg/dL (8-23); C Reactive Protein 166.4 mg/L (0.0-4.9); Carbon Dioxide 20 mmol/L (22-29); Ferritin 726 ng/mL (30-400); Glucose 287 mg/dL (65-115); Magnesium 1.8 mg/dL (1.7-2.3); Osmolality Calculated 279 mOsm/kg (285-295); Sodium 127 mmol/L (136-145)
[2020-12-16 12:44] LABS: Basophils % 0.1 %; Eosinophils % 0.1 %; Hematocrit 35.9 % (42.0-52.0); Hemoglobin 11.8 g/dL (11.7-16.6); Lymphocytes # 0.2 10^3/uL (0.8-4.8); Lymphocytes % 1.4 %; Mean Corpuscular HGB Conc 32.9 g/dL (30.0-36.0); Mean Corpuscular Hemoglobin 27.7 pg (28.0-34.0); Mean Corpuscular Volume 84.3 fL (80-94); Monocytes # 0.3 10^3/uL (0.2-0.9); Monocytes % 2.2 %; Neutrophils # 13.55 10^3/uL (1.8-7.7); Neutrophils % 95.8 %; Nucleated Red Blood Cells % 0 %; Platelet Count 219 10^3/cmm (130-400); Red Blood Count 4.26 10^6/uL (4.1-5.3); Red Cell Distribution Width 13.8 % (12.1-15.1); White Blood Count 14.1 10^3/uL (4.0-10.0)
[2020-12-16] MEDS: dexmedetomidine 400 MCG in sodium chloride 0.9% (100 ml) 100 ML IV (12:45)
[2020-12-16] MEDS: propofol 1,000 MG/100 ML INJ 2.72 MG IV (12:45)
[2020-12-16 12:50] LABS: D Dimer 14.95 ug/mIFEU (0-0.59)
[2020-12-16 12:52] LABS: Calcium 7.4 mg/dL (8.5-10.5); Chloride 94 mmol/L (98-107)
[2020-12-16 12:59] LABS: Anion Gap 17.6 (5-19); Potassium 4.6 mmol/L (3.5-5.1)
[2020-12-16 13:51] LABS: Erythrocyte Sedimentation Rate 47 mm/hr (0-10)
[2020-12-16] MEDS: succinylcholine 20 mg/mL SDV 10mL IVP (13:59)
[2020-12-16] MEDS: fentaNYL 50 mcg/mL INJ 2mL IVP (14:00)
[2020-12-16] MEDS: midazolam 1 mg/mL INJ 2 mL 2 MG IVP (14:00)
--- NOTE | 2020-12-16 14:09 | PC.NURSE ---
Patient was brought to unit at 1220 via bed on a non rebreather mask. Intubation medications were at bedside and was intubated at 1230. Bilateral breath sounds heard with positive color change. Central line was placed after.
[2020-12-16] MEDS: piperacillin-tazobactam 3.375 GM in sodium chloride 0.9% (plus) 50 ML IV ×2 (15:14→22:26)
--- NOTE | 2020-12-16 15:40 | PM.PN ---
Subjective Subjective: Interval history: Patient was seen and examined this morning,he had a rough night yesterday,likely aspirated, was placed on 100 % fiO2 through [facility]. This morning he was in respiratory distress with severe work of breathing and extremely tachypenic nreathing in high 30s to 40s, was not tolerating BIPAP Well. Patient was quickly moved to ICU and was intubated and placed on mechanical ventilation. Medications: Reviewed: Yes Vitals/I&O/Wt Last Vital Signs Temp 98.0 F 12/16/20 12:00 Pulse 81 12/16/20 14:19 Resp 16 12/16/20 14:19 BP 91/58 12/16/20 12:00 Pulse Ox 89 L 12/16/20 14:19 12/16/20 12/16/20 12/16/20 06:59 14:59 22:59 Intake Total 50 / 150 37.985 / 37.985 Balance 50 / -2200 37.985 / 37.985 Physical Exam Const: COMMON NORMALS: patient oriented x3 HENMT: COMMON NORMALS: normocephalic and atraumatic HEAD & SCALP: normocephalic and atraumatic Resp: OTHER: Bilateral crackles in both lung rendon Cardio: COMMON NORMALS: regular rate, regular rhythm, S1 normal heart sound present, S2 normal heart sound present, No gallops present (Cardio), No murmurs present (Cardio), No rub (Cardio) and Peripheral pulses 2+ throughout RATE: regular rate RHYTHM: regular rhythm HEART SOUNDS: S1 normal heart sound present and S2 normal heart sound present PERIPHERAL PULSES: Peripheral pulses 2+ throughout GI: COMMON NORMALS: Normal to inspection, nondistended, normoactive bowel sounds present, Soft to palpation, non-tender, No hepatosplenomegaly present and no masses AUSCULTATION: Yes normoactive bowel sounds PALPATION: Yes Soft to palpation and Yes No hepatosplenomegaly present RECTAL EXAM: Yes deferred Extremity: COMMON NORMALS: no clubbing, cyanosis or edema and no pedal edema Neuro: COMMON NORMALS: patient oriented x3 Urinary Catheter Management^: Obrein: Cath Placed During This Visit: yes Reason for Continuing Indwelling Catheter: Accurate Measurement of Urinary Output in Critically Ill Patients Urinary Catheter Date of Insertion: 12/11/20 Urinary Catheter Time of Insertion: 06:05 Data : 12/16/20 12:02 12/16/20 12:02 Micro: Microbiology 12/10/20 19:30 Blood Culture - Final Blood Bacillus sp not b. anthracis 12/10/20 19:50 Blood Culture - Final Blood NO GROWTH AFTER 5 DAYS A&P Assessment and plan (1) Respiratory failure with hypoxia: Ac hypoxic r/f 2/2 to COVID PNA. ESR: 47 CRP : 166 D DIMER :14.95 Ferritin : 726 Procalcitonin: Xray chest : Blood cultures: Negative Completed Remdisivir 5 day course. Dexamethasone 6mg IVP daily for 10 days duoneb q6h, budesonide q12h Intialy was empirically on Cef and azithromycin.Currently switched to zosyn Intubated sedated on mechanical ventilation. ( On Versed, propfol, fentanyl, precedex ) On Levophed. On Eliquis 5 mg q12 h daily Gentle I.V Hydration with Normal saline @30 cc/hr Status: Acute (2) Decompensated heart failure: Decompensated heart failure with preserved ejection fraction: 2D echo: Normal left ventricular cavity size. Normal left ventricular systolic function. Left ventricular ejection fraction is estimated at 65 %. Grade I diastolic dysfunction (abnormal relaxation filling pattern), normal to mildly elevated filling pressures. Normal right ventricular size and systolic function. No significant valvular abnormality based on the study. Normal pulmonary artery pressure. intake output charting Daily weight K>4, MG >2 Currently he is Euvolemic with net negative : 12Ls Lasix 40 mg po daily has been stopped. Status: Acute (3) Acute kidney injury superimposed on CKD: SHUKRI on CKD stage III: Likely secondary to cardiorenal syndrome secondary to decompensated heart failure: Resolved Admission serum creatinine 2.9. Current serum creatinine at baseline. monitor BMP intake output charting renal ultrasound: Prominent right renal pelvis. No hydronephrosis.. Right renal cortical atrophy. Normal left kidney. No hydronephrosis. Status: Acute (4) COVID-19: Status: Acute (5) Respiratory failure: Status: Acute Qualifiers: Chronicity: acute Respiratory failure complication: hypoxia Qualified Code(s): J96.01 - Acute respiratory failure with hypoxia (6) A-fib: Currently rate controlled. Status: Acute (7) History of deep venous thrombosis (DVT) of distal vein of left lower extremity: On Eliquis. Status: Chronic (8) Mixed dyslipidemia: Status: Chronic (9) Chronic painful diabetic neuropathy: Status: Chronic (10) HTN (hypertension): Status: Chronic Qualifiers: Hypertension type: essential hypertension Qualified Code(s): I10 - Essential (primary) hypertension Additional A&P Information Recent UTI: E.coli on CX, ceftriaxone to cover check UA DVT ppx: Eliquis 5mg BID continued from home meds Full code Attestations Medical Necessity Statement*: Patient needs to be in hospital for the management of respiratory failure. 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
--- NOTE | 2020-12-16 15:41 | PC.RESP ---
RT Shift Note Frequent safety and respiratory rounds continue. Orders completed as indicated. Patient monitored pre and post treatments throughout shift. Patient [Did.] tolerate treatments appropriately. Condition [.DidNotChange]. Patient and/or fraud representative educated on respiratory treatment and medications. Patient and/or fraud representative [unable to comprehend]. Will continue to monitor patient progress.
[2020-12-16 17:15] LABS: ABG PH Result 7.19 (7.35-7.45); Arterial Blood Gas Hematocrit 41.1 % (42-52); Base Excess ABG -3.8 mmol/L (-2.0-2.0); Blood Gas Allen Test Pos; Blood Gas Sample Type Arterial; Carboxyhemoglobin 0.8 %THgb (0.4-20.1); HCO3 ABG 25.8 mmol/L (22-26); HGB O2 Sat 91.4 % (95-100); Ionized Calcium Level - ABG 1.2 mmol/L (1.1-1.4); Methemoglobin 0.8 % (0.4-1.5); Oxygen Saturation ABG 92.9; PO2 ABG 79.3 mmHg (80.0-100.0); Potassium Level - ABG 4.5 mmol/L (3.5-5.0); Total Hemoglobin 13.4 g/dL (14-18)
[2020-12-16 17:16] LABS: Alveolar-Arterial Oxygen Gradi 71.9 mmHg (5-10); Blood Gas Operator Identificat GD; Blood Gas Sample Site Radial, right; Oxygen Device VENT
[2020-12-16 17:17] LABS: ABG PCO2 68.3 mmHg (35-45)
[2020-12-16 18:01] LABS: Glucose Point of Care 206 mg/dL (70-110)
--- NOTE | 2020-12-16 19:16 | PM.ACPR ---
Acute Procedures Intubation: Time out performed: Yes Sedative: etomidate Mg given: 20 Paralytic: succinylcholine Mg given: 100 Laryngoscope: fiber optic video scope ET tube size: 8 ET tube uncuffed: Yes Tube secured depth (cm): 23 Tube secured location: lips Tube placement confirmation: visualized tube passing through cords, equal breath sounds bilaterally and color change noted Patient tolerated procedure: well Intubation complications: none
--- NOTE | 2020-12-16 19:17 | PM.ACPR ---
Acute Procedures Central Line Placement^: Right IJ: Time out performed: Yes Patient placed on monitor/pulse ox: Yes MD prep: mask, gown and gloves Central line prep: Chlorhexidine scrub and sterile drapes applied Local anesthesia used: lidocaine 1% Ultrasound used for placement: Yes Central line lumen inserted: triple Post procedure: sutured in place, good blood return, all ports aspirated, flushed, capped and sterile dressing applied Post procedure x-ray: tip of catheter in good position and no pneumothorax seen Patient tolerated procedure: well Complications: none
--- NOTE | 2020-12-16 20:33 | XRR_ITS ---
PROCEDURE INFORMATION: Exam: XR Chest Exam date and time: 12/16/2020 8:33 PM Age: 70 years old Clinical indication: Device placement; Other: Og; Additional info: Og placement TECHNIQUE: Imaging protocol: XR of the chest. Views: 1 view. COMPARISON: CR (CHEST, ) 12/16/2020 1:22 PM FINDINGS: Tubes, catheters and devices: Right central line terminates in the proximal right atrium. Endotracheal tube terminates in proper position above the tho. Enteric tube noted terminating in the proximal stomach. The side port projects in the region of the gastroesophageal junction. Lungs: Patulous diffuse consolidations throughout both lungs. Pleural spaces: Unremarkable. No pleural effusion. No pneumothorax. Heart/Mediastinum: Unremarkable. No cardiomegaly. Bones/joints: Visualized osseous structures are intact. XR/XR chest 1V portable [id number] IMPRESSION: Enteric tube terminates in the proximal stomach. Side port projects in the gastroesophageal junction region and would suggest 8 cm advancement for proper placement in the stomach.
[2020-12-16] MEDS: tamsulosin 0.4 mg Capsule PO (21:10)
[2020-12-16] MEDS: atorvastatin 40 mg Tablet 80 MG PO (21:10)
[2020-12-16] MEDS: gabapentin 300 mg Capsule 600 MG PO (21:10)
[2020-12-16] MEDS: insulin glargine 100 units/1 mL 10 UNIT SUBCUT (21:10)
[2020-12-16 21:38] LABS: ABG PCO2 51.3 mmHg (35-45); Alveolar-Arterial Oxygen Gradi 73.2 mmHg (5-10); Arterial Blood Gas Hematocrit 40.3 % (42-52); Base Excess ABG -2.2 mmol/L (-2.0-2.0); Blood Gas Allen Test Pos; Blood Gas Operator Identificat JB; Blood Gas Sample Site Brachial, right; Blood Gas Sample Type Arterial; Carboxyhemoglobin 0.8 %THgb (0.4-20.1); HCO3 ABG 24.9 mmol/L (22-26); HGB O2 Sat 95.6 % (95-100); Ionized Calcium Level - ABG 1.2 mmol/L (1.1-1.4); Methemoglobin 0.9 % (0.4-1.5); Oxygen Device VENT; Oxygen Saturation ABG 97.2; PO2 ABG 86.7 mmHg (80.0-100.0); Potassium Level - ABG 4.4 mmol/L (3.5-5.0); Total Hemoglobin 13.2 g/dL (14-18)
--- NOTE | 2020-12-16 22:25 | PC.NURSE ---
Versed running at 6 per doctors orders and at shift change. Continue care.
[2020-12-16] MEDS: propofol 1,000 MG/100 ML INJ 27.22 MG IV (23:22)
--- NOTE | 2020-12-16 23:23 | PC.NURSE ---
Propofol running at 50mcg/kg/min at shift change
[2020-12-16] MEDS: dexmedetomidine 400 MCG in sodium chloride 0.9% (100 ml) 100 ML 9.44 MCG IV (23:25)
[2020-12-17] VITALS (50 sets, daily range): BP systolic 80–104; BP diastolic 56–66; PULSE 52–114; RESP 24–28; TEMP 36; O2SAT 87–97
--- NOTE | 2020-12-17 00:32 | PC.NURSE ---
Reddened open area noticed to scrotum
[2020-12-17] MEDS: ipratropium-albuterol 3 mL Neb INHALATION ×3 (02:59→14:28)
[2020-12-17] MEDS: propofol 1,000 MG/100 ML INJ 24.49 MG IV (03:09)
[2020-12-17 04:04] LABS: Basophils % 0.1 %; Eosinophils % 0.1 %; Hematocrit 39.1 % (42.0-52.0); Hemoglobin 12.2 g/dL (11.7-16.6); Lymphocytes # 0.4 10^3/uL (0.8-4.8); Lymphocytes % 3.5 %; Mean Corpuscular HGB Conc 31.2 g/dL (30.0-36.0); Mean Corpuscular Hemoglobin 27.4 pg (28.0-34.0); Mean Corpuscular Volume 87.7 fL (80-94); Mean Platelet Volume 9.8 fL (7.4-10.4); Monocytes # 0.4 10^3/uL (0.2-0.9); Monocytes % 3.3 %; Neutrophils # 11.78 10^3/uL (1.8-7.7); Neutrophils % 92.7 %; Nucleated Red Blood Cells % 0 %; Platelet Count 204 10^3/cmm (130-400); Red Blood Count 4.46 10^6/uL (4.1-5.3); White Blood Count 12.7 10^3/uL (4.0-10.0)
[2020-12-17] MEDS: dexamethasone 4 mg/mL INJ 6 MG IVP (04:32)
[2020-12-17 04:38] LABS: Anion Gap 15.5 (5-19); Blood Urea Nitrogen 26 mg/dL (8-23); Carbon Dioxide 24 mmol/L (22-29); Chloride 97 mmol/L (98-107); Glucose 207 mg/dL (65-115); Magnesium 2.4 mg/dL (1.7-2.3); Osmolality Calculated 285 mOsm/kg (285-295); Potassium 4.5 mmol/L (3.5-5.1); Sodium 132 mmol/L (136-145)
[2020-12-17 05:02] LABS: ABG PCO2 58.5 mmHg (35-45); ABG PH Result 7.26 (7.35-7.45); Alveolar-Arterial Oxygen Gradi 55.2 mmHg (5-10); Arterial Blood Gas Hematocrit 41.3 % (42-52); Base Excess ABG -2.2 mmol/L (-2.0-2.0); Blood Gas Allen Test Pos; Blood Gas Operator Identificat JB; Blood Gas Sample Site Brachial, right; Blood Gas Sample Type Arterial; Carboxyhemoglobin 0.8 %THgb (0.4-20.1); HGB O2 Sat 93.5 % (95-100); Ionized Calcium Level - ABG 1.2 mmol/L (1.1-1.4); Methemoglobin 0.8 % (0.4-1.5); Oxygen Device VENT; PO2 ABG 74.8 mmHg (80.0-100.0); Potassium Level - ABG 4.3 mmol/L (3.5-5.0); Total Hemoglobin 13.5 g/dL (14-18)
--- NOTE | 2020-12-17 05:56 | PC.NURSE ---
Shift Note Frequent safety and comfort rounds continue. Orders and/or nursing care completed as indicated. Patient monitored for response to intervention and treatment(s). Education provided includes[pain management, respiratory effort]. Patient and/or off premise service representative Reinforcement needed. Will continue to monitor.
[2020-12-17 06:04] LABS: Glucose Point of Care 213 mg/dL (70-110)
[2020-12-17] MEDS: piperacillin-tazobactam 3.375 GM in sodium chloride 0.9% (plus) 50 ML IV ×3 (09:29→22:54)
[2020-12-17] MEDS: sertraline 100 mg Tablet PO (09:29)
[2020-12-17] MEDS: apixaban 5 mg Tablet PO ×2 (09:29→20:29)
[2020-12-17] MEDS: finasteride 5 mg Tablet PO (09:29)
[2020-12-17] MEDS: nystatin powder 15 gm Btl 1 APPLIC TOPICAL ×2 (09:31→17:11)
[2020-12-17] MEDS: budesonide 0.5 mg/2 mL Neb INHALATION (09:31)
--- NOTE | 2020-12-17 10:07 | PC.SOCIAL ---
IMM NOT GIVEN IMM update not given due to pt intubated at this time.
--- NOTE | 2020-12-17 10:53 | P.CONIM_ITS ---
Providers/Reason For Consult Consulting Physician/Specialty*: Pulmonary and critical care medicine Reason for Consult*: ARDS secondary to SARS-CoV-2 pneumonia Attending Physician: Ranulfo Rojas MD Primary Care Provider: BARRINGTON Khan History of Present Illness History of Present Illness Percy Coronado is a 70 year old male who presented to the hospital on December 10 after being diagnosed with COVID-19 on December 07. The patient had received a monoclonal antibody infusion. On admission to the hospital, his oxygen saturation was in the low 80s and required nonrebreather mask. His past medical history includes A. fib on chronic anticoagulation with apixaban, prior history of DVT, chronic kidney disease, type 2 diabetes mellitus. Background information: I have reviewed the patient's previous CT scan of the chest that was obtained in June 2020 and May 2019. The patient has bilateral peripheral reticulation. There is also some degree of traction bronchiectasis. He has a large hiatal hernia and dilated esophagus. He had never been previously diagnosed with any interstitial lung disease. No previous pulmonary function test had been available in the past. His echocardiogram from December 12 revealed an ejection fraction of 65% with grade 1 diastolic dysfunction. The estimated RVSP was 11 mmHg. No significant valvular abnormalities were identified. The initial admission chest x-ray revealed interstitial opacity without any acute findings. He was started on remdesivir, dexamethasone and empiric ceftriaxone and azithromycin. From the review of the chart, it appears that the patient had been slowly getting better but on December 16 overnight, the patient had an aspiration event leading to precipitation of respiratory failure and he ended up getting intubated. His chest x-ray from December 15 did reveal bilateral pulmonary infiltrate with consolidation in the left lower lobe. The patient had either been having worsening aspiration pneumonia or progression of COVID-19. Chest x-ray following intubation on 12/16 revealed bilateral infiltrate without any pleural effusion. The ET tube and the central line were optimally placed. The patient was seen and examined in the intensive care unit. He is intubated and sedated. He is not responsive. The patient is on volume control mechanical ventilation following lung protective strategy with an FiO2 of 75% that was able to bring down to 70%. His latest blood gas showed a pH of 7.26, PCO2 of 59 and PO2 of 75 on 80% oxygen. His blood culture from December 10 grew backslash species 1 out of 3 bottles which is likely contaminant. Sputum Gram stain from yesterday showed a few budding and gram-positive cocci in pairs chains and clusters. Review of Systems Narrative: Unable to assess Meds/Allergies Home Medications and Allergies Home Medications Medication Instructions Recorded Confirmed Last Taken Type blood sugar diagnostic #10 each 06/24/19 12/12/20 Unknown History apixaban 5 mg tablet 5 mg PO Q12H #60 tab 09/11/20 12/12/20 11/29/20 Rx cholecalciferol (vitamin D3) 125 125 mcg PO DAILY #30 cap 09/11/20 12/12/20 11/29/20 Rx mcg (5,000 unit) capsule famotidine 20 mg tablet 20 mg PO BID #60 tab 09/11/20 12/12/20 11/29/20 Rx finasteride 5 mg tablet 5 mg PO DAILY #30 tab 09/11/20 12/12/20 11/28/20 Rx insulin degludec 100 unit/mL (3 75 unit SUBCUT DAILY #24 ml 09/11/20 12/12/20 11/29/20 Rx mL) subcutaneous pen liraglutide 0.6 mg/0.1 mL (18 mg/3 1.8 mg SUBCUT DAILY #9 ml 09/11/20 12/12/20 11/29/20 Rx mL) subcutaneous pen injector losartan 100 mg tablet 100 mg PO DAILY #30 tab 09/11/20 12/12/20 11/29/20 Rx sertraline 100 mg tablet 100 mg PO DAILY #30 tab 09/11/20 12/12/20 11/29/20 Rx pen needle, diabetic 33 gauge x #100 ea 11/20/20 12/12/20 Unknown Rx / gabapentin 600 mg PO BEDTIME PRN 11/29/20 12/12/20 11/28/20 History hydroxyzine pamoate 25 mg PO BEDTIME PRN 11/29/20 12/12/20 11/28/20 History levocetirizine 5 mg PO DAILY PRN 11/29/20 12/12/20 Unknown History rosuvastatin 40 mg PO BEDTIME 11/29/20 12/12/20 11/28/20 History tamsulosin 0.4 mg PO BEDTIME 11/29/20 12/12/20 11/28/20 History acetaminophen [Tylenol Extra 500 - 1,000 mg PO PRN 12/12/20 12/12/20 Unknown History Strength] ondansetron 4 mg PO Q6H PRN 12/12/20 12/12/20 Unknown History Allergies Allergy/AdvReac Type Severity Reaction Status Date / Time procaine [From Novocain] Allergy parenteral Verified 12/12/20 08:12 Current Medications Current Medications Generic Name Dose Route Start Last Admin Trade Name Freq PRN Reason Stop Dose Admin Albuterol/Ipratropium 3 ml 12/11/20 21:00 12/17/20 09:31 Ipratropium-Albuterol 3 Ml Neb INHALATION 3 ml Q6H.RESPIRATORY BETTYE Administration Apixaban 5 mg 12/11/20 09:00 12/17/20 09:29 Apixaban 5 Mg Tablet PO 5 mg BID@0900,2100 BETTYE Administration Atorvastatin Calcium 80 mg 12/11/20 21:00 12/16/20 21:10 Atorvastatin 40 Mg Tablet PO 80 mg BEDTIME BETTYE Administration Budesonide 0.5 mg 12/11/20 08:00 12/17/20 09:31 Budesonide 0.5 Mg/2 Ml Neb INHALATION 0.5 mg BID.RESPIRATORY BETTYE Administration Dexamethasone 6 mg 12/11/20 05:30 12/17/20 04:32 Dexamethasone 4 Mg/Ml Inj IVP 6 mg Q24H BETTYE Administration Finasteride 5 mg 12/11/20 09:00 12/17/20 09:29 Finasteride 5 Mg Tablet PO 5 mg DAILY BETTYE Administration Gabapentin 600 mg 12/11/20 21:00 12/16/20 21:10 Gabapentin 300 Mg Capsule PO 600 mg BEDTIME BETTYE Administration Sodium Chloride 1,000 mls @ 30 mls/hr 12/16/20 10:45 12/16/20 11:19 Sodium Chloride 0.9% IV 30 mls/hr .Q24H BETTYE Administration Dexmedetomidine HCl 400 mcg/ 104 mls @ 0 mls/hr 12/16/20 11:45 12/17/20 04:17 Sodium Chloride IV 0 mcg/kg/hr .Q0M BETTYE 0 mls/hr Titration Protocol Per Protocol Propofol 1,000 mg in 100 mls @ 0 mls/hr 12/16/20 12:30 12/17/20 09:13 Diprivan IV 20 mcg/kg/min .Q0M BETTYE 10.89 mls/hr Titration Protocol Per Protocol Fentanyl 1,000 mcg/ Sodium 100 mls @ 0 mls/hr 12/16/20 12:30 12/17/20 09:14 Chloride IV Infused .Q0M BETTYE Titration Protocol Per Protocol Midazolam HCl 100 mg/ Sodium 100 mls @ 0 mls/hr 12/16/20 12:30 12/17/20 09:14 Chloride IV 2 mg/hr .Q0M BETTYE 2 mls/hr Titration Protocol Per Protocol Norepinephrine Bitartrate 4 mg 254 mls @ 0 mls/hr 12/16/20 13:45 12/17/20 09:13 / Dextrose IV 1.5 mcg/min .Q0M BETTYE 5.72 mls/hr Titration Protocol Per Protocol Piperacillin Sod/Tazobactam 50 mls @ 12.5 mls/hr 12/16/20 15:00 12/17/20 09:29 Sod 3.375 gm/ Sodium Chloride IV 12.5 mls/hr Q8H BETTYE Administration Protocol Insulin Aspart 0 unit 12/14/20 09:00 12/17/20 09:30 Insulin Aspart 100 Unit/1 Ml SUBCUT 6 unit WM&BEDTIME BETTYE Administration Protocol Insulin Glargine 10 unit 12/16/20 21:00 12/16/20 21:10 Insulin Glargine 100 Units/1 Ml SUBCUT 10 unit BEDTIME BETTYE Administration Metoprolol Tartrate 12.5 mg 12/13/20 21:00 12/16/20 08:55 Metoprolol Tartrate 25 Mg Tablet PO 12.5 mg BID@0900,2100 BETTYE Administration Nystatin 1 applic 12/17/20 09:00 12/17/20 09:31 Nystatin Powder 15 Gm Btl TOPICAL 1 applic BID BETTYE Administration Ondansetron HCl 4 mg 12/11/20 03:54 12/16/20 05:16 Ondansetron 2 Mg/Ml Sdv 2 Ml IVP 4 mg Q6H PRN Administration NAUSEA AND VOMITING Sertraline HCl 100 mg 12/11/20 09:00 12/17/20 09:29 Sertraline 100 Mg Tablet PO 100 mg DAILY BETTYE Administration Tamsulosin HCl 0.4 mg 12/11/20 21:00 12/16/20 21:10 Tamsulosin 0.4 Mg Capsule PO 0.4 mg BEDTIME BETTYE Administration PFSH Acute PFSH: Medical History Anxiety and depression BPH loc w urin obs/LUTS Chronic kidney disease (CKD) stage 3 Chronic painful diabetic neuropathy Controlled diabetes mellitus with hyperglycemia, with long-term current use of insulin Distended bladder Enlarged prostate Environmental and seasonal allergies Gastric reflux History of deep venous thrombosis (DVT) of distal vein of left lower extremity HTN (hypertension) Incomplete bladder emptying Mixed dyslipidemia Osteoarthritis of knee, unspecified Right Overflow incontinence Urinary retention Vitamin D deficiency, unspecified Surgical History History of partial surgical removal of colon (~11/2014) For colon cancer Hx of colonoscopy 2014 Family History Mother Cancer Lung Father Nicotine addiction Other Hypertension Social History Second hand smoke exposure: No Smoking risk assessment/counseling performed?: No Alcohol intake: former Desire information about alcohol rehabilitation?: No Counseling given: No Desire information about substance/drug rehabilitation?: No Counseling given: No Adopted: No Caregiver/support person: No Lives independently: Yes Household members: none Housing: House Marital status: / service: No Current occupational status: retired History of recent travel: No Current gender identity: Male Vitals/I&O/Wt Last Vital Signs Temp 98.0 F 12/16/20 12:00 Pulse 53 L 12/17/20 09:40 Resp 26 H 12/17/20 10:00 BP 91/58 12/17/20 09:30 Pulse Ox 94 12/17/20 10:00 12/16/20 12/17/20 12/17/20 22:59 06:59 14:59 Intake Total 180.360 / 218.345 609.741 / 828.086 248.247 / 248.247 Output Total 600 / 600 Balance 180.360 / 218.345 9.741 / 228.086 248.247 / 248.247 Weight last 48 hrs Weight 184 lb 5 oz Physical Exam Narrative: EXAM NARRATIVE: General: The patient is intubated and sedated Neck: No JVD Respiratory: Auscultation: Crackles at bilateral lung bases Cardiovascular: Regular rate and rhythm, S1-S2 present, no murmur, no peripheral edema. Abdomen: Soft, nondistended, positive bowel sound Skin: No rash Neuro: Patient is sedated, unable to assess Urinary Catheter Management^: Obrien: Cath Placed During This Visit: yes Reason for Continuing Indwelling Catheter: Accurate Measurement of Urinary Output in Critically Ill Patients Urinary Catheter Date of Insertion: 12/11/20 Urinary Catheter Time of Insertion: 06:05 Data Micro: Micro: Microbiology 12/16/20 13:19 Gram Stain - Final Sputum - Expector ated Sputum 12/10/20 19:30 Blood Culture - Fi nal Blood Bacillus sp not b. anthracis Other Data: Attestation for Other Data: I personally reviewed and interpreted the following: Other data: I have reviewed the patient's laboratory, microbiologic and neurologic data. Please see the HPI for detail. The creatinine is normalized since hospital admission. Mild leukocytosis. The blood sugar is running typically higher than 200. A&P Assessment and plan (1) COVID-19: This is a 68-year-old gentleman who was admitted to the hospital on December 10 after being diagnosed with COVID-19 on December 07. Patient has received remdesivir. Currently he is on dexamethasone. Based on the chart review, it appears that the patient's respiratory status had been slowly getting better however he likely suffered from an episode of aspiration on December 16 leading to acute worsening of his respiratory status requiring intubation and mechanical ventilation. His inflammatory marker from December 16 revealed a CRP of 166. Status: Acute (2) ARDS (adult respiratory distress syndrome): The patient has ARDS. He has bilateral diffuse infiltrate. Even before the obvious aspiration event, the patient had been developing bilateral infiltrate including left lower lobe consolidative lesions. The patient likely has SARS-CoV-2 pneumonia in addition to the aspiration. The patient is currently intubated and sedated. He is on Versed, fentanyl, Precedex and propofol. I am going to discontinue the Versed and Precedex. We should be able to manage him with fentanyl and propofol. The patient is on volume control mechanical ventilation. His arterial blood gas revealed mild respiratory acidosis. I am okay with a pH of 7.26 and PCO2 less than 60. I have come down on the oxygen to 70%. I believe I will be able to go down further. According to the chart, the patient carries a diagnosis of heart failure with preserved ejection fraction. However, there is no definitive evidence of that based on the echocardiogram. There is no pleural effusion on the chest x-ray either. The patient is currently on Zosyn. He is on apixaban and I started GI prophylaxis. Status: Acute (3) Aspiration pneumonia: We will follow up on the endotracheal aspirate culture. I believe he is adequately covered at this point. Status: Acute (4) A-fib: The patient has a history of A. fib. He is currently fully anticoagulated with apixaban. Status: Acute (5) History of deep venous thrombosis (DVT) of distal vein of left lower extremity: The patient has a previous history of left lower extremity DVT. He is receiving apixaban. Status: Chronic (6) Chronic kidney disease (CKD): The patient carries a diagnosis of a stage III to CKD. His creatinine has normalized 2.9. I am going to discontinue the standing IV fluid as the patient will be getting them through multiple medications intravenously anyway. Additionally, going to start the patient on trickle feed as well as free water flush. Status: Acute Qualifiers: Chronic kidney disease stage: stage 3 (moderate) Chronic kidney disease stage 3 subtype: stage 3a (GFR 45-59) Qualified Code(s): N18.31 - Chronic kidney disease, stage 3a (7) Hyperglycemia: The patient's blood sugar is consistently more than 180. I am going to increase the Lantus to 18 units and sliding scale coverage every 6 hours. Status: Acute Coding Level of Care Code Acute Cost Reduction Engineer for [facility] Diagnoses COVID-19 U07.1 ARDS (adult respiratory distress syndrome) J80 Aspiration pneumonia J69.0 A-fib I48.91 History of deep venous thrombosis (DVT) of distal vein of left lower extremity Z86.718 Chronic kidney disease (CKD) N18.31 Chronic kidney disease stage: stage 3 (moderate) Chronic kidney disease stage 3 subtype: stage 3a (GFR 45-59) Hyperglycemia R73.9 Time Spent (min) 50
[2020-12-17] MEDS: propofol 1,000 MG/100 ML INJ 10.89 MG IV (11:01)
--- NOTE | 2020-12-17 11:19 | P.PN_ITS ---
Subjective Subjective: Interval history: Patient was seen and examined this morning, currently he is intubated, sedated and on mechanical ventilation. Am abg and labs have been reviewed. Vitals have been reviewed. Medications: Reviewed: Yes Vitals/I&O/Wt Last Vital Signs Temp 98.0 F 12/16/20 12:00 Pulse 53 L 12/17/20 09:40 Resp 26 H 12/17/20 10:00 BP 91/58 12/17/20 09:30 Pulse Ox 94 12/17/20 10:00 12/16/20 12/17/20 12/17/20 22:59 06:59 14:59 Intake Total 180.360 / 218.345 609.741 / 828.086 259.151 / 259.151 Output Total 600 / 600 Balance 180.360 / 218.345 9.741 / 228.086 259.151 / 259.151 Weight last 48 hrs Weight 83.603 kg Physical Exam Const: COMMON NORMALS: patient oriented x3 HENMT: COMMON NORMALS: normocephalic and atraumatic HEAD & SCALP: normocephalic and atraumatic Resp: OTHER: Bilateral crackles in both lung rendon Cardio: COMMON NORMALS: regular rate, regular rhythm, S1 normal heart sound present, S2 normal heart sound present, No gallops present (Cardio), No murmurs present (Cardio), No rub (Cardio) and Peripheral pulses 2+ throughout RATE: regular rate RHYTHM: regular rhythm HEART SOUNDS: S1 normal heart sound present and S2 normal heart sound present PERIPHERAL PULSES: Peripheral pulses 2+ throughout GI: COMMON NORMALS: Normal to inspection, nondistended, normoactive bowel sounds present, Soft to palpation, non-tender, No hepatosplenomegaly present and no masses AUSCULTATION: Yes normoactive bowel sounds PALPATION: Yes Soft to palpation and Yes No hepatosplenomegaly present RECTAL EXAM: Yes deferred Extremity: COMMON NORMALS: no clubbing, cyanosis or edema and no pedal edema Neuro: COMMON NORMALS: patient oriented x3 Urinary Catheter Management^: Obrien: Cath Placed During This Visit: yes Reason for Continuing Indwelling Catheter: Accurate Measurement of Urinary Output in Critically Ill Patients Urinary Catheter Date of Insertion: 12/11/20 Urinary Catheter Time of Insertion: 06:05 Data : 12/17/20 03:42 12/17/20 03:42 Micro: Microbiology 12/16/20 13:19 Gram Stain - Final Sputum - Expectorated Sputum 12/10/20 19:30 Blood Culture - Final Blood Bacillus sp not b. anthracis A&P Assessment and plan (1) Respiratory failure with hypoxia: Ac hypoxic r/f 2/2 Severe ARDS 2/2 COVID PNA. ESR: 47 CRP : 166 D DIMER :14.95 Ferritin : 726 Procalcitonin:0.19 ABG :Ph :7.26, pco2: 58, po2:74, FIO2: 80 % P/F: 74/.8 :92 Xray chest : Moderate bilateral pulmonary opacities, increased, compatible with multifocal pneumonia. Blood cultures: Negative Completed Remdisivir 5 day course. Dexamethasone 6mg IVP daily for 10 days duoneb q6h, budesonide q12h Intialy was empirically on Cef and azithromycin.Currently switched to zosyn Intubated sedated on mechanical ventilation. ( On Versed, propfol, fentanyl, precedex ) On Levophed. On Eliquis 5 mg q12 h daily. Status: Acute (2) ARDS (adult respiratory distress syndrome): Status: Acute (3) Decompensated heart failure: Decompensated heart failure with preserved ejection fraction: 2D echo: Normal left ventricular cavity size. Normal left ventricular systolic function. Left ventricular ejection fraction is estimated at 65 %. Grade I diastolic dysfunction (abnormal relaxation filling pattern), normal to mildly elevated filling pressures. Normal right ventricular size and systolic function. No significant valvular abnormality based on the study. Normal pulmonary artery pressure. intake output charting Daily weight K>4, MG >2 Currently he is Euvolemic with net negative : 12Ls Lasix 40 mg po daily has been stopped. Status: Acute (4) Acute kidney injury superimposed on CKD: SHUKRI on CKD stage III: Likely secondary to cardiorenal syndrome secondary to decompensated heart failure: Resolved Admission serum creatinine 2.9. Current serum creatinine at baseline. monitor BMP intake output charting renal ultrasound: Prominent right renal pelvis. No hydronephrosis.. Right renal cortical atrophy. Normal left kidney. No hydronephrosis. Status: Acute (5) COVID-19: Status: Acute (6) Respiratory failure: Status: Acute Qualifiers: Chronicity: acute Respiratory failure complication: hypoxia Qualified Code(s): J96.01 - Acute respiratory failure with hypoxia (7) A-fib: Currently rate controlled. Status: Acute (8) History of deep venous thrombosis (DVT) of distal vein of left lower extremity: On Eliquis. Status: Chronic (9) Mixed dyslipidemia: Status: Chronic (10) Chronic painful diabetic neuropathy: Status: Chronic (11) HTN (hypertension): Status: Chronic Qualifiers: Hypertension type: essential hypertension Qualified Code(s): I10 - Essential (primary) hypertension Additional A&P Information Recent UTI: E.coli on CX, ceftriaxone to cover check UA DVT ppx: Eliquis 5mg BID continued from home meds Full code Attestations Medical Necessity Statement*: Patient needs to be in hospital for the man agement of Respiratory Failure. Coding Level of Care Code Acute Manager Electronic for [facility] Fwd Diagnoses Respiratory failure with hypoxia J96.91 ARDS (adult respiratory distress syndrome) J80 Decompensated heart failure I50.9 Acute kidney injury superimposed on CKD N17.9; N18.9 COVID-19 U07.1 Respiratory failure J96.01 Chronicity: acute Respiratory failure complication: hypoxia A-fib I48.91 History of deep venous thrombosis (DVT) of distal vein of left lower extremity Z86.718 Mixed dyslipidemia E78.2 Chronic painful diabetic neuropathy E11.40 HTN (hypertension) I10 Hypertension type: essential hypertension
[2020-12-17 11:32] LABS: Glucose Point of Care 333 mg/dL (70-110)
--- NOTE | 2020-12-17 14:31 | PC.RESP ---
RT Shift Note Frequent safety and respiratory rounds continue. Orders completed as indicated. Patient monitored pre and post treatments throughout shift. Patient [Did.] tolerate treatments appropriately. Condition [.DidNotChange]. Patient and/or pharmaceutical representative educated on respiratory treatment and medications. Patient and/or pharmaceutical representative [unable to comprehend]. Will continue to monitor patient progress.
[2020-12-17 17:50] LABS: Glucose Point of Care 280 mg/dL (70-110)
--- NOTE | 2020-12-17 18:13 | PC.NURSE ---
Tube feeds started
[2020-12-17] MEDS: insulin glargine 100 units/1 mL 18 UNIT SUBCUT (20:29)
[2020-12-17] MEDS: tamsulosin 0.4 mg Capsule PO (20:29)
[2020-12-17] MEDS: atorvastatin 40 mg Tablet 80 MG PO (20:29)
[2020-12-17] MEDS: famotidine 20 mg/2 mL INJ IVP (22:54)
[2020-12-17] MEDS: propofol 1,000 MG/100 ML INJ 13.61 MG IV (23:45)
[2020-12-18] VITALS (63 sets, daily range): BP systolic 83–113; BP diastolic 58–81; PULSE 83–133; RESP 28–31; TEMP 36.7–38.3; O2SAT 87–92; BMI 25.4
[2020-12-18] MEDS: ipratropium-albuterol 3 mL Neb INHALATION ×5 (02:26→20:07)
[2020-12-18] MEDS: budesonide 0.5 mg/2 mL Neb INHALATION ×3 (02:34→20:06)
[2020-12-18 03:30] LABS: Basophils % 0.2 %; Eosinophils % 0.1 %; Hematocrit 38.9 % (42.0-52.0); Lymphocytes # 0.2 10^3/uL (0.8-4.8); Lymphocytes % 1.5 %; Mean Corpuscular HGB Conc 30.8 g/dL (30.0-36.0); Mean Corpuscular Hemoglobin 26.7 pg (28.0-34.0); Mean Corpuscular Volume 86.4 fL (80-94); Mean Platelet Volume 9.9 fL (7.4-10.4); Monocytes # 0.4 10^3/uL (0.2-0.9); Monocytes % 3.2 %; Neutrophils # 11.64 10^3/uL (1.8-7.7); Neutrophils % 94.3 %; Nucleated Red Blood Cells % 0 %; Platelet Count 218 10^3/cmm (130-400); Red Cell Distribution Width 14.2 % (12.1-15.1); White Blood Count 12.3 10^3/uL (4.0-10.0)
[2020-12-18 04:01] LABS: Alanine Aminotransferase 32 U/L (0-41); Albumin Level 2.4 g/dL (3.5-5.2); Alkaline Phosphatase 120 IU/L (40-130); Anion Gap 14.2 (5-19); Aspartate Amino Transferase 51 U/L (0-40); Blood Urea Nitrogen 34 mg/dL (8-23); Carbon Dioxide 24 mmol/L (22-29); Chloride 99 mmol/L (98-107); Globulin 3.2 g/dL (1.3-4.6); Glucose 355 mg/dL (65-115); Magnesium 2.6 mg/dL (1.7-2.3); Osmolality Calculated 298 mOsm/kg (285-295); Phosphorus 4.4 mg/dL (2.5-4.5); Potassium 4.2 mmol/L (3.5-5.1); Sodium 133 mmol/L (136-145); Total Bilirubin 0.8 mg/dL (0.15-1.2); Total Protein 5.6 g/dL (6.6-8.7)
[2020-12-18 04:45] LABS: ABG PCO2 46.8 mmHg (35-45); ABG PH Result 7.33 (7.35-7.45); Alveolar-Arterial Oxygen Gradi 49.7 mmHg (5-10); Arterial Blood Gas Hematocrit 41.8 % (42-52); Base Excess ABG -1.5 mmol/L (-2.0-2.0); Blood Gas Operator Identificat JB; Blood Gas Sample Site Brachial, right; Blood Gas Sample Type Arterial; Carboxyhemoglobin 0.8 %THgb (0.4-20.1); HCO3 ABG 24.8 mmol/L (22-26); HGB O2 Sat 89.4 % (95-100); Ionized Calcium Level - ABG 1.2 mmol/L (1.1-1.4); Methemoglobin 0.7 % (0.4-1.5); Oxygen Device VENT; Oxygen Saturation ABG 90.8; PO2 ABG 58.7 mmHg (80.0-100.0); Total Hemoglobin 13.6 g/dL (14-18)
[2020-12-18] MEDS: dexamethasone 4 mg/mL INJ 6 MG IVP (05:38)
--- NOTE | 2020-12-18 07:07 | XRR_ITS ---
PROCEDURE INFORMATION: Exam: XR Chest Exam date and time: 12/18/2020 7:07 AM Age: 70 years old Clinical indication: Condition or disease; Lung condition and disease; Pneumonia TECHNIQUE: Imaging protocol: XR of the chest. Views: 1 view. COMPARISON: CR (CHEST, ) 12/16/2020 8:38 PM FINDINGS: Tubes, catheters and devices: Endotracheal tube projects above the level of the tho. NG tube terminates in the stomach. Right IJ catheter tip projects over the right atrium. Lungs: Multifocal bilateral airspace opacities noted, slightly decreased. Findings may be seen with pneumonia. Pleural spaces: Unremarkable. No pleural effusion. No pneumothorax. Heart/Mediastinum: No cardiomegaly. Bones/joints: No acute fracture. XR/XR chest 1V portable [id number] IMPRESSION: Multifocal bilateral airspace opacities noted, slightly decreased. Findings may be seen with pneumonia.
[2020-12-18] MEDS: propofol 1,000 MG/100 ML INJ 13.61 MG IV ×2 (07:24→09:20)
--- NOTE | 2020-12-18 07:41 | PC.NURSE ---
Shift Note Frequent safety and comfort rounds continue. Orders and/or nursing care completed as indicated. Patient monitored for response to intervention and treatment(s). Education provided includes medication and equipment used such as iv pump, feeding pump, and telemetry. Patient was unable to comprehend teaching and will need further reinforcement due to being intubated and sedated at this time. Right AC IV site is saline locked at this time. Right IJ central line has Levophed infusing @ 2mcg/min, Fentanyl infusing @ 125mcg/hr, Propofol infusing @ 25mcg/kg/min. Vent settings are as follows; Peep-10, FiO2-70%, and Rate-28 bpm. Obrien catheter drained 550 mls of dark yellow urine with sediment overnight. OG tube has Glucerna 1.2 running at 15 mls/hr, residuals were 5 mls when checked, patient tolerating tube feeding well at this time. Patient has bilateral soft wrist restraints for attempting extubation. Restraints were released and reapplied per order every 2 hours. Patient has wounds to the posterior butt-covered with dressing and lower groin-open to air. Will continue to monitor.
--- NOTE | 2020-12-18 09:24 | PC.NURSE ---
Pt is opening his eyes when his name is said.
[2020-12-18 09:31] LABS: Glucose Point of Care 393 mg/dL (70-110)
--- NOTE | 2020-12-18 09:56 | PC.CHAP ---
Pastoral Care Encounter/Spiritual Assessment Type of Contact [] Declined director facilities maintenance visit [] Patient/Family/Request visit [] Outpatient visit [] Follow-up visit [] Physician referral [] Code/Alert [x] Routine visit [] Staff referral [] Actively dying [] Patient sleeping [] Family support [] [] Out of room [] Palliative care [] [] Receiving care in room [] Pre-surgical visit [] Trauma [] Long length of stay [x] ICU visit [] Other: Relational/Emotional Strength [] Patient feels connected with others/family/visitors/staff [] Distress [] Loneliness/isolation [] Abandonment Spirituality of Patient [] Person of Pamela [] Attends Roman Catholic of their Pamela [] Believes in Prayer [] Reads Bible or Congregational materials [] There are Spiritual issues to be addressed External Auditor Interventions [x] Prayer [] Active listening [] Non-anxious presence [] Spiritual/emotional support [] Crisis/trauma care [] Spiritual counseling [] Bereavement support [] Provided bereavement packet [] Provided Bible/devotional materials [] Provided toy/stuffed animal, coloring book to patient or family member [] Provided Communion [] Anointing/[place] [] Salvation [x] Completed spiritual assessment [] Other: Impact on Illness or Injury [] Angry [] Fearful [] Anxious [] Often cries [] Exhaustion [] Unable to work [] Unable to attend latter day [] Unable to walk/stand [] Unable to read [] Unable to drive [] Unable to eat/drink [] Unable to sleep [] Unable to be with family [] Patient intubated [] Other: Summary Time spent with patient
[2020-12-18] MEDS: finasteride 5 mg Tablet PO (10:12)
[2020-12-18] MEDS: apixaban 5 mg Tablet PO ×2 (10:12→20:15)
[2020-12-18] MEDS: sertraline 50 mg Tablet PO (10:12)
[2020-12-18] MEDS: piperacillin-tazobactam 3.375 GM in sodium chloride 0.9% (plus) 100 ML IV ×3 (10:12→22:44)
[2020-12-18] MEDS: nystatin powder 15 gm Btl 1 APPLIC TOPICAL ×2 (10:13→17:55)
[2020-12-18 12:41] LABS: Glucose Point of Care 463 mg/dL (70-110)
[2020-12-18] MEDS: famotidine 20 mg/2 mL INJ IVP ×2 (13:17→22:52)
[2020-12-18 13:22] LABS: Lactic Sepsis W/Reflex 2.4 mmol/L (0.5-2.2)
--- NOTE | 2020-12-18 14:00 | PC.NURSE ---
SEdation vacation done. Pt was able to open and close his eyes on command. Unable to follow instructions any further. Very difficult to get him back sedated and comfortable. HR in 110's and 02 sat 88. Using assessory muscle used. Propofol increased to 50mcg and Dr. Caceres states that it is ok to increase Fentanyl to 150.
--- NOTE | 2020-12-18 14:28 | PC.NURSE ---
Let Dr. Caceres know that pt BG was over 400. No new orders at this time.
[2020-12-18 14:46] LABS: Reflex Lactate Order REFLEX LACTIC ORDERD
[2020-12-18] MEDS: propofol 1,000 MG/100 ML INJ 27.22 MG IV ×3 (15:00→22:43)
--- NOTE | 2020-12-18 16:02 | PC.NURSE ---
Pt resting quietly.
--- NOTE | 2020-12-18 16:47 | PM.PN ---
Subjective Subjective: Interval history: Percy Coronado 68-year-old male past medical history A. fib on chronic anticoagulation with apixaban, prior history of DVT, CKD, type 2 diabetes mellitus presented to hospital on 12/10/2020 after being diagnosed with COVID-19 on November 27. Patient received monoclonal antibody infusion. Echo from December 12 showed EF 65% and grade 1 diastolic dysfunction with RVSP 11. No significant valvular abnormalities. Upon admission patient was started on remdesivir, dexamethasone and empiric Rocephin and azithromycin-patient gradually was getting better but on 12/16/2020 overnight he had aspiration event leading to presentation of respiratory failure and getting intubated and patient was moved to ICU. Chest x-ray on December 15, 2020 showed bilateral pulmonary infiltrate with consolidation in the left lower lobe. Also review of previous CT chest in June 2020 in May 2019 showed bilateral peripheral reticulation, some degree of traction bronchiectasis, large hiatal hernia and dilated esophagus. Patient was never diagnosed with any interstitial lung disease nor did he have pulmonary function test in the past. Patient seen in bedside today morning He is intubated and sedated with fentanyl 125, propofol 25 and Levophed 2 Patient is on pressure support 29/PEEP of 12 and FiO2 75% and respiratory 28 Labs and imaging reviewed Medications: Reviewed: Yes Vitals/I&O/Wt Last Vital Signs Temp 98.9 F 12/18/20 14:30 Pulse 115 H 12/18/20 16:00 Resp 28 H 12/18/20 14:11 BP 109/69 12/18/20 16:00 Pulse Ox 89 L 12/18/20 16:00 12/18/20 12/18/20 12/18/20 06:59 14:59 22:59 Intake Total 570 / 1268.791 528.276 / 528.276 215.878 / 744.154 Output Total 550 / 1150 Balance 20 / 118.791 528.276 / 528.276 215.878 / 744.154 Weight last 48 hrs Weight 187 lb 3 oz Weight 184 lb 5 oz Physical Exam Narrative: EXAM NARRATIVE: PHYSICAL EXAM: General: lying in bed, sedated and intubated. HEENT:NCAT, PERRLA, EOMI Neck: Supple Lungs: Clear, Heart: s1/s2, RRR Abd: soft, NT, ND, BS + Normoactive Extremities: No edema PURCHASING ADMINISTRATOR: sedated and limited PURCHASING ADMINISTRATOR exam possible. SKIN: no rash LDA: # CVC: Right IJ 12/16/2020 Urinary Catheter Management^: Obrien: Cath Placed During This Visit: yes Reason for Continuing Indwelling Catheter: Accurate Measurement of Urinary Output in Critically Ill Patients Urinary Catheter Date of Insertion: 12/11/20 Urinary Catheter Time of Insertion: 06:05 Data : 12/18/20 03:10 12/18/20 03:10 Other Labs: Laboratory Results WBC 12.3 10^3/uL (4.0-10.0) H 12/18/20 03:10 RBC 4.50 10^6/uL (4.1-5.3) 12/18/20 03:10 Hgb 12.0 g/dL (11.7-16.6) 12/18/20 03:10 Hct 38.9 % (42.0-52.0) L 12/18/20 03:10 MCV 86.4 fL (80-94) 12/18/20 03:10 MCH 26.7 pg (28.0-34.0) L 12/18/20 03:10 MCHC 30.8 g/dL (30.0-36.0) 12/18/20 03:10 RDW 14.2 % (12.1-15.1) 12/18/20 03:10 Plt Count 218 10^3/cmm (130-400) 12/18/20 03:10 MPV 9.9 fL (7.4-10.4) 12/18/20 03:10 Neut % (Auto) 94.3 % 12/18/20 03:10 Lymph % (Auto) 1.5 % 12/18/20 03:10 [place] % (Auto) 3.2 % 12/18/20 03:10 Eos % (Auto) 0.1 % 12/18/20 03:10 Baso % (Auto) 0.2 % 12/18/20 03:10 Neut # (Auto) 11.64 10^3/uL (1.8-7.7) H 12/18/20 03:10 Lymph # (Auto) 0.2 10^3/uL (0.8-4.8) L 12/18/20 03:10 [place] # (Auto) 0.4 10^3/uL (0.2-0.9) 12/18/20 03:10 Eos # (Auto) 0.0 10^3/uL (0.0-0.8) 12/18/20 03:10 Baso # (Auto) 0.0 10^3/uL (0.0-0.1) 12/18/20 03:10 Nucleated RBC % (auto) 0 % 12/18/20 03:10 Nucleated RBCs # 0.0 /100WBC 12/18/20 03:10 ESR 47 mm/hr (0-10) H 12/16/20 12:02 PT 14.20 SECONDS (12.1-14.9) 12/10/20 19:50 INR 1.07 (0.8-1.2) 12/10/20 19:50 APTT 30.0 SECONDS (23.9-36.7) 12/10/20 19:50 D-Dimer 14.95 ug/mIFEU (0-0.59) H 12/16/20 12:02 Specimen Type Arterial 12/18/20 04:33 Sample Site Brachial, right 12/18/20 04:33 ABG pH 7.33 (7.35-7.45) L 12/18/20 04:33 ABG pCO2 46.8 mmHg (35-45) H 12/18/20 04:33 ABG pO2 58.7 mmHg (80.0-100.0) L 12/18/20 04:33 ABG HCO3 24.8 mmol/L (22-26) 12/18/20 04:33 ABG O2 Saturation 90.8 12/18/20 04:33 ABG Base Excess -1.5 mmol/L (-2.0-2.0) 12/18/20 04:33 Lg Test N/a 12/18/20 04:33 A-a O2 Gradient 49.7 mmHg (5-10) H 12/18/20 04:33 Hematocrit 41.8 % (42-52) L 12/18/20 04:33 Hgb O2 Saturation 89.4 % (95-100) L 12/18/20 04:33 Carboxyhemoglobin 0.8 %THgb (0.4-20.1) 12/18/20 04:33 Methemoglobin 0.7 % (0.4-1.5) 12/18/20 04:33 Total Hemoglobin 13.6 g/dL (14-18) L 12/18/20 04:33 Sodium 133.0 mmol/L (131-143) 12/18/20 04:33 Potassium 4.0 mmol/L (3.5-5.0) 12/18/20 04:33 Glucose 368.0 mg/dL (70-115) H 12/18/20 04:33 Ionized Calcium 1.2 mmol/L (1.1-1.4) 12/18/20 04:33 O2 Delivery Device Vent 12/18/20 04:33 O2 Liters/Min 5.0 % 12/10/20 19:39 FiO2 70.0 % 12/18/20 04:33 Tidal Volume 0.50 12/16/20 21:24 PEEP 12.0 cmH20 12/18/20 04:33 Egg Worker ID Luciano 12/18/20 04:33 Sodium 133 mmol/L (136-145) L 12/18/20 03:10 Potassium 4.2 mmol/L (3.5-5.1) 12/18/20 03:10 Chloride 99 mmol/L (98-107) 12/18/20 03:10 Carbon Dioxide 24 mmol/L (22-29) 12/18/20 03:10 Anion Gap 14.2 (5-19) 12/18/20 03:10 BUN 34 mg/dL (8-23) H 12/18/20 03:10 Creatinine 0.9 mg/dL (0.7-1.2) 12/18/20 03:10 GFR Calculation Not Reportable 12/18/20 03:10 Glucose 355 mg/dL (65-115) H 12/18/20 03:10 POC Glucose 463 mg/dL (70-110) H 12/18/20 12:39 Calculated Osmolality 298 mOsm/kg (285-295) H 12/18/20 03:10 Lactic Acid 2.4 mmol/L (0.5-2.2) H 12/18/20 12:55 Calcium 8.0 mg/dL (8.5-10.5) L 12/18/20 03:10 Phosphorus 4.4 mg/dL (2.5-4.5) 12/18/20 03:10 Magnesium 2.6 mg/dL (1.7-2.3) H 12/18/20 03:10 Ferritin 726 ng/mL (30-400) H 12/16/20 12:02 Total Bilirubin 0.8 mg/dL (0.15-1.2) 12/18/20 03:10 AST 51 U/L (0-40) H 12/18/20 03:10 ALT 32 U/L (0-41) 12/18/20 03:10 Alkaline Phosphatase 120 IU/L (40-130) 12/18/20 03:10 Lactate Dehydrogenase 294 U/L (135-225) H 12/12/20 07:25 Creatine Kinase 76 U/L (39-308) 12/11/20 00:15 Troponin T Baseline 13 ng/L (0-15) 12/10/20 19:50 Troponin T 120 Minute 11.26 ng/L (0-15) 12/10/20 23:22 Delta Troponin T -1.74 ABS# (0-10) L 12/10/20 23:22 Troponin T Hi Sens 6Hr 11.19 ng/L (0-15) 12/11/20 00:15 Troponin T Hi Sens 6Hr Delta -1.81 ng/L (0-12) L 12/11/20 00:15 C-Reactive Protein 166.4 mg/L (0.0-4.9) H 12/16/20 12:02 NT-Pro-B Natriuret Pep 54962 pg/mL (0-125) H 12/10/20 19:50 Total Protein 5.6 g/dL (6.6-8.7) L 12/18/20 03:10 Albumin 2.4 g/dL (3.5-5.2) L 12/18/20 03:10 Globulin 3.2 g/dL (1.3-4.6) 12/18/20 03:10 Procalcitonin 0.19 ng/mL (0-0.5) 12/14/20 06:38 Urine Color Yellow (Yellow) 12/11/20 06:05 Urine Appearance Clear (CLEAR) 12/11/20 06:05 Urine pH 5 (5-7) 12/11/20 06:05 Ur Specific [place] 1.015 (1.005-1.030) 12/11/20 06:05 Urine Protein Neg (Negative) 12/11/20 06:05 Urine Glucose (UA) 4+ (Normal) H 12/11/20 06:05 Urine Ketones Negative (Negative) 12/11/20 06:05 Urine Blood Neg (Negative) 12/11/20 06:05 Urine Nitrate Negative (Negative) 12/11/20 06:05 Urine Bilirubin Neg (Negative) 12/11/20 06:05 Urine Urobilinogen Norm mg/dL (Negative) 12/11/20 06:05 Ur Leukocyte Esterase Negative (Negative) 12/11/20 06:05 Ur Random Sodium 26 mmol/L 12/11/20 06:05 Ur Random Potassium 31 mmol/L 12/11/20 06:05 Ur Random Chloride 13 mmol/L 12/11/20 06:05 Impressions Renal Ultrasound 12/11/20 05:19 IMPRESSION: 1. Prominent right renal pelvis. No hydronephrosis.. Right renal cortical atrophy. 2. Normal left kidney. No hydronephrosis. 3. Obrien catheter. Chest X-Ray 12/18/20 07:07 IMPRESSION: Multifocal bilateral airspace opacities noted, slightly decreased. Findings may be seen with pneumonia. Micro: Microbiology 12/16/20 13:19 Gram Stain - Final Sputum - Expectorated Sputum Sputum Culture - Preliminary Yeast species A&P Assessment and plan (1) ARDS (adult respiratory distress syndrome): Status: Acute (2) Aspiration pneumonia: Status: Acute Qualifiers: Aspiration pneumonia type: unspecified Laterality: bilateral Lung location: lower lobe of lung Qualified Code(s): J69.0 - Pneumonitis due to inhalation of food and vomit (3) Respiratory failure with hypoxia: Status: Acute Qualifiers: Chronicity: acute Qualified Code(s): J96.01 - Acute respiratory failure with hypoxia (4) A-fib: Status: Acute Qualifiers: Atrial fibrillation type: unspecified chronic Qualified Code(s): I48.20 - Chronic atrial fibrillation, unspecified (5) Acute kidney injury superimposed on CKD: Status: Acute (6) COVID-19: Status: Acute (7) Controlled diabetes mellitus with hyperglycemia, with long-term current use of insulin: Status: Chronic Qualifiers: Diabetes mellitus type: type 2 Qualified Code(s): E11.65 - Type 2 diabetes mellitus with hyperglycemia; Z79.4 - exterminator helper termite (current) use of insulin (8) Hiatal hernia: Status: Acute (9) At risk for aspiration: Status: Acute Overall: 76-year-old male admitted for hypoxic respiratory failure secondary to ARDS due to COVID-19 pneumonia with superimposing aspiration pneumonia-currently intubated 12/16/2020 #Sedation-fentanyl, propofol -taper to do awakening trials -On Seroquel 50 mg p.o. daily #Acute hypoxic respiratory failure secondary to ARDS due to COVID-19 pneumonia and superimposing aspiration pneumonia -Currently intubated on PCV 29/12 PEEP/75% FiO2 -titrate FiO2 down to keep saturations greater than 90% -ABG today 7.3 3/46/58/20 4/90% on PCV 70%/12 -Completed remdesivir 5-day protocol -Currently on dexamethasone 6 mg IVP daily -Improving multifocal bilateral airspace opacities on today's chest x-ray -DuoNeb nebulization every 6 hours scheduled; & Pulmicort 0.5 twice daily -Monitor inflammatory markers every 48 hours -On Zosyn -Continue awakening trial followed by breathing trials -Send for MRSA nares #Chronic A. fib -On metoprolol 12.5 mg p.o. twice daily-held in view of hypotension -Requiring Levophed 2 MCG/hour -On Eliquis for anticoagulation #SHUKRI on CKD-improved -Overall -11 L under renal functions and electrolytes within normal limits -On Flomax and finasteride #Deranged LFTs-likely secondary to COVID-19 pneumonia -Monitor LFTs -If worsening hold atorvastatin #Diabetes mellitus-uncontrolled sugars -Lantus 18 units and scale coverage -Increase Lantus to 25 units #Recent urine culture 10/17/2020 and 11/29/2020-E. coli - Sensitive to Zosyn #Sputum 12/16/2020-positive for yeast-identification pending #Blood culture 12/10/2020 1/ bottles positive for bacillus likely contamination #Large hiatal hernia-at risk for aspiration -Currently on Zosyn -Monitor vitals, WBC, fevers #Diet-tube feeding #DVT prophylaxis-Eliquis #GI prophylaxis-H2 swapna #Code-full code #Prognosis-guarded Hospitalist, RN, RT covering the patient updated Attestations Medical Necessity Statement*: Acute hypoxic respiratory failure secondary to ARDS due to COVID-19 pneumonia and aspiration pneumonia, uncontrolled blood sugars, still requiring high FiO2 on mechanical ventilation. Time Spent in Patient Care: Greater than 35 minutes (>than 50% of time spent in counselling and/or direct pt care on unit). Critical Care Time: Critical Care Time (min): 60 Coding Level of Care Code Established Pt Acute House Coordinator for Chg Fwd Patient Type Established History Comprehensive Exam Comprehensive Medical Decision Making High Complexity Diagnoses ARDS (adult respiratory distress syndrome) J80 Aspiration pneumonia J69.0 Aspiration pneumonia type: unspecified Laterality: bilateral Lung location: lower lobe of lung Respiratory failure with hypoxia J96.01 Chronicity: acute A-fib I48.20 Atrial fibrillation type: unspecified chronic Acute kidney injury superimposed on CKD N17.9; N18.9 COVID-19 U07.1 Controlled diabetes mellitus with hyperglycemia, with long-term current use of insulin E11.65; Z79.4 Diabetes mellitus type: type 2 Hiatal hernia K44.9 At risk for aspiration Z91.89 Time Spent (min) 60
[2020-12-18 17:53] LABS: Glucose Point of Care 297 mg/dL (70-110)
--- NOTE | 2020-12-18 18:03 | PM.PN ---
Subjective Subjective: Interval history: Pressure support started pressure support started today Vitals/I&O/Wt Last Vital Signs Temp 98.9 F 12/18/20 14:30 Pulse 115 H 12/18/20 16:00 Resp 30 H 12/18/20 17:23 BP 109/69 12/18/20 16:00 Pulse Ox 89 L 12/18/20 17:23 12/18/20 12/18/20 12/18/20 06:59 14:59 22:59 Intake Total 570 / 1268.791 528.276 / 528.276 215.878 / 744.154 Output Total 550 / 1150 Balance 20 / 118.791 528.276 / 528.276 215.878 / 744.154 Weight last 48 hrs Weight 84.907 kg Weight 83.603 kg Physical Exam Narrative: EXAM NARRATIVE: Intubated and sedated Bilateral assisted breath sounds S1, S2 sinus rhythm Abdomen soft no signs of distention No edema of lower extremities Patient is sedated Limited SYSTEMS PROJECT MANAGER exam No skin rash No sign of cellulitis Right IJ 12/16 Urinary Catheter Management^: Obrien: Cath Placed During This Visit: yes Reason for Continuing Indwelling Catheter: Accurate Measurement of Urinary Output in Critically Ill Patients Urinary Catheter Date of Insertion: 12/11/20 Urinary Catheter Time of Insertion: 06:05 Data : 12/18/20 03:10 12/18/20 03:10 Micro: Microbiology 12/16/20 13:19 Gram Stain - Final Sputum - Expectorated Sputum Sputum Culture - Preliminary Yeast species A&P Assessment and plan (1) At risk for aspiration: Status: Acute (2) Hiatal hernia: Status: Acute (3) ARDS (adult respiratory distress syndrome): Status: Acute (4) Hyperglycemia: Status: Acute (5) Aspiration pneumonia: Status: Acute Qualifiers: Aspiration pneumonia type: unspecified Laterality: bilateral Lung location: lower lobe of lung Qualified Code(s): J69.0 - Pneumonitis due to inhalation of food and vomit (6) A-fib: Status: Acute Qualifiers: Atrial fibrillation type: unspecified chronic Qualified Code(s): I48.20 - Chronic atrial fibrillation, unspecified (7) Acute kidney injury superimposed on CKD: Status: Acute (8) COVID-19: Status: Acute (9) Respiratory failure: Status: Acute Qualifiers: Chronicity: acute Respiratory failure complication: hypoxia Qualified Code(s): J96.01 - Acute respiratory failure with hypoxia Additional A&P Information Respiratory failure requiring respiratory failure requiring mechanical ventilation ARDS secondary to COVID-19 with superimposed aspiration pneumonia Pressure support started today Status post remdesivir regimen Continue Decadron Currently on Zosyn for aspiration DuoNeb Awakening trials/sedation medication Chronic A. fib On Eliquis for anticoagulation AV didier blocking agent on hold due to hypotension currently on vasopressors, 2 mics of levo running at the bedside Acute on chronic kidney disease Monitor urine output and creatinine Abnormal LFTs secondary to COVID-19 pneumonia Type 2 diabetes currently on sliding scale and Lantus, Lantus increased to 25 units Urine culture E. coli sensitive to Zosyn Sputum culture growing yeast Blood culture most likely contaminant Guarded prognosis Discussed with family helper Attestations Medical Necessity Statement*: As per pulmonary Time Spent in Patient Care: less than 15 minutes Coding Level of Care Code Acute Electricity Trader for g Fwd Diagnoses At risk for aspiration Z91.89 Hiatal hernia K44.9 ARDS (adult respiratory distress syndrome) J80 Hyperglycemia R73.9 Aspiration pneumonia J69.0 Aspiration pneumonia type: unspecified Laterality: bilateral Lung location: lower lobe of lung A-fib I48.20 Atrial fibrillation type: unspecified chronic Acute kidney injury superimposed on CKD N17.9; N18.9 COVID-19 U07.1 Respiratory failure J96.01 Chronicity: acute Respiratory failure complication: hypoxia
[2020-12-18 19:03] LABS: Lactic Acid level (Lactate) 2.5 mmol/L (0.5-2.2)
[2020-12-18] MEDS: tamsulosin 0.4 mg Capsule PO (20:15)
[2020-12-18] MEDS: atorvastatin 40 mg Tablet 80 MG PO (20:15)
[2020-12-18] MEDS: insulin glargine 100 units/1 mL 25 UNIT SUBCUT (20:17)
[2020-12-18 20:27] LABS: Glucose Point of Care 226 mg/dL (70-110)
[2020-12-19] VITALS (82 sets, daily range): BP systolic 76–129; BP diastolic 56–91; PULSE 89–185; RESP 16–32; TEMP 37.3–38.9; O2SAT 87–94
[2020-12-19] MEDS: acetaminophen 325 mg Tablet 650 MG PO (01:29)
[2020-12-19] MEDS: propofol 1,000 MG/100 ML INJ 27.22 MG IV ×6 (02:09→19:48)
[2020-12-19] MEDS: dexamethasone 4 mg/mL INJ 6 MG IVP (04:31)
[2020-12-19 05:52] LABS: Basophils % 0.1 %; Eosinophils # 0.1 10^3/uL (0.0-0.8); Eosinophils % 0.6 %; Hemoglobin 12.3 g/dL (11.7-16.6); Lymphocytes # 0.5 10^3/uL (0.8-4.8); Mean Corpuscular HGB Conc 30.8 g/dL (30.0-36.0); Mean Corpuscular Hemoglobin 26.6 pg (28.0-34.0); Mean Corpuscular Volume 86.6 fL (80-94); Monocytes # 0.7 10^3/uL (0.2-0.9); Monocytes % 5.5 %; Neutrophils # 11.68 10^3/uL (1.8-7.7); Nucleated Red Blood Cells % 0 %; Platelet Count 231 10^3/cmm (130-400); Red Blood Count 4.62 10^6/uL (4.1-5.3); Red Cell Distribution Width 14.6 % (12.1-15.1); White Blood Count 13.1 10^3/uL (4.0-10.0)
[2020-12-19] MEDS: piperacillin-tazobactam 3.375 GM in sodium chloride 0.9% (plus) 100 ML IV (06:00)
--- NOTE | 2020-12-19 06:16 | PC.NURSE ---
Shift Note Frequent safety and comfort rounds continue. Orders and/or nursing care completed as indicated. Patient monitored for response to intervention and treatment(s). Education provided includes proper pain control and exhibiting optimal respiratory status. Patient and/or abrasives sales representative needs reinforcement. Will continue to monitor.
[2020-12-19 06:20] LABS: Alanine Aminotransferase 48 U/L (0-41); Albumin Level 2.5 g/dL (3.5-5.2); Alkaline Phosphatase 118 IU/L (40-130); Anion Gap 18.6 (5-19); Aspartate Amino Transferase 107 U/L (0-40); Blood Urea Nitrogen 48 mg/dL (8-23); Carbon Dioxide 22 mmol/L (22-29); Chloride 98 mmol/L (98-107); Globulin 3.1 g/dL (1.3-4.6); Glucose 142 mg/dL (65-115); Magnesium 2.9 mg/dL (1.7-2.3); Osmolality Calculated 293 mOsm/kg (285-295); Phosphorus 4.1 mg/dL (2.5-4.5); Potassium 4.6 mmol/L (3.5-5.1); Sodium 134 mmol/L (136-145); Total Bilirubin 0.7 mg/dL (0.15-1.2); Total Protein 5.6 g/dL (6.6-8.7)
[2020-12-19 08:41] LABS: Glucose Point of Care 250 mg/dL (70-110)
[2020-12-19] MEDS: ipratropium-albuterol 3 mL Neb INHALATION ×2 (09:16→15:32)
[2020-12-19] MEDS: budesonide 0.5 mg/2 mL Neb INHALATION (09:16)
[2020-12-19] MEDS: sertraline 50 mg Tablet PO (09:26)
[2020-12-19] MEDS: apixaban 5 mg Tablet PO ×2 (09:26→20:00)
[2020-12-19] MEDS: vancomycin 1,250 MG/250 ML PIGGYBACK 200 MG IV (09:26)
[2020-12-19] MEDS: nystatin powder 15 gm Btl 1 APPLIC TOPICAL ×2 (09:27→18:12)
--- NOTE | 2020-12-19 09:29 | XRR_ITS ---
PROCEDURE INFORMATION: Exam: XR Chest Exam date and time: 12/19/2020 9:29 AM Age: 70 years old Clinical indication: Condition or disease; Lung condition and disease; Pneumonia; Patient HX: Covid TECHNIQUE: Imaging protocol: XR of the chest. Views: 1 view. COMPARISON: CR XR chest 1V portable [id number] 12/18/2020 7:22 AM FINDINGS: Tubes, catheters and devices: An endotracheal tube, nasogastric tube and central venous catheter projects in satisfactory position. Lungs: There are extensive diffuse bilateral pulmonary infiltrates which have not significantly changed. . Pleural spaces: Unremarkable. No pleural effusion. No pneumothorax. Heart/Mediastinum: Unremarkable. No cardiomegaly. Bones/joints: Unremarkable. Soft tissues: There is subcutaneous emphysema predominantly over the left side of the neck and chest. XR/XR chest 1V portable [id number] IMPRESSION: Stable extensive bilateral pulmonary infiltrates consistent with history of viral pneumonia.
[2020-12-19 10:03] LABS: ABG PCO2 40.1 mmHg (35-45); ABG PH Result 7.38 (7.35-7.45); Alveolar-Arterial Oxygen Gradi 5.8 mmHg (5-10); Arterial Blood Gas Hematocrit 38.6 % (42-52); Base Excess ABG -1.5 mmol/L (-2.0-2.0); Blood Gas Allen Test Pos; Blood Gas Sample Type Arterial; Carboxyhemoglobin 0.8 %THgb (0.4-20.1); HCO3 ABG 23.6 mmol/L (22-26); HGB O2 Sat 89.5 % (95-100); Ionized Calcium Level - ABG 1.1 mmol/L (1.1-1.4); Methemoglobin 0.9 % (0.4-1.5); PO2 ABG 55.7 mmHg (80.0-100.0); Potassium Level - ABG 4.9 mmol/L (3.5-5.0); Total Hemoglobin 12.6 g/dL (14-18)
[2020-12-19 10:05] LABS: Blood Gas Operator Identificat CAK; Oxygen Device VENT
[2020-12-19 10:06] LABS: Blood Gas Sample Site LR; Blood Gas Vent Mode PCV
[2020-12-19] MEDS: famotidine 20 mg/2 mL INJ IVP ×2 (10:58→23:04)
[2020-12-19] MEDS: albumin 12.5 GM/50 ML VIAL IV (10:58)
--- NOTE | 2020-12-19 11:06 | PC.SOCIAL ---
IMM NOT GIVEN IMM update not given due to pt still intubated at this time.
[2020-12-19] MEDS: cefepime 1,000 MG in sodium chloride 0.9% (plus) 100 ML 200 MG IV ×2 (11:41→22:22)
[2020-12-19] MEDS: fluconazole premix 200 MG/100 ML PREMIX 100 MG IV (11:42)
[2020-12-19 12:06] LABS: Glucose Point of Care 294 mg/dL (70-110)
[2020-12-19] MEDS: cisatracurium 100 MG in sodium chloride 0.9% 50 ML IV (13:15)
--- NOTE | 2020-12-19 17:10 | ECG_ITS ---
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 Measurements Intervals [place] Rate: 111 P: UT: QRS: -49 QRSD: 107 T: 121 QT: 308 QTc: 419 Interpretive Statements ATRIAL FIBRILLATION WITH RAPID VENTRICULAR RESPONSE LOW QRS VOLTAGE IN PRECORDIAL LEADS [QRS DEFLECTION < 1.0 mV IN CHEST LEADS] RIGHT BUNDLE BRANCH BLOCK POSSIBLE ANTERIOR MYOCARDIAL INFARCTION [30 ms Q WAVE IN V3/V4, OR R < 0.2 mV IN V4], PROBABLY OLD INFERIOR MYOCARDIAL INFARCTION [40+ ms Q WAVE AND/OR ST/T ABNORMALITY IN II/aVF], PROBABLY OLD INTERPRETATION BASED ON A DEFAULT AGE OF 40 YEARS Compared to ECG 12/11/2020 01:20:02 Low QRS voltage now present.Right bundle-branch block now present Sinus rhythm no longer present.Sinus arrhythmia no longer present Left-axis deviation no longer present Intraventricular conduction delay no longer present Myocardial infarct finding still present Electronically Signed On 12-19-2020 18:22:42 CDT by Enrike Carrillo M.D. [email or web address]
[2020-12-19 17:24] LABS: Glucose Point of Care 257 mg/dL (70-110)
--- NOTE | 2020-12-19 18:31 | P.PN_ITS ---
Subjective Subjective: Interval history: Patient was seen and examined this morning, paralytic agent was started this morning, there was plan to start proning however before proning he started showing V. tach on telemetry for which he received amiodarone His rhythm converted to A. fib, he did not lose pulse map above 65 Family was updated His daughter Gely phone number [phone], has not been in touch with him for a long time, She was updated, He is full code Lead Software Qa Engineer updated Vitals/I&O/Wt Last Vital Signs Temp 100.2 F H 12/19/20 11:00 Pulse 120 H 12/19/20 15:49 Resp 31 H 12/19/20 17:24 BP 107/69 12/19/20 14:30 Pulse Ox 92 12/19/20 17:24 12/19/20 12/19/20 12/19/20 06:59 14:59 22:59 Intake Total 646.490 / 2071.018 933.891 / 933.891 179.475 / 1113.366 Output Total 400 / 800 600 / 600 Balance 246.490 / 1271.018 333.891 / 333.891 179.475 / 513.366 Weight last 48 hrs Weight 89.613 kg Weight 84.907 kg Physical Exam Narrative: EXAM NARRATIVE: Intubated and sedated and paralyzed Neuro exam limited A. fib with RVR Assisted bilateral breath sounds Lower extremity no edema No sign of cellulitis or joint swelling BIs 20-40 Obrien catheter draining concentrated urine Multiple IVs at the bedside, sedatives and paralytic Positive balance of 1 L Urinary Catheter Management^: Obrien: Cath Placed During This Visit: yes Reason for Continuing Indwelling Catheter: Accurate Measurement of Urinary Output in Critically Ill Patients Urinary Catheter Date of Insertion: 12/11/20 Urinary Catheter Time of Insertion: 06:05 Data : 12/19/20 05:30 12/19/20 05:30 Micro: Microbiology 12/18/20 15:30 MRSA Culture - Final Nose 12/16/20 13:19 Gram Stain - Final Sputum - Expectorated Sputum Sputum Culture - Preliminary Yeast species 12/19/20 05:36 Blood Culture - Preliminary Blood SPECIMEN COLLECTED 12/19/20 05:30 Blood Culture - Preliminary Blood SPECIMEN COLLECTED A&P Assessment and plan (1) At risk for aspiration: Status: Acute (2) Hiatal hernia: Status: Acute (3) ARDS (adult respiratory distress syndrome): Status: Acute (4) Hyperglycemia: Status: Acute (5) Aspiration pneumonia: Status: Acute Qualifiers: Aspiration pneumonia type: unspecified Laterality: bilateral Lung location: lower lobe of lung Qualified Code(s): J69.0 - Pneumonitis due to inhalation of food and vomit (6) ARDS (adult respiratory distress syndrome): Status: Acute (7) Respiratory failure with hypoxia: Status: Acute Qualifiers: Chronicity: acute Qualified Code(s): J96.01 - Acute respiratory failure with hypoxia (8) Decompensated heart failure: Status: Acute (9) Acute kidney injury superimposed on CKD: Status: Acute (10) COVID-19: Status: Acute Additional A&P Information Respiratory failure requiring mechanical ventilation Sedated and paralyzed Proning on hold secondary to change in rhythm currently in A. fib, amnio was given for his V. tach Vent management as per translational specialist Chronic A. fib Amiodarone was started today AV didier blocking agent was on hold secondary to hypotension On Eliquis for anticoagulation Still requiring vasopressor Acute on chronic kidney disease Creatinine seems to have worsened -10to -11 L fluid balance Hyperglycemia without DKA Hyperglycemia however Lantus was increased yesterday We will follow up with Dr. Roberts, might need IV insulin for short period of time Urine culture E. coli sensitive to Zosyn Sputum culture grew yeast, getting fluconazole IV Blood culture likely contamination Tube feed diet Full code Daughter updated Phone number mentioned above Attestations Medical Necessity Statement*: Guarded prognosis, at risk of cardiac arrest with unstable V. tach Time Spent in Patient Care: 16 - 35 minutes Coding Level of Care Code Acute Transitional Kindergarten Teacher for Chg Fwd Diagnoses At risk for aspiration Z91.89 Hiatal hernia K44.9 ARDS (adult respiratory distress syndrome) J80 Hyperglycemia R73.9 Aspiration pneumonia J69.0 Aspiration pneumonia type: unspecified Laterality: bilateral Lung location: lower lobe of lung ARDS (adult respiratory distress syndrome) J80 Respiratory failure with hypoxia J96.01 Chronicity: acute Decompensated heart failure I50.9 Acute kidney injury superimposed on CKD N17.9; N18.9 COVID-19 U07.1
--- NOTE | 2020-12-19 19:25 | PC.NURSE ---
[address] Caceres. Reviewed culture results, labs, blood sugar, elevated heart rate. Plan to change antibiotics and give Albumin. 1700 Dr. Caceres at bedside to review rhythm change. 1703 300 mg Amio given IVP per Dr. Caceres's verbal order. 1708 150 mg Amio given per Dr. Caceres's verbal order. Patient hooked to the defibrillator. Daughter notified by physician of change in status. BIS [employer] 1300 27 4/4 1345 29 4/4 1400 4/4 1430 31 4/4 1500 28 3/4 1600 34 3/4 1700 30 2/4 1800 30 2/4
[2020-12-19] MEDS: atorvastatin 40 mg Tablet 80 MG PO (20:00)
[2020-12-19] MEDS: insulin glargine 100 units/1 mL 25 UNIT SUBCUT (20:00)
[2020-12-19] MEDS: tamsulosin 0.4 mg Capsule PO (20:00)
[2020-12-19 21:42] LABS: Glucose Point of Care 276 mg/dL (70-110)
--- NOTE | 2020-12-19 22:00 | P.PN_ITS ---
Subjective Subjective: Interval history: - Patient seen multiple times throughout the day - In the morning patient was on PCV //12/85% saturating 89% - spiking fevers and requiring Levophed 2-so antibiotics were broadened to vancomycin, imipenem and fluconazole -Plan was to paralyze and prone patient -In late afternoon prior to schedule proning session-patient went into A. fib RVR with no episodes of hypotension (maps in the 80s)-given amiodarone 300 mg bolus, followed by 150 mg bolus, and Cardizem 30 mg IV push and started on amiodarone drip -Dr. Interiano was able to get in touch with patient's daughter and updated his clinical condition and she came to visit the patient in the evening. -I personally spoke to patient's daughter and she would want to make further decisions about CODE STATUS after first code. After answering all her questions-patient is decided to be on full code and will let daughter know if there is any change in clinical status -Labs and imaging reviewed Medications: Reviewed: Yes Vitals/I&O/Wt Last Vital Signs Temp 99.6 F 12/19/20 15:00 Pulse 134 H 12/19/20 19:15 Resp 29 H 12/19/20 20:21 BP 117/77 12/19/20 19:15 Pulse Ox 93 12/19/20 20:21 12/19/20 12/19/20 12/19/20 06:59 14:59 22:59 Intake Total 646.490 / 2071.018 933.891 / 933.891 379.475 / 1313.366 Output Total 400 / 800 600 / 600 550 / 1150 Balance 246.490 / 1271.018 333.891 / 333.891 -170.525 / 163.366 Weight last 48 hrs Weight 197 lb 9 oz Weight 187 lb 3 oz Physical Exam Narrative: EXAM NARRATIVE: General: lying in bed, sedated and intubated. HEENT:NCAT, PERRLA, EOMI Neck: Supple Lungs: Clear, Heart: s1/s2, RRR Abd: soft, NT, ND, BS + Normoactive Extremities: No edema BENCH ASSEMBLER: sedated and limited BENCH ASSEMBLER exam possible. SKIN: no rash LDA: # CVC: Right IJ 12/16/2020 Urinary Catheter Management^: Obrien: Cath Placed During This Visit: yes Reason for Continuing Indwelling Catheter: Accurate Measurement of Urinary Output in Critically Ill Patients Urinary Catheter Date of Insertion: 12/11/20 Urinary Catheter Time of Insertion: 06:05 Data : 12/19/20 05:30 12/19/20 05:30 Other Labs: Laboratory Results WBC 13.1 10^3/uL (4.0-10.0) H 12/19/20 05:30 RBC 4.62 10^6/uL (4.1-5.3) 12/19/20 05:30 Hgb 12.3 g/dL (11.7-16.6) 12/19/20 05:30 Hct 40.0 % (42.0-52.0) L 12/19/20 05:30 MCV 86.6 fL (80-94) 12/19/20 05:30 MCH 26.6 pg (28.0-34.0) L 12/19/20 05:30 MCHC 30.8 g/dL (30.0-36.0) 12/19/20 05:30 RDW 14.6 % (12.1-15.1) 12/19/20 05:30 Plt Count 231 10^3/cmm (130-400) 12/19/20 05:30 MPV 10.0 fL (7.4-10.4) 12/19/20 05:30 Neut % (Auto) 89.0 % 12/19/20 05:30 Lymph % (Auto) 4.0 % 12/19/20 05:30 [place] % (Auto) 5.5 % 12/19/20 05:30 Eos % (Auto) 0.6 % 12/19/20 05:30 Baso % (Auto) 0.1 % 12/19/20 05:30 Neut # (Auto) 11.68 10^3/uL (1.8-7.7) H 12/19/20 05:30 Lymph # (Auto) 0.5 10^3/uL (0.8-4.8) L 12/19/20 05:30 [place] # (Auto) 0.7 10^3/uL (0.2-0.9) 12/19/20 05:30 Eos # (Auto) 0.1 10^3/uL (0.0-0.8) 12/19/20 05:30 Baso # (Auto) 0.0 10^3/uL (0.0-0.1) 12/19/20 05:30 Nucleated RBC % (auto) 0 % 12/19/20 05:30 Nucleated RBCs # 0.0 /100WBC 12/19/20 05:30 ESR 47 mm/hr (0-10) H 12/16/20 12:02 PT 14.20 SECONDS (12.1-14.9) 12/10/20 19:50 INR 1.07 (0.8-1.2) 12/10/20 19:50 APTT 30.0 SECONDS (23.9-36.7) 12/10/20 19:50 D-Dimer 14.95 ug/mIFEU (0-0.59) H 12/16/20 12:02 Specimen Type Arterial 12/19/20 09:51 Sample Site Lr 12/19/20 09:51 ABG pH 7.38 (7.35-7.45) 12/19/20 09:51 ABG pCO2 40.1 mmHg (35-45) 12/19/20 09:51 ABG pO2 55.7 mmHg (80.0-100.0) L 12/19/20 09:51 ABG HCO3 23.6 mmol/L (22-26) 12/19/20 09:51 ABG O2 Saturation 91.0 12/19/20 09:51 ABG Base Excess -1.5 mmol/L (-2.0-2.0) 12/19/20 09:51 Lg Test Pos 12/19/20 09:51 A-a O2 Gradient 5.8 mmHg (5-10) 12/19/20 09:51 Hematocrit 38.6 % (42-52) L 12/19/20 09:51 Hgb O2 Saturation 89.5 % (95-100) L 12/19/20 09:51 Carboxyhemoglobin 0.8 %THgb (0.4-20.1) 12/19/20 09:51 Methemoglobin 0.9 % (0.4-1.5) 12/19/20 09:51 Total Hemoglobin 12.6 g/dL (14-18) L 12/19/20 09:51 Sodium 131.0 mmol/L (131-143) 12/19/20 09:51 Potassium 4.9 mmol/L (3.5-5.0) 12/19/20 09:51 Glucose 292.0 mg/dL (70-115) H 12/19/20 09:51 Ionized Calcium 1.1 mmol/L (1.1-1.4) 12/19/20 09:51 Respiration Rate 28.0 % 12/19/20 09:51 O2 Delivery Device Vent 12/19/20 09:51 O2 Liters/Min 5.0 % 12/10/20 19:39 Vent Mode Pcv 12/19/20 09:51 FiO2 70.0 % 12/18/20 04:33 Tidal Volume 0.50 12/16/20 21:24 PEEP 12.0 cmH20 12/19/20 09:51 Director Of Strategic Partnerships ID Cak 12/19/20 09:51 Sodium 134 mmol/L (136-145) L 12/19/20 05:30 Potassium 4.6 mmol/L (3.5-5.1) 12/19/20 05:30 Chloride 98 mmol/L (98-107) 12/19/20 05:30 Carbon Dioxide 22 mmol/L (22-29) 12/19/20 05:30 Anion Gap 18.6 (5-19) 12/19/20 05:30 BUN 48 mg/dL (8-23) H 12/19/20 05:30 Creatinine 1.7 mg/dL (0.7-1.2) H 12/19/20 05:30 GFR Calculation Not Reportable 12/19/20 05:30 Glucose 142 mg/dL (65-115) H 12/19/20 05:30 POC Glucose 276 mg/dL (70-110) H 12/19/20 19:53 Calculated Osmolality 293 mOsm/kg (285-295) 12/19/20 05:30 Lactic Acid 2.4 mmol/L (0.5-2.2) H 12/18/20 12:55 Lactic Acid (Sepsis) 2.5 mmol/L (0.5-2.2) H 12/18/20 18:28 Calcium 8.0 mg/dL (8.5-10.5) L 12/19/20 05:30 Phosphorus 4.1 mg/dL (2.5-4.5) 12/19/20 05:30 Magnesium 2.9 mg/dL (1.7-2.3) H 12/19/20 05:30 Ferritin 726 ng/mL (30-400) H 12/16/20 12:02 Total Bilirubin 0.7 mg/dL (0.15-1.2) 12/19/20 05:30 AST 107 U/L (0-40) H 12/19/20 05:30 ALT 48 U/L (0-41) H 12/19/20 05:30 Alkaline Phosphatase 118 IU/L (40-130) 12/19/20 05:30 Lactate Dehydrogenase 294 U/L (135-225) H 12/12/20 07:25 Creatine Kinase 76 U/L (39-308) 12/11/20 00:15 Troponin T Baseline 13 ng/L (0-15) 12/10/20 19:50 Troponin T 120 Minute 11.26 ng/L (0-15) 12/10/20 23:22 Delta Troponin T -1.74 ABS# (0-10) L 12/10/20 23:22 Troponin T Hi Sens 6Hr 11.19 ng/L (0-15) 12/11/20 00:15 Troponin T Hi Sens 6Hr Delta -1.81 ng/L (0-12) L 12/11/20 00:15 C-Reactive Protein 166.4 mg/L (0.0-4.9) H 12/16/20 12:02 NT-Pro-B Natriuret Pep 39808 pg/mL (0-125) H 12/10/20 19:50 Total Protein 5.6 g/dL (6.6-8.7) L 12/19/20 05:30 Albumin 2.5 g/dL (3.5-5.2) L 12/19/20 05:30 Globulin 3.1 g/dL (1.3-4.6) 12/19/20 05:30 Procalcitonin 0.19 ng/mL (0-0.5) 12/14/20 06:38 Urine Color Yellow (Yellow) 12/11/20 06:05 Urine Appearance Clear (CLEAR) 12/11/20 06:05 Urine pH 5 (5-7) 12/11/20 06:05 Ur Specific [place] 1.015 (1.005-1.030) 12/11/20 06:05 Urine Protein Neg (Negative) 12/11/20 06:05 Urine Glucose (UA) 4+ (Normal) H 12/11/20 06:05 Urine Ketones Negative (Negative) 12/11/20 06:05 Urine Blood Neg (Negative) 12/11/20 06:05 Urine Nitrate Negative (Negative) 12/11/20 06:05 Urine Bilirubin Neg (Negative) 12/11/20 06:05 Urine Urobilinogen Norm mg/dL (Negative) 12/11/20 06:05 Ur Leukocyte Esterase Negative (Negative) 12/11/20 06:05 Ur Random Sodium 26 mmol/L 12/11/20 06:05 Ur Random Potassium 31 mmol/L 12/11/20 06:05 Ur Random Chloride 13 mmol/L 12/11/20 06:05 Impressions Renal Ultrasound 12/11/20 05:19 IMPRESSION: 1. Prominent right renal pelvis. No hydronephrosis.. Right renal cortical atrophy. 2. Normal left kidney. No hydronephrosis. 3. Obrien catheter. Chest X-Ray 12/19/20 09:29 IMPRESSION: Stable extensive bilateral pulmonary infiltrates consistent with history of viral pneumonia. Micro: Microbiology 12/18/20 15:30 MRSA Culture - Final Nose 12/16/20 13:19 Gram Stain - Final Sputum - Expectorated Sputum Sputum Culture - Preliminary Yeast species 12/19/20 05:36 Blood Culture - Preliminary Blood SPECIMEN COLLECTED 12/19/20 05:30 Blood Culture - Preliminary Blood SPECIMEN COLLECTED A&P Assessment and plan (1) ARDS (adult respiratory distress syndrome): Status: Acute (2) Aspiration pneumonia: Status: Acute Qualifiers: Aspiration pneumonia type: unspecified Laterality: bilateral Lung location: lower lobe of lung Qualified Code(s): J69.0 - Pneumonitis due to inhalation of food and vomit (3) Respiratory failure with hypoxia: Status: Acute Qualifiers: Chronicity: acute Qualified Code(s): J96.01 - Acute respiratory failure with hypoxia (4) A-fib: Status: Acute Qualifiers: Atrial fibrillation type: unspecified chronic Qualified Code(s): I48.20 - Chronic atrial fibrillation, unspecified (5) Acute kidney injury superimposed on CKD: Status: Acute (6) COVID-19: Status: Acute (7) Controlled diabetes mellitus with hyperglycemia, with long-term current use of insulin: Status: Chronic Qualifiers: Diabetes mellitus type: type 2 Qualified Code(s): E11.65 - Type 2 diabetes mellitus with hyperglycemia; Z79.4 - senior care (current) use of insulin (8) Hiatal hernia: Status: Acute (9) At risk for aspiration: Status: Acute (10) Decompensated heart failure: Status: Acute (11) Chronic kidney disease (CKD): Status: Acute Qualifiers: Chronic kidney disease stage: stage 3 (moderate) Chronic kidney disease stage 3 subtype: stage 3a (GFR 45-59) Qualified Code(s): N18.31 - Chronic kidney disease, stage 3a (12) History of deep venous thrombosis (DVT) of distal vein of left lower extremity: Status: Chronic Overall: 76-year-old male admitted for hypoxic respiratory failure secondary to ARDS due to COVID-19 pneumonia with superimposing aspiration pneumonia-currently intubated 12/16/2020 #Sedation and paralytic - fentanyl, propofol and Nimbex -Held Seroquel 50 mg p.o. daily #Acute hypoxic respiratory failure secondary to ARDS due to COVID-19 pneumonia and superimposing aspiration pneumonia -Currently intubated on PCV / 5% -Plan was to paralyze in prone today -but patient went into A. fib RVR just jesse or to planned proning session and so held for today -Completed remdesivir 5-day protocol -Currently on dexamethasone 6 mg IVP daily -Improving multifocal bilateral airspace opacities on today's chest x-ray -DuoNeb nebulization every 6 hours scheduled; & Pulmicort 0.5 twice daily -Monitor inflammatory markers every 48 hours -On Zosyn for aspiration pneumonia -Continue awakening trial followed by breathing trials -MRSA nares negative #Chronic A. fib-went into RVR # Decompensated heart failure with preserved ejection fraction: - 2D echo: Normal left ventricular cavity size. Normal left ventricular systolic function. Left ventricular ejection fraction is estimated at 65 %. Grade I diastolic dysfunction (abnormal relaxation filling pattern), normal to mildly elevated filling pressures. Normal right ventricular size and systolic function. No significant valvular abnor mality based on the study. Normal pulmonary artery pressure. -On metoprolol 12.5 mg p.o. twice daily-held in view of hypotension -Requiring Levophed 2 MCG/hour -Started on amiodarone gtt.-monitor LFTs -On Eliquis for anticoagulation # SHUKRI on CKD stage III: Likely secondary to cardiorenal syndrome secondary to decompensated heart failure: Improved -+1.2 L over last 24 hours and overall -10 L - renal functions slightly worsening and electrolytes within normal limits -On Flomax and finasteride #Deranged LFTs-likely secondary to COVID-19 pneumonia -Monitor LFTs -If worsening hold atorvastatin #Diabetes mellitus-uncontrolled sugars -Lantus 25 units and scale coverage -Monitor sugars and adjust accordingly #Persistent low-grade fever since yesterday night #Recent urine culture 10/17/2020 and 11/29/2020-E. coli - Sensitive to Zosyn #Sputum 12/16/2020-positive for yeast-identification pending #Blood culture 12/10/202005/14 bottles positive for bacillus likely contamination #Large hiatal hernia-at risk for aspiration -DC Zosyn and broadened antibiotic coverage to vancomycin, cefepime, -Monitor vitals, WBC, fevers #Diet-tube feeding #DVT prophylaxis-Eliquis #GI prophylaxis-H2 swapna #Code-full code #Prognosis-guarded #Daughter: Updated Hospitalist, RN, RT covering the patient updated Attestations Medical Necessity Statement*: Acute hypoxic respiratory failure secondary to ARDS due to COVID-19 pneumonia and aspiration pneumonia, uncontrolled blood sugars, still requiring high FiO2 on mechanical ventilation and today went into A. fib RVR in patient with underlying decompensated heart failure and chronic A. fib Time Spent in Patient Care: Greater than 35 minutes (>than 50% of time spent in counselling and/or direct pt care on unit) . Critical Care Time: Critical Care Time (min): 60 Coding Level of Care Code Established Pt Acute Seafood And Service Meat Manager for Chg Fwd Patient Type Established History Comprehensive Exam Comprehensive Medical Decision Making High Complexity Diagnoses ARDS (adult respiratory distress syndrome) J80 Aspiration pneumonia J69.0 Aspiration pneumonia type: unspecified Laterality: bilateral Lung location: lower lobe of lung Respiratory failure with hypoxia J96.01 Chronicity: acute A-fib I48.20 Atrial fibrillation type: unspecified chronic Acute kidney injury superimposed on CKD N17.9; N18.9 COVID-19 U07.1 Controlled diabetes mellitus with hyperglycemia, with long-term current use of insulin E11.65; Z79.4 Diabetes mellitus type: type 2 Hiatal hernia K44.9 At risk for aspiration Z91.89 Decompensated heart failure I50.9 Chronic kidney disease (CKD) N18.31 Chronic kidney disease stage: stage 3 (moderate) Chronic kidney disease stage 3 subtype: stage 3a (GFR 45-59) History of deep venous thrombosis (DVT) of distal vein of left lower extremity Z86.718 Time Spent (min) 60
[2020-12-19] MEDS: propofol 1,000 MG/100 ML INJ 21.77 MG IV (23:58)
[2020-12-20] VITALS (80 sets, daily range): BP systolic 78–132; BP diastolic 46–82; PULSE 63–167; RESP 24–36; TEMP 37.3–38.7; O2SAT 87–96
[2020-12-20] MEDS: cisatracurium 100 MG in sodium chloride 0.9% 50 ML 8.07 MG IV (02:00)
[2020-12-20] MEDS: propofol 1,000 MG/100 ML INJ 19.05 MG IV (04:20)
[2020-12-20] MEDS: acetaminophen 325 mg Tablet 650 MG PO ×2 (04:31→20:52)
[2020-12-20] MEDS: dexamethasone 4 mg/mL INJ 6 MG IVP (04:31)
--- NOTE | 2020-12-20 05:06 | PC.NURSE ---
Patient remains tachycardic, Dr. Cardozo ordered 20mg Cardizem IVP once. Helped for a little while. Continue care.
[2020-12-20 05:08] LABS: Basophils % 0.2 %; Eosinophils % 0.3 %; Hematocrit 37.9 % (42.0-52.0); Hemoglobin 11.8 g/dL (11.7-16.6); Lymphocytes # 0.6 10^3/uL (0.8-4.8); Lymphocytes % 4.6 %; Mean Corpuscular HGB Conc 31.1 g/dL (30.0-36.0); Mean Corpuscular Hemoglobin 27.3 pg (28.0-34.0); Mean Corpuscular Volume 87.5 fL (80-94); Mean Platelet Volume 10.5 fL (7.4-10.4); Monocytes % 7.4 %; Neutrophils # 11.46 10^3/uL (1.8-7.7); Nucleated Red Blood Cells % 0 %; Platelet Count 202 10^3/cmm (130-400); Red Blood Count 4.33 10^6/uL (4.1-5.3); Red Cell Distribution Width 14.7 % (12.1-15.1); White Blood Count 13.2 10^3/uL (4.0-10.0)
[2020-12-20 05:30] LABS: Alanine Aminotransferase 50 U/L (0-41); Albumin Level 2.6 g/dL (3.5-5.2); Alkaline Phosphatase 114 IU/L (40-130); Anion Gap 18.7 (5-19); Aspartate Amino Transferase 85 U/L (0-40); Blood Urea Nitrogen 60 mg/dL (8-23); Calcium 7.9 mg/dL (8.5-10.5); Carbon Dioxide 22 mmol/L (22-29); Chloride 97 mmol/L (98-107); Globulin 3.1 g/dL (1.3-4.6); Glucose 220 mg/dL (65-115); Osmolality Calculated 300 mOsm/kg (285-295); Phosphorus 5.3 mg/dL (2.5-4.5); Potassium 4.7 mmol/L (3.5-5.1); Sodium 133 mmol/L (136-145); Total Bilirubin 0.7 mg/dL (0.15-1.2); Total Protein 5.7 g/dL (6.6-8.7)
--- NOTE | 2020-12-20 06:30 | PC.NURSE ---
Shift Note Frequent safety and comfort rounds continue. Orders and/or nursing care completed as indicated. Patient monitored for response to intervention and treatment(s). Education provided includes pain management. Patient and/or solar sales representative and assessor Reinforcement needed. Will continue to monitor.
[2020-12-20] MEDS: digoxin 250 mcg/ml INJ 2 mL 125 MCG IVP (07:46)
[2020-12-20 08:02] LABS: Glucose Point of Care 316 mg/dL (70-110)
[2020-12-20] MEDS: apixaban 5 mg Tablet PO (08:53)
[2020-12-20] MEDS: vancomycin 1,250 MG/250 ML PIGGYBACK 200 MG IV (08:53)
[2020-12-20] MEDS: nystatin powder 15 gm Btl 1 APPLIC TOPICAL ×2 (08:53→17:51)
[2020-12-20] MEDS: finasteride 5 mg Tablet PO (08:53)
--- NOTE | 2020-12-20 09:40 | XR_ITS ---
WS: [id number] Portable AP semiupright chest, 12/20/2020 Clinical Data: pneumonia Comparison: Portable chest, 12/19/2020 Findings: The nasogastric tube remains curled in the fundus of the stomach. The endotracheal tube and right internal jugular venous catheter remain the same. The extensive bilateral patchy pulmonary opa cities have not changed. The heart is normal. The aortic arch shows tortuosity. The subcutaneous emph ysema over the left neck extending in the left axilla has diminished slightly. XR/XR chest 1V portable [id number] Impression: 1. Extensive bilateral pulmonary opacities consistent with pneumonia unchanged. 2. Mild improvement in subcutaneous emphysema of the left neck and axilla. 3. No change in position of multiple tubes.
--- NOTE | 2020-12-20 10:42 | PC.CHAP ---
Pastoral Care Encounter/Spiritual Assessment Type of Contact [] Declined capacitor assembler visit [] Patient/Family/Request visit [] Outpatient visit [] Follow-up visit [] Physician referral [] Code/Alert [x] Routine visit [] Staff referral [] Actively dying [] Patient sleeping [] Family support [] [] Out of room [] Palliative care [] [x] Receiving care in room [] Pre-surgical visit [] Trauma [] Long length of stay [] ICU visit [x] Other:ventilator Relational/Emotional Strength [] Patient feels connected with others/family/visitors/staff [] Distress [] Loneliness/isolation [] Abandonment Spirituality of Patient [] Person of Pamela [] Attends Sikhism of their Pamela [] Believes in Prayer [] Reads Bible or Religion materials [] There are Spiritual issues to be addressed Casting Machine Set Up Operator Interventions [x] Prayer [] Active listening [] Non-anxious presence [] Spiritual/emotional support [] Crisis/trauma care [] Spiritual counseling [] Bereavement support [] Provided bereavement packet [] Provided Bible/devotional materials [] Provided toy/stuffed animal, coloring book to patient or family member [] Provided Communion [] Anointing/[place] [] Salvation [x] Completed spiritual assessment [] Other: Impact on Illness or Injury [] Angry [] Fearful [] Anxious [] Often cries [] Exhaustion [] Unable to work [] Unable to attend mandaen [] Unable to walk/stand [] Unable to read [] Unable to drive [] Unable to eat/drink [] Unable to sleep [] Unable to be with family [] Patient intubated [] Other: Summary Time spent with patient
[2020-12-20] MEDS: fluconazole premix 200 MG/100 ML PREMIX 100 MG IV (10:48)
[2020-12-20] MEDS: cefepime 1,000 MG in sodium chloride 0.9% (plus) 100 ML 200 MG IV ×2 (10:48→22:49)
[2020-12-20] MEDS: famotidine 20 mg/2 mL INJ IVP ×2 (10:48→22:49)
[2020-12-20] MEDS: propofol 1,000 MG/100 ML INJ 13.61 MG IV (11:10)
[2020-12-20 11:20] LABS: Glucose Point of Care 392 mg/dL (70-110)
[2020-12-20 11:33] LABS: Arterial Blood Gas Hematocrit 38.4 % (42-52); Base Excess ABG -10.3 mmol/L (-2.0-2.0); Blood Gas Allen Test Pos; Blood Gas Sample Site Radial, left; Blood Gas Sample Type Arterial; Carboxyhemoglobin 0.8 %THgb (0.4-20.1); HGB O2 Sat 91.6 % (95-100); Ionized Calcium Level - ABG 1.2 mmol/L (1.1-1.4); Methemoglobin 0.8 % (0.4-1.5); Oxygen Device VENT; Oxygen Saturation ABG 93.1; PO2 ABG 77.4 mmHg (80.0-100.0); Potassium Level - ABG 6.3 mmol/L (3.5-5.0); Total Hemoglobin 12.5 g/dL (14-18)
[2020-12-20 11:34] LABS: Alveolar-Arterial Oxygen Gradi 71.6 mmHg (5-10)
--- NOTE | 2020-12-20 11:46 | PC.NUTR ---
Tube feeding follow up: TF providing approx. 432 kcal (20% of estimated needs) X 3 days, with additional 359 kcal from propofol. Nurse held H2O flushes today d/t low Na, will update order to reflect. Increase in TF appears inappropriate at this time given afib and overall status per nursing, however when medically appropriate, would recommend increase to better meet estimated nutritional needs. Recommend increase by 10 ml/hr q 8 hours to goal rate of 45 ml/hr, to provide 1296 kcal, 65 g protein, and 869 ml H2O, with flushes per MD discretion. If propofol discontinued, would increase goal to 60 ml/hr. If renal fx/labs not improved, change to Nepro may be appropriate. See full RD assessment for further details.
--- NOTE | 2020-12-20 12:33 | P.PN_ITS ---
Subjective Subjective: Interval history: This morning heart rate in 180s A. fib RVR amnio drip titrated as per advertising production manager Cardiac consult is being considered Patient is spiking fever Requiring vasopressors Proning on hold Paralyzed Bis read 12-20 Patient does become hypoxic on mechanical ventilator Antimicrobial coverage broadened with antifungal and antibiotics yesterday Vitals/I&O/Wt Last Vital Signs Temp 99.7 F H 12/20/20 11:00 Pulse 71 12/20/20 12:00 Resp 29 H 12/20/20 12:02 BP 87/56 12/20/20 12:00 Pulse Ox 90 12/20/20 12:02 12/19/20 12/20/20 12/20/20 22:59 06:59 14:59 Intake Total 513.006 / 1446.897 775.819 / 2222.716 389.307 / 389.307 Output Total 550 / 1150 650 / 1800 250 / 250 Balance -36.994 / 296.897 125.819 / 422.716 139.307 / 139.307 Weight last 48 hrs Weight 89.811 kg Weight 89.613 kg Physical Exam Narrative: EXAM NARRATIVE: Patient is intubated and sedated Paralyzed Clinically looks euvolemic Pinpoint pupil Bilateral assisted breath sounds Nondistended abdomen Lower extremity no edema or rash Neuro exam limited due to sedation Has Obrien catheter & right IJ Urinary Catheter Management^: Obrien: Cath Placed During This Visit: yes Reason for Continuing Indwelling Catheter: Accurate Measurement of Urinary Output in Critically Ill Patients Urinary Catheter Date of Insertion: 12/11/20 Urinary Catheter Time of Insertion: 06:05 Data : 12/20/20 04:30 12/20/20 04:30 Micro: Microbiology 12/19/20 05:36 Blood Culture - Preliminary Blood NEGATIVE TO DATE 12/19/20 05:30 Blood Culture - Preliminary Blood NEGATIVE TO DATE 12/18/20 15:30 MRSA Culture - Final Nose 12/16/20 13:19 Gram Stain - Final Sputum - Expectorated Sputum Sputum Culture - Preliminary Yeast species A&P Assessment and plan (1) ARDS (adult respiratory distress syndrome): Status: Acute (2) COVID-19: Status: Acute (3) Acute kidney injury superimposed on CKD: Status: Acute (4) A-fib: Status: Acute Qualifiers: Atrial fibrillation type: unspecified chronic Qualified Code(s): I48.20 - Chronic atrial fibrillation, unspecified (5) Hiatal hernia: Status: Acute (6) At risk for aspiration: Status: Acute (7) Septic shock: Status: Acute Additional A&P Information Ventilator dependent respiratory failure Patient sedated paralyzed and intubated Status post remdesivir, continue Decadron Management as per advertising production manager Septic shock Worsening leukocytosis Still requiring vasopressors, antimicrobial coverage broadened to antibiotics and antifungal A. fib with acute RVR Patient has persistent A. fib despite use of amiodarone(AV didier blocking agent metoprolol was held secondary to hypotension on day of admission, he has history of A. fib) Still requiring vasopressors Magnesium potassium within normal range No acute ischemic event on EKG Dr. Anand considering cardiac consult today Acute on chronic kidney disease Likely cardiorenal Positive balance for last 48 hours Was in negative balance uptill 12/18 Creatinine worsened today 2.1 Hyperglycemia due to type 2 diabetes Will need readjustment, persistent hyperglycemia Might need IV insulin Urine culture E. coli Sputum culture showing yeast Blood culture bacillus Tube feeding Guarded prognosis, Spoke with daughter Attestations Medical Necessity Statement*: Continue medical management for above-mentioned reasons Time Spent in Patient Care: less than 15 minutes Coding Level of Care Code Acute Chef French for [facility] Fwd Diagnoses ARDS (adult respiratory distress syndrome) J80 COVID-19 U07.1 Acute kidney injury superimposed on CKD N17.9; N18.9 A-fib I48.20 Atrial fibrillation type: unspecified chronic Hiatal hernia K44.9 At risk for aspiration Z91.89 Septic shock A41.9; R65.21
[2020-12-20 13:46] LABS: ABG PCO2 74.5 mmHg (35-45); ABG PH Result 7.06 (7.35-7.45)
--- NOTE | 2020-12-20 14:12 | PM.PN ---
Subjective Subjective: Interval history: - Patient seen multiple times at bedside today morning -Sedated and paralyzed requiring 100% FiO2 on mechanical ventilator saturating 90% -Persistent A. fib RVR-on amiodarone drip and received digoxin 125 MCG 1 dose-cardiology consulted - Labs and imaging reviewed Medications: Reviewed: Yes Vitals/I&O/Wt Last Vital Signs Temp 99.7 F H 12/20/20 11:00 Pulse 68 12/20/20 13:28 Resp 32 H 12/20/20 13:49 BP 87/56 12/20/20 12:00 Pulse Ox 90 12/20/20 13:49 12/19/20 12/20/20 12/20/20 22:59 06:59 14:59 Intake Total 513.006 / 1446.897 775.819 / 2222.716 955.476 / 955.476 Output Total 550 / 1150 650 / 1800 250 / 250 Balance -36.994 / 296.897 125.819 / 422.716 705.476 / 705.476 Weight last 48 hrs Weight 198 lb Weight 197 lb 9 oz Physical Exam Narrative: EXAM NARRATIVE: General: lying in bed, sedated and intubated. HEENT:NCAT, PERRLA, EOMI Neck: Supple Lungs: Bilateral diffuse crackles Heart: s1/s2, RRR Abd: soft, NT, ND, BS + Normoactive Extremities: No edema PARTS DATA WRITER: sedated and limited PARTS DATA WRITER exam possible. SKIN: no rash LDA: # CVC: Right IJ 12/16/2020 Urinary Catheter Management^: Obrien: Cath Placed During This Visit: yes Reason for Continuing Indwelling Catheter: Accurate Measurement of Urinary Output in Critically Ill Patients Urinary Catheter Date of Insertion: 12/11/20 Urinary Catheter Time of Insertion: 06:05 Data : 12/20/20 04:30 12/20/20 04:30 Other Labs: Laboratory Results WBC 13.2 10^3/uL (4.0-10.0) H 12/20/20 04:30 RBC 4.33 10^6/uL (4.1-5.3) 12/20/20 04:30 Hgb 11.8 g/dL (11.7-16.6) 12/20/20 04:30 Hct 37.9 % (42.0-52.0) L 12/20/20 04:30 MCV 87.5 fL (80-94) 12/20/20 04:30 MCH 27.3 pg (28.0-34.0) L 12/20/20 04:30 MCHC 31.1 g/dL (30.0-36.0) 12/20/20 04:30 RDW 14.7 % (12.1-15.1) 12/20/20 04:30 Plt Count 202 10^3/cmm (130-400) 12/20/20 04:30 MPV 10.5 fL (7.4-10.4) H 12/20/20 04:30 Neut % (Auto) 87.0 % 12/20/20 04:30 Lymph % (Auto) 4.6 % 12/20/20 04:30 [place] % (Auto) 7.4 % 12/20/20 04:30 Eos % (Auto) 0.3 % 12/20/20 04:30 Baso % (Auto) 0.2 % 12/20/20 04:30 Neut # (Auto) 11.46 10^3/uL (1.8-7.7) H 12/20/20 04:30 Lymph # (Auto) 0.6 10^3/uL (0.8-4.8) L 12/20/20 04:30 [place] # (Auto) 1.0 10^3/uL (0.2-0.9) H 12/20/20 04:30 Eos # (Auto) 0.0 10^3/uL (0.0-0.8) 12/20/20 04:30 Baso # (Auto) 0.0 10^3/uL (0.0-0.1) 12/20/20 04:30 Nucleated RBC % (auto) 0 % 12/20/20 04:30 Nucleated RBCs # 0.0 /100WBC 12/20/20 04:30 ESR 47 mm/hr (0-10) H 12/16/20 12:02 PT 14.20 SECONDS (12.1-14.9) 12/10/20 19:50 INR 1.07 (0.8-1.2) 12/10/20 19:50 APTT 30.0 SECONDS (23.9-36.7) 12/10/20 19:50 D-Dimer 14.95 ug/mIFEU (0-0.59) H 12/16/20 12:02 Specimen Type Arterial 12/20/20 11:21 Sample Site Radial, left 12/20/20 11:21 ABG pH 7.06 (7.35-7.45) L* 12/20/20 11:21 ABG pCO2 74.5 mmHg (35-45) H* 12/20/20 11:21 ABG pO2 77.4 mmHg (80.0-100.0) L 12/20/20 11:21 ABG HCO3 21.0 mmol/L (22-26) L 12/20/20 11:21 ABG O2 Saturation 93.1 12/20/20 11:21 ABG Base Excess -10.3 mmol/L (-2.0-2.0) L 12/20/20 11:21 Lg Test Pos 12/20/20 11:21 A-a O2 Gradient 71.6 mmHg (5-10) H 12/20/20 11:21 Hematocrit 38.4 % (42-52) L 12/20/20 11:21 Hgb O2 Saturation 91.6 % (95-100) L 12/20/20 11:21 Carboxyhemoglobin 0.8 %THgb (0.4-20.1) 12/20/20 11:21 Methemoglobin 0.8 % (0.4-1.5) 12/20/20 11:21 Total Hemoglobin 12.5 g/dL (14-18) L 12/20/20 11:21 Sodium 128.0 mmol/L (131-143) L 12/20/20 11:21 Potassium 6.3 mmol/L (3.5-5.0) H 12/20/20 11:21 Glucose 369.0 mg/dL (70-115) H 12/20/20 11:21 Ionized Calcium 1.2 mmol/L (1.1-1.4) 12/20/20 11:21 Respiration Rate 28.0 % 12/19/20 09:51 O2 Delivery Device Vent 12/20/20 11:21 O2 Liters/Min 5.0 % 12/10/20 19:39 Vent Mode Pcv 12/19/20 09:51 FiO2 100.0 % 12/20/20 11:21 Tidal Volume 0.50 12/16/20 21:24 PEEP 12.0 cmH20 12/20/20 11:21 Oceanographic Meteorologist ID Buttr 12/20/20 11:21 Sodium 133 mmol/L (136-145) L 12/20/20 04:30 Potassium 4.7 mmol/L (3.5-5.1) 12/20/20 04:30 Chloride 97 mmol/L (98-107) L 12/20/20 04:30 Carbon Dioxide 22 mmol/L (22-29) 12/20/20 04:30 Anion Gap 18.7 (5-19) 12/20/20 04:30 BUN 60 mg/dL (8-23) H 12/20/20 04:30 Creatinine 2.1 mg/dL (0.7-1.2) H 12/20/20 04:30 GFR Calculation Not Reportable 12/20/20 04:30 Glucose 220 mg/dL (65-115) H 12/20/20 04:30 POC Glucose 392 mg/dL (70-110) H 12/20/20 11:15 Calculated Osmolality 300 mOsm/kg (285-295) H 12/20/20 04:30 Lactic Acid 2.4 mmol/L (0.5-2.2) H 12/18/20 12:55 Lactic Acid (Sepsis) 2.5 mmol/L (0.5-2.2) H 12/18/20 18:28 Calcium 7.9 mg/dL (8.5-10.5) L 12/20/20 04:30 Phosphorus 5.3 mg/dL (2.5-4.5) H 12/20/20 04:30 Magnesium 3.0 mg/dL (1.7-2.3) H 12/20/20 04:30 Ferritin 726 ng/mL (30-400) H 12/16/20 12:02 Total Bilirubin 0.7 mg/dL (0.15-1.2) 12/20/20 04:30 AST 85 U/L (0-40) H 12/20/20 04:30 ALT 50 U/L (0-41) H 12/20/20 04:30 Alkaline Phosphatase 114 IU/L (40-130) 12/20/20 04:30 Lactate Dehydrogenase 294 U/L (135-225) H 12/12/20 07:25 Creatine Kinase 76 U/L (39-308) 12/11/20 00:15 Troponin T Baseline 13 ng/L (0-15) 12/10/20 19:50 Troponin T 120 Minute 11.26 ng/L (0-15) 12/10/20 23:22 Delta Troponin T -1.74 ABS# (0-10) L 12/10/20 23:22 Troponin T Hi Sens 6Hr 11.19 ng/L (0-15) 12/11/20 00:15 Troponin T Hi Sens 6Hr Delta -1.81 ng/L (0-12) L 12/11/20 00:15 C-Reactive Protein 166.4 mg/L (0.0-4.9) H 12/16/20 12:02 NT-Pro-B Natriuret Pep 35410 pg/mL (0-125) H 12/10/20 19:50 Total Protein 5.7 g/dL (6.6-8.7) L 12/20/20 04:30 Albumin 2.6 g/dL (3.5-5.2) L 12/20/20 04:30 Globulin 3.1 g/dL (1.3-4.6) 12/20/20 04:30 Procalcitonin 0.19 ng/mL (0-0.5) 12/14/20 06:38 Urine Color Yellow (Yellow) 12/11/20 06:05 Urine Appearance Clear (CLEAR) 12/11/20 06:05 Urine pH 5 (5-7) 12/11/20 06:05 Ur Specific Gary 1.015 (1.005-1.030) 12/11/20 06:05 Urine Protein Neg (Negative) 12/11/20 06:05 Urine Glucose (UA) 4+ (Normal) H 12/11/20 06:05 Urine Ketones Negative (Negative) 12/11/20 06:05 Urine Blood Neg (Negative) 12/11/20 06:05 Urine Nitrate Negative (Negative) 12/11/20 06:05 Urine Bilirubin Neg (Negative) 12/11/20 06:05 Urine Urobilinogen Norm mg/dL (Negative) 12/11/20 06:05 Ur Leukocyte Esterase Negative (Negative) 12/11/20 06:05 Ur Random Sodium 26 mmol/L 12/11/20 06:05 Ur Random Potassium 31 mmol/L 12/11/20 06:05 Ur Random Chloride 13 mmol/L 12/11/20 06:05 Impressions Renal Ultrasound 12/11/20 05:19 IMPRESSION: 1. Prominent right renal pelvis. No hydronephrosis.. Right renal cortical atrophy. 2. Normal left kidney. No hydronephrosis. 3. Obrien catheter. Chest X-Ray 12/20/20 09:40 Impression: 1. Extensive bilateral pulmonary opacities consistent with pneumonia unchanged. 2. Mild improvement in subcutaneous emphysema of the left neck and axilla. 3. No change in position of multiple tubes. Micro: Microbiology 12/19/20 05:36 Blood Culture - Preliminary Blood NEGATIVE TO DATE 12/19/20 05:30 Blood Culture - Preliminary Blood NEGATIVE TO DATE 12/18/20 15:30 MRSA Culture - Final Nose 12/16/20 13:19 Gram Stain - Final Sputum - Expectorated Sputum Sputum Culture - Preliminary Yeast species A&P Assessment and plan (1) ARDS (adult respiratory distress syndrome): Status: Acute (2) Aspiration pneumonia: Status: Acute Qualifiers: Aspiration pneumonia type: unspecified Laterality: bilateral Lung location: lower lobe of lung Qualified Code(s): J69.0 - Pneumonitis due to inhalation of food and vomit (3) Respiratory failure with hypoxia: Status: Acute Qualifiers: Chronicity: acute Qualified Code(s): J96.01 - Acute respiratory failure with hypoxia (4) A-fib: Status: Acute Qualifiers: Atrial fibrillation type: unspecified chronic Qualified Code(s): I48.20 - Chronic atrial fibrillation, unspecified (5) Acute kidney injury superimposed on CKD: Status: Acute (6) COVID-19: Status: Acute (7) Controlled diabetes mellitus with hyperglycemia, with long-term current use of insulin: Status: Chronic Qualifiers: Diabetes mellitus type: type 2 Qualified Code(s): E11.65 - Type 2 diabetes mellitus with hyperglycemia; Z79.4 - watermaster (current) use of insulin (8) Hiatal hernia: Status: Acute (9) At risk for aspiration: Status: Acute (10) Decompensated heart failure: Status: Acute (11) Chronic kidney disease (CKD): Status: Acute Qualifiers: Chronic kidney disease stage: stage 3 (moderate) Chronic kidney disease stage 3 subtype: stage 3a (GFR 45-59) Qualified Code(s): N18.31 - Chronic kidney disease, stage 3a (12) History of deep venous thrombosis (DVT) of distal vein of left lower extremity: Status: Chronic Overall: 76-year-old male admitted for hypoxic respiratory failure secondary to ARDS due to COVID-19 pneumonia with superimposing aspiration pneumonia-currently intubated 12/16/2020 requiring 100% mechanical ventilator and in persistent A. fib RVR on amiodarone drip #Sedation and paralytic - fentanyl, propofol and Nimbex -Held Seroquel 50 mg p.o. daily #Acute hypoxic respiratory failure secondary to ARDS due to COVID-19 pneumonia and superimposing aspiration pneumonia #Previous CT chest in June 2020 and October 2019 showed bilateral peripheral reticulation with some degree of traction bronchiectasis -possible underlying interstitial lung disease but it was never diagnosed before -Currently intubated on PCV 13/24/12/95% -ABG 7.0 6/74/77/20 1/93% on 100% FiO2 MV 8 -respiratory acidosis recommend increase respiratory rate to 28 with target MV 9-10 -Plan was to paralyze and prone-but patient went into A. fib RVR just prior to planned proning session -Chest x-ray 12/20/2020:Extensive bilateral pulmonary opacities consistent with pneumonia unchanged.Mild improvement in subcutaneous emphysema of the left neck and axilla. -Completed remdesivir 5-day protocol -Currently on dexamethasone 6 mg IVP daily -Improving multifocal bilateral airspace opacities on today's chest x-ray -DuoNeb nebulization every 6 hours scheduled; & Pulmicort 0.5 twice daily -Monitor inflammatory markers every 48 hours -vancomycin, cefepime, roommate is likely so I do think -Continue awakening trial followed by breathing trials -MRSA nares negative #Chronic A. fib-currently in persistent RVR # Decompensated heart failure with preserved ejection fraction: - 2D echo: Normal left ventricular cavity size. Normal left ventricular systolic function. Left ventricular ejection fraction is estimated at 65 %. Grade I diastolic dysfunction (abnormal relaxation filling pattern), normal to mildly elevated filling pressures. Normal right ventricular size and systolic function. No significant valvular abnormality based on the study. Normal pulmonary artery pressure. -Off Levophed overnight -Currently on amiodarone drip and received Cardizem 30 mg pushes intermittently -Cardiology consulted -On Eliquis for anticoagulation # SHUKRI on CKD stage III: Likely secondary to cardiorenal syndrome secondary to decompensated heart failure: Improved -+1.2 L over last 24 hours and overall -10 L -No more Lasix - renal functions slightly worsening and electrolytes within normal limits -On Flomax and finasteride #Deranged LFTs-likely secondary to COVID-19 pneumonia-improving -Monitor LFTs -If worsening hold atorvastatin #Diabetes mellitus-uncontrolled sugars -Lantus 30 units and scale coverage -Monitor sugars and adjust accordingly #Persistent fever -T-max 101.2 #Recent urine culture 10/17/2020 and 11/29/2020-E. coli - Sensitive to Zosyn #Sputum 12/16/2020-positive for yeast-identification pending #Blood culture 12/10/2020 1/3 bottles positive for bacillus likely contamination #Large hiatal hernia-at risk for aspiration -Cultures pending -DC Zosyn and broadened antibiotic coverage to vancomycin and imipenem and fluconazole -Monitor vitals, WBC, fevers #Diet-tube feeding #DVT prophylaxis-Eliquis #GI prophylaxis-H2 swapna #Code-full code #Prognosis-guarded #Daughter: Updated Hospitalist, RN, RT covering the patient updated Attestations Medical Necessity Statement*: Acute hypoxic respiratory failure secondary to ARDS due to COVID-19 pneumonia in patient with underlying interstitial lung disease and aspiration pneumonia with large hiatal hernia, uncontrolled blood sugars, still requiring high FiO2 on mechanical ventilation and in persistent A. fib RVR in patient with underlying decompensated heart failure and chronic A. fib Time Spent in Patient Care: Greater than 35 minutes (>than 50% of time spent in counselling and/or direct pt care on unit). 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 for Chg Fwd Patient Type Established History Comprehensive Exam Comprehensive Medical Decision Making High Complexity Diagnoses ARDS (adult respiratory distress syndrome) J80 Aspiration pneumonia J69.0 Aspiration pneumonia type: unspecified Laterality: bilateral Lung location: lower lobe of lung Respiratory failure with hypoxia J96.01 Chronicity: acute A-fib I48.20 Atrial fibrillation type: unspecified chronic Acute kidney injury superimposed on CKD N17.9; N18.9 COVID-19 U07.1 Controlled diabetes mellitus with hyperglycemia, with long-term current use of insulin E11.65; Z79.4 Diabetes mellitus type: type 2 Hiatal hernia K44.9 At risk for aspiration Z91.89 Decompensated heart failure I50.9 Chronic kidney disease (CKD) N18.31 Chronic kidney disease stage: stage 3 (moderate) Chronic kidney disease stage 3 subtype: stage 3a (GFR 45-59) History of deep venous thrombosis (DVT) of distal vein of left lower extremity Z86.718 Time Spent (min) 60
[2020-12-20] MEDS: ipratropium-albuterol 3 mL Neb INHALATION ×2 (15:16→20:27)
[2020-12-20 17:39] LABS: Arterial Blood Gas Hematocrit 46.3 % (42-52); Blood Gas Allen Test Pos; Blood Gas Sample Site Radial, left; Blood Gas Sample Type Arterial; Carboxyhemoglobin 0.8 %THgb (0.4-20.1); HGB O2 Sat 74.1 % (95-100); Ionized Calcium Level - ABG 1.2 mmol/L (1.1-1.4); Total Hemoglobin 15.1 g/dL (14-18)
[2020-12-20] MEDS: propofol 1,000 MG/100 ML INJ 16.33 MG IV ×2 (17:56→23:44)
[2020-12-20 18:07] LABS: Glucose Point of Care 320 mg/dL (70-110)
[2020-12-20 18:48] LABS: ABG PH Result 7.25 (7.35-7.45); HCO3 ABG 18.5 mmol/L (22-26); PO2 ABG 73.4 mmHg (80.0-100.0)
[2020-12-20 18:49] LABS: Base Excess ABG -8.4 mmol/L (-2.0-2.0); Oxygen Device vent; Potassium Level - ABG 6.4 mmol/L (3.5-5.0)
--- NOTE | 2020-12-20 19:13 | PC.NURSE ---
0700 Reported vital signs, including heart rate and rhythm. Orders for IVP Cardizem. [address] Caceres to increase Amio drip to 1 mg/min 0735 Dr. Caceres at bedside. Reviewed labs, vitals, and medications. Orders for Digoxin, and to DC free water flushes. [address] Caceres. Orders to decrease Amio drip to 0.5 mg/min. 1010 Dr. Caceres and Dr. Interiano at bedside. Reviewed medications, IV drips, and vital signs. BIS [employer] 0700 37 3/4 0800 30 3/4 0900 29 3/4 1000 34 4/4 1100 32 4/4 1300 44 4/4 1500 34 4/4
[2020-12-20] MEDS: budesonide 0.5 mg/2 mL Neb INHALATION (20:27)
[2020-12-20 20:28] LABS: Glucose Point of Care 250 mg/dL (70-110)
--- NOTE | 2020-12-20 20:31 | P.CONIM_ITS ---
Providers/Reason For Consult Consulting Physician/Specialty*: Cardiology Reason for Consult*: Atrial fibrillation with a rapid ventricular response Attending Physician: Bebe Interiano MD Primary Care Provider: BARRINGTON Khan History of Present Illness History of Present Illness Percy Coronado is a 70 year old male past medical history significant for hypertension diabetes mellitus chronic kidney disease stage III gastric reflux benign prostate hypertrophy was admitted with respiratory failure Covid pneumonia complicated with respiratory pneumonia. Patient was started on vent. During this admission he developed atrial fibrillation with rapid ventricle response difficult to control. We have been asked to assist in his care since he has failed digoxin and amiodarone therapy while Cardizem resulted in drop in his blood pressure.. Please note that I have not personally examined the patient history physical examination as per our medicine and pulmonary critical care colleagues note. Echocardiogram was also performed which showed normal ejection fraction without significant valvular abnormality, no pericardial effusion was noted. Review of Systems General: Reports: 10 or more systems reviewed and unremarkable except in HPI and below Narrative: Unable to assess Const: Reports: fatigue; Denies: fever(s), chills or body aches Eyes: Denies: change in vision, blurry vision or photophobia ENMT: Reports: hoarseness; Denies: throat pain, enlarged tonsils, odynophagia or nasal congestion Card: Denies: chest pain, palpitations, irregular heart rhythm, edema, swelling of feet/ankles, lightheadedness, pre-syncope, dyspnea on exertion or or thopnea Resp: Denies: dyspnea, productive cough, non-productive cough, wheezing, stridor, pain on inspiration, change in phlegm color, hemoptysis or chest congestion GI: Denies: abdominal pain, nausea, vomiting, hematemesis, coffee ground emesis, dysphagia, heartburn, diarrhea, constipation, GI cramping, change in stool character, hematochezia or melena : Denies: flank pain, dysuria, urinary frequency, urinary urgency, urinary hesitancy or hematuria Musc: Denies: neck pain, back pain, extremity pain, joint swelling, joint warmth or deformity Neuro: Denies: headache(s), numbness in extremities, weakness in extremities, sensory changes, difficulty walking, frequent falls, dizziness, vertigo, behavioral changes, Slurred speech present or seizure-like activity Psych: Denies: anxiety, depression, suicidal ideation or homicidal ideation Endo: Denies: polyuria, polydipsia, tired all the time, cold intolerance or hot flashes Ruben/Lymph: Denies: easy bruising or easy bleeding Meds/Allergies Home Medications and Allergies Home Medications Medication Instructions Recorded Confirmed Last Taken Type blood sugar diagnostic #10 each 06/24/19 12/12/20 Unknown History apixaban 5 mg tablet 5 mg PO Q12H #60 tab 09/11/20 12/12/20 11/29/20 Rx cholecalciferol (vitamin D3) 125 125 mcg PO DAILY #30 cap 09/11/20 12/12/20 11/29/20 Rx mcg (5,000 unit) capsule famotidine 20 mg tablet 20 mg PO BID #60 tab 09/11/20 12/12/20 11/29/20 Rx finasteride 5 mg tablet 5 mg PO DAILY #30 tab 09/11/20 12/12/20 11/28/20 Rx insulin degludec 100 unit/mL (3 75 unit SUBCUT DAILY #24 ml 09/11/20 12/12/20 11/29/20 Rx mL) subcutaneous pen liraglutide 0.6 mg/0.1 mL (18 mg/3 1.8 mg SUBCUT DAILY #9 ml 09/11/20 12/12/20 11/29/20 Rx mL) subcutaneous pen injector losartan 100 mg tablet 100 mg PO DAILY #30 tab 09/11/20 12/12/20 11/29/20 Rx sertraline 100 mg tablet 100 mg PO DAILY #30 tab 09/11/20 12/12/20 11/29/20 Rx pen needle, diabetic 33 gauge x #100 ea 11/20/20 12/12/20 Unknown Rx gabapentin 600 mg PO BEDTIME PRN 11/29/20 12/12/20 11/28/20 History hydroxyzine pamoate 25 mg PO BEDTIME PRN 11/29/20 12/12/20 11/28/20 History levocetirizine 5 mg PO DAILY PRN 11/29/20 12/12/20 Unknown History rosuvastatin 40 mg PO BEDTIME 11/29/20 12/12/20 11/28/20 History tamsulosin 0.4 mg PO BEDTIME 11/29/20 12/12/20 11/28/20 History acetaminophen [Tylenol Extra 500 - 1,000 mg PO PRN 12/12/20 12/12/20 Unknown History Strength] ondansetron 4 mg PO Q6H PRN 12/12/20 12/12/20 Unknown History Allergies Allergy/AdvReac Type Severity Reaction Status Date / Time procaine [From Novocain] Allergy parenteral Verified 12/12/20 08:12 Current Medications Current Medications Generic Name Dose Route Start Last Admin Trade Name Rodneyq PRN Reason Stop Dose Admin Acetaminophen 650 mg 12/19/20 01:07 12/20/20 04:31 Acetaminophen 325 Mg Tablet PO 650 mg Q6H PRN Administration MILD PAIN Albuterol/Ipratropium 3 ml 12/11/20 21:00 12/20/20 20:27 Ipratropium-Albuterol 3 Ml Neb INHALATION 3 ml Q6H.RESPIRATORY BETTYE Administration Atorvastatin Calcium 80 mg 12/11/20 21:00 12/19/20 20:00 Atorvastatin 40 Mg Tablet PO 80 mg BEDTIME BETTYE Administration Budesonide 0.5 mg 12/11/20 08:00 12/20/20 20:27 Budesonide 0.5 Mg/2 Ml Neb INHALATION 0.5 mg BID.RESPIRATORY BETTYE Administration Dexamethasone 6 mg 12/11/20 05:30 12/20/20 04:31 Dexamethasone 4 Mg/Ml Inj IVP 6 mg Q24H BETTYE Administration Famotidine 20 mg 12/17/20 11:45 12/20/20 10:48 Famotidine 20 Mg/2 Ml Inj IVP 20 mg Q12H BETTYE Administration Finasteride 5 mg 12/11/20 09:00 12/20/20 08:53 Finasteride 5 Mg Tablet PO 5 mg DAILY BETTYE Administration Gabapentin 600 mg 12/11/20 21:00 12/16/20 21:10 Gabapentin 300 Mg Capsule PO 600 mg BEDTIME BETTYE Administration Propofol 1,000 mg in 100 mls @ 0 mls/hr 12/16/20 12:30 12/20/20 17:56 Diprivan IV 30 mcg/kg/min .Q0M BETTYE 16.33 mls/hr Administration Protocol Per Protocol Fentanyl 1,000 mcg/ Sodium 100 mls @ 0 mls/hr 12/16/20 12:30 12/20/20 13:05 Chloride IV 50 mcg/hr .Q0M BETTYE 5 mls/hr Titration Protocol Per Protocol Norepinephrine Bitartrate 4 mg 254 mls @ 0 mls/hr 12/16/20 13:45 12/20/20 12:08 / Dextrose IV 2 mcg/min .Q0M BETTYE 7.62 mls/hr Titration Protocol Per Protocol Vancomycin/PEG/NADA/Lysine/Water 1,250 mg in 250 mls @ 200 mls/hr 12/19/20 09:00 12/20/20 10:10 Vancocin IV Infused Q24H BETTYE Infusion Fluconazole 200 mg in 100 mls @ 100 mls/hr 12/19/20 11:00 12/20/20 11:45 Diflucan Premix IV Infused Q24H BETTYE Infusion Cefepime HCl 1,000 mg/ Sodium 100 mls @ 200 mls/hr 12/19/20 11:00 12/20/20 11:15 Chloride IV Infused Q12H BETTYE Infusion Protocol Cisatracurium Besylate 100 mg/ 100 mls @ 0 mls/hr 12/19/20 10:45 12/20/20 13:05 Sodium Chloride IV 0 mcg/kg/min .Q0M BETTYE 0 mls/hr Titration Protocol Per Protocol Amiodarone HCl 900 mg/ 518 mls @ 0 mls/hr 12/19/20 17:15 12/20/20 13:05 Dextrose/ IV Miscellaneous IV 0.5 mg/min Supplies .Q0M BETTYE 17.27 mls/hr Administration Protocol Per Protocol Insulin Aspart 0 unit 12/18/20 08:00 12/20/20 17:50 Insulin Aspart 100 Unit/1 Ml SUBCUT 12 unit WM&BEDTIME BETTYE Administration Protocol Metoprolol Tartrate 12.5 mg 12/13/20 21:00 12/16/20 08:55 Metoprolol Tartrate 25 Mg Tablet PO 12.5 mg BID@0900,2100 BETTYE Administration Nystatin 1 applic 12/17/20 09:00 12/20/20 17:51 Nystatin Powder 15 Gm Btl TOPICAL 1 applic BID BETTYE Administration Tamsulosin HCl 0.4 mg 12/11/20 21:00 12/19/20 20:00 Tamsulosin 0.4 Mg Capsule PO 0.4 mg BEDTIME BETTYE Administration PFSH Acute PFSH: Medical History Anxiety and depression BPH loc w urin obs/LUTS Chronic kidney disease (CKD) stage 3 Chronic painful diabetic neuropathy Controlled diabetes mellitus with hyperglycemia, with long-term current use of insulin Distended bladder Enlarged prostate Environmental and seasonal allergies Gastric reflux History of deep venous thrombosis (DVT) of distal vein of left lower extremity HTN (hypertension) Incomplete bladder emptying Mixed dyslipidemia Osteoarthritis of knee, unspecified Right Overflow incontinence Urinary retention Vitamin D deficiency, unspecified Surgical History History of partial surgical removal of colon (~11/2014) For colon cancer Hx of colonoscopy 2014 Family History Mother Cancer Lung Father Nicotine addiction Other Hypertension Social History Second hand smoke exposure: No Smoking risk assessment/counseling performed?: No Alcohol intake: former Desire information about alcohol rehabilitation?: No Counseling given: No Desire information about substance/drug rehabilitation?: No Counseling given: No Adopted: No Caregiver/support person: No Lives independently: Yes Household members: none Housing: House Marital status: / service: No Current occupational status: retired History of recent travel: No Current gender identity: Male Dietary Habits: Current diet type/program: diabetic Caffeine: Yes Safety: Seatbelt use: always Helmet use: No Drive intoxicated or ride with intoxicated coach tour driver?: never Vitals/I&O/Wt Last Vital Signs Temp 100.4 F H 12/20/20 15:00 Pulse 77 12/20/20 19:00 Resp 35 H 12/20/20 17:02 BP 116/61 12/20/20 19:00 Pulse Ox 93 12/20/20 19:00 12/20/20 12/20/20 12/20/20 06:59 14:59 22:59 Intake Total 775.819 / 2222.716 955.476 / 955.476 97.580 / 1053.056 Output Total 650 / 1800 250 / 250 100 / 350 Balance 125.819 / 422.716 705.476 / 705.476 -2.420 / 703.056 Weight last 48 hrs Weight 198 lb Weight 197 lb 9 oz Physical Exam Urinary Catheter Management^: Obrien: Cath Placed During This Visit: yes Reason for Continuing Indwelling Catheter: Accurate Measurement of Urinary Output in Critically Ill Patients Urinary Catheter Date of Insertion: 12/11/20 Urinary Catheter Time of Insertion: 06:05 Data Micro: Micro: Microbiology 12/19/20 05:36 Blood Culture - Pr eliminary Blood NEGATIVE TO VINCE E 12/19/20 05:30 Blood Culture - Pr eliminary Blood NEGATIVE TO VINCE E 12/18/20 15:30 MRSA Culture - Fin al Nose A&P Assessment and plan (1) Atrial fibrillation with rapid ventricular response: Most likely driven by pulmonary insult, hyperadrenergic response and intravascular contracted volume due to shock. We recommend continuing amiodarone which is the mainstay for the patient. We also recommend hydration as much as allowed by pulmonary depending upon his physical exam and lung status. We recommend holding diuretics use. Once he will improve pulmonary morris may convert into sinus rhythm or rate will be controlled then. In case of persistent hypotension and rapid ventricular response we can also consider electrical cardioversion if compromising the mean arterial pressure for vital organ supply. Status: Acute (2) Septic shock: As per medicine and pulmonary critical care Status: Acute (3) ARDS (adult respiratory distress syndrome): As per pulmonary Status: Acute (4) Acute kidney injury superimposed on CKD: Acute on chronic due to prerenal and sepsis Status: Acute (5) COVID-19: As per pulmonary and medicine Status: Acute Consult Attestations Medical Necessity Statement: As per pulmonary medicine Coding Level of Care Code New Pt Acute [employer] for [facility] Fwd Patient Type New History Detailed Exam Detailed Medical Decision Making Moderate Complexity Diagnoses Atrial fibrillation with rapid ventricular response I48.91 Septic shock A41.9; R65.21 ARDS (adult respiratory distress syndrome) J80 Acute kidney injury superimposed on CKD N17.9; N18.9 COVID-19 U07.1
--- NOTE | 2020-12-20 20:35 | PC.NURSE ---
Dr. Caceres at bedside, notified him of no urine output since 429 this morning, new orders received and followed through, will continue to monitor.
[2020-12-20] MEDS: tamsulosin 0.4 mg Capsule PO (20:52)
[2020-12-20] MEDS: apixaban 5 mg Tablet 2.5 MG PO (20:52)
[2020-12-20] MEDS: atorvastatin 40 mg Tablet 80 MG PO (20:52)
[2020-12-20] MEDS: insulin glargine 100 units/1 mL 30 UNIT SUBCUT (20:53)
[2020-12-20] MEDS: sodium chloride 0.9% 500 ML 999 ML IV (20:53)
--- NOTE | 2020-12-20 21:00 | PC.NURSE ---
Dr. Ortega called to check on patient 's status and Amiodarone gtt. Notified him of no urine output and orders this nurse received from Dr. Caceres. New orders received and followed through, will continue to monitor.
[2020-12-20] MEDS: sodium chloride 0.9% 1,000 ML 100 ML IV (21:15)
[2020-12-21] VITALS (82 sets, daily range): BP systolic 70–105; BP diastolic 38–65; PULSE 54–158; RESP 24–33; TEMP 35.7–39.5; O2SAT 83–97
[2020-12-21] MEDS: ipratropium-albuterol 3 mL Neb INHALATION ×4 (02:05→20:05)
[2020-12-21] MEDS: acetaminophen 325 mg Tablet 650 MG PO ×2 (02:13→17:59)
--- NOTE | 2020-12-21 02:32 | PC.NURSE ---
0215 Ice packs added to armpits, groin and back of neck to help bring down temperature. Will continue to monitor.
--- NOTE | 2020-12-21 03:12 | PC.NURSE ---
Notified Dr. Cardozo of no urine output this shift. Awaiting response, will continue to monitor.
[2020-12-21] MEDS: sodium chloride 0.9% 500 ML 999 ML IV (03:22)
--- NOTE | 2020-12-21 03:29 | PC.NURSE ---
New orders received from Dr. Cardozo and followed through, will continue to monitor.
[2020-12-21] MEDS: sodium chloride 0.9% 1,000 ML 100 ML IV (03:58)
--- NOTE | 2020-12-21 03:58 | PC.NURSE ---
500 mL bolus NS ordered by Dr. Cardozo, bolus from current bag hanging will start new bag when complete.
--- NOTE | 2020-12-21 04:02 | PC.NURSE ---
Notified Dr. Cardozo of HR consistently 150-160 awaiting orders, will continue to monitor.
--- NOTE | 2020-12-21 04:06 | PC.NURSE ---
New orders received and followed through, will continue to monitor.
[2020-12-21] MEDS: dexamethasone 4 mg/mL INJ 6 MG IVP (04:56)
[2020-12-21 05:53] LABS: Basophils % 0.1 %; Hematocrit 36.1 % (42.0-52.0); Hemoglobin 11.2 g/dL (11.7-16.6); Lymphocytes # 0.7 10^3/uL (0.8-4.8); Lymphocytes % 3.5 %; Mean Corpuscular Hemoglobin 27.5 pg (28.0-34.0); Mean Corpuscular Volume 88.5 fL (80-94); Mean Platelet Volume 10.5 fL (7.4-10.4); Monocytes # 1.2 10^3/uL (0.2-0.9); Monocytes % 5.9 %; Neutrophils # 18.49 10^3/uL (1.8-7.7); Nucleated Red Blood Cells % 0 %; Platelet Count 182 10^3/cmm (130-400); Red Blood Count 4.08 10^6/uL (4.1-5.3); Red Cell Distribution Width 14.8 % (12.1-15.1); White Blood Count 20.6 10^3/uL (4.0-10.0)
[2020-12-21 06:30] LABS: Alanine Aminotransferase 56 U/L (0-41); Albumin Level 2.3 g/dL (3.5-5.2); Alkaline Phosphatase 105 IU/L (40-130); Anion Gap 22.2 (5-19); Aspartate Amino Transferase 116 U/L (0-40); Calcium 7.2 mg/dL (8.5-10.5); Carbon Dioxide 16 mmol/L (22-29); Chloride 98 mmol/L (98-107); Globulin 2.8 g/dL (1.3-4.6); Glucose 178 mg/dL (65-115); Osmolality Calculated 304 mOsm/kg (285-295); Potassium 6.2 mmol/L (3.5-5.1); Sodium 130 mmol/L (136-145); Total Bilirubin 0.5 mg/dL (0.15-1.2); Total Protein 5.1 g/dL (6.6-8.7)
[2020-12-21 06:41] LABS: Blood Urea Nitrogen 96 mg/dL (8-23)
[2020-12-21] MEDS: propofol 1,000 MG/100 ML INJ 16.33 MG IV ×3 (07:28→21:43)
[2020-12-21 07:29] LABS: Glucose Point of Care 216 mg/dL (70-110)
[2020-12-21] MEDS: apixaban 5 mg Tablet 2.5 MG PO ×2 (08:11→21:47)
[2020-12-21] MEDS: insulin regular-human 10 UNIT in SYRINGE 1 EACH IVP (08:11)
[2020-12-21] MEDS: sodium bicarbonate 150 MEQ in sodium chloride 0.45% 1,000 ML 100 MEQ IV ×2 (08:11→21:39)
[2020-12-21] MEDS: nystatin powder 15 gm Btl 1 APPLIC TOPICAL ×2 (08:12→17:57)
[2020-12-21] MEDS: budesonide 0.5 mg/2 mL Neb INHALATION ×2 (08:46→20:05)
--- NOTE | 2020-12-21 09:20 | PC.SOCIAL ---
IMM NOT GIVEN IMM update not given due to pt intubated at this time.
[2020-12-21 09:34] LABS: Vancomycin Trough 21.8 ug/mL (10-15)
[2020-12-21 10:05] LABS: ABG PCO2 38.9 mmHg (35-45); ABG PH Result 7.22 (7.35-7.45); Base Excess ABG -11.4 mmol/L (-2.0-2.0); Blood Gas Allen Test Pos; Blood Gas Sample Type Arterial; Carboxyhemoglobin 0.7 %THgb (0.4-20.1); HCO3 ABG 15.7 mmol/L (22-26); HGB O2 Sat 90.2 % (95-100); Ionized Calcium Level - ABG 1.1 mmol/L (1.1-1.4); Methemoglobin 1.1 % (0.4-1.5); Oxygen Saturation ABG 91.8; PO2 ABG 61.8 mmHg (80.0-100.0); Potassium Level - ABG 6.3 mmol/L (3.5-5.0); Total Hemoglobin 11.4 g/dL (14-18)
[2020-12-21 10:07] LABS: Alveolar-Arterial Oxygen Gradi 78.6 mmHg (5-10); Blood Gas Operator Identificat MONRO; Blood Gas Sample Site Radial, left; Oxygen Device VENT
[2020-12-21] MEDS: fluconazole premix 200 MG/100 ML PREMIX 100 MG IV (10:29)
[2020-12-21] MEDS: cefepime 1,000 MG in sodium chloride 0.9% (plus) 100 ML 200 MG IV (10:29)
[2020-12-21] MEDS: famotidine 20 mg/2 mL INJ IVP (11:07)
[2020-12-21 11:28] LABS: Glucose Point of Care 225 mg/dL (70-110)
[2020-12-21 17:22] LABS: Glucose Point of Care 294 mg/dL (70-110)
--- NOTE | 2020-12-21 17:36 | PM.PN ---
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 Cardiology evaluated him Kidney function getting worse, getting oliguric potassium 6.2 Getting acidotic, Daughter discussed goals of care with director of ancillary services, he is DNR/DNI now POC glucose 204 Vitals/I&O/Wt Last Vital Signs Temp 99.6 F 12/21/20 07:00 Pulse 68 12/21/20 16:31 Resp 33 H 12/21/20 16:34 BP 97/53 12/21/20 10:15 Pulse Ox 91 12/21/20 16:34 12/21/20 12/21/20 12/21/20 06:59 14:59 22:59 Intake Total 1675.931 / 3267.320 633.917 / 633.917 Output Total 0 / 350 Balance 1675.931 / 2917.320 633.917 / 633.917 Weight last 48 hrs Weight 88.507 kg Weight 89.811 kg Physical Exam Narrative: EXAM NARRATIVE: Intubated and sedated Requiring vasopressors Currently on pressure control settings Oliguric Concentrated urine color Soft abdomen Lower extremity no edema Neuro exam limited Pinpoint pupils Right IJ in place Telemetry showing sinus rhythm heart rate in 60s Assisted diminished bilateral breath sounds Urinary Catheter Management^: Obrien: Cath Placed During This Visit: yes Reason for Continuing Indwelling Catheter: Accurate Measurement of Urinary Output in Critically Ill Patients Urinary Catheter Date of Insertion: 12/11/20 Urinary Catheter Time of Insertion: 06:05 Data : 12/21/20 04:30 12/21/20 04:30 A&P Assessment and plan (1) Atrial fibrillation with rapid ventricular response: Status: Acute (2) Septic shock: Status: Acute (3) Hiatal hernia: Status: Acute (4) ARDS (adult respiratory distress syndrome): Status: Acute (5) Acute kidney injury superimposed on CKD: Status: Acute (6) COVID-19: Status: Acute (7) Respiratory failure with hypoxia: Status: Acute Qualifiers: Chronicity: acute Qualified Code(s): J96.01 - Acute respiratory failure with hypoxia (8) ARDS (adult respiratory distress syndrome): Status: Acute (9) Hyperglycemia: Status: Acute Additional A&P Information Ventilator dependent respiratory failure Severe ARDS related to COVID-19 pneumonia Not a candidate of proning, paralytics discontinued Intubated and sedated Requiring vasopressors for septic shock Currently on pressure control ventilator setting Septic shock Urine culture with E. coli, sputum culture with yeast Blood cultures likely contaminant Currently requiring vasopressors On cefepime, fluconazole and Decadron, vancomycin Urine culture growing E. coli sensitive to ceftriaxone Might benefit from cephalosporins only, if MRSA PCR negative can discontinue vancomycin Acute on chronic kidney disease Worsening kidney function with hyperkalemia Acidotic with high anion gap Patient getting oliguric, bicarb drip initiated Likely developed ATN Poorly controlled type 2 diabetes, Patient is still hyperglycemic Will need readjustment of tube feeding Insulin regimen A. fib He has history of chronic A. 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
--- NOTE | 2020-12-21 17:41 | PC.RESP ---
RT Shift Note Frequent safety and respiratory rounds continue. Orders completed as indicated. Patient monitored pre and post treatments throughout shift. Patient [Did.] tolerate treatments appropriately. Condition [DidNotChange]. Patient and/or desk representative educated on respiratory treatment and medications. Patient and/or desk representative [unable to comprehend]. Will continue to monitor patient progress.
--- NOTE | 2020-12-21 19:24 | PC.NURSE ---
Shift Note Frequent safety and comfort rounds continue. Orders and/or nursing care completed as indicated. Patient monitored for response to intervention and treatment(s).
--- NOTE | 2020-12-21 20:24 | PM.PN ---
Subjective Subjective: Interval history: -Patient seen at bedside multiple times today -Labs showed patient has significantly worsening renal failure -Yesterday patient was started on NS -Started on bicarb drip Medications: Reviewed: Yes Vitals/I&O/Wt Last Vital Signs Temp 100.2 F H 12/21/20 18:25 Pulse 68 12/21/20 20:13 Resp 33 H 12/21/20 20:10 BP 78/44 12/21/20 19:00 Pulse Ox 89 L 12/21/20 20:10 12/21/20 12/21/20 12/21/20 06:59 14:59 22:59 Intake Total 1675.931 / 3267.320 633.917 / 633.917 254 / 887.917 Output Total 0 / 350 50 / 50 Balance 1675.931 / 2917.320 583.917 / 583.917 254 / 837.917 Weight last 48 hrs Weight 195 lb 2 oz Weight 198 lb Physical Exam Narrative: EXAM NARRATIVE: General: lying in bed, sedated and intubated. HEENT:NCAT, PERRLA, EOMI Neck: Supple Lungs: Bilateral diffuse crackles Heart: s1/s2, RRR Abd: soft, NT, ND, BS + Normoactive Extremities: No edema FILL TECHNICIAN: sedated and limited FILL TECHNICIAN exam possible. SKIN: no rash LDA: # CVC: Right IJ 12/16/2020 Urinary Catheter Management^: Obrien: Cath Placed During This Visit: yes Reason for Continuing Indwelling Catheter: Accurate Measurement of Urinary Output in Critically Ill Patients Urinary Catheter Date of Insertion: 12/11/20 Urinary Catheter Time of Insertion: 06:05 Data : 12/21/20 04:30 12/21/20 04:30 Other Labs: Laboratory Results WBC 20.6 10^3/uL (4.0-10.0) H 12/21/20 04:30 RBC 4.08 10^6/uL (4.1-5.3) L 12/21/20 04:30 Hgb 11.2 g/dL (11.7-16.6) L 12/21/20 04:30 Hct 36.1 % (42.0-52.0) L 12/21/20 04:30 MCV 88.5 fL (80-94) 12/21/20 04:30 MCH 27.5 pg (28.0-34.0) L 12/21/20 04:30 MCHC 31.0 g/dL (30.0-36.0) 12/21/20 04:30 RDW 14.8 % (12.1-15.1) 12/21/20 04:30 Plt Count 182 10^3/cmm (130-400) 12/21/20 04:30 MPV 10.5 fL (7.4-10.4) H 12/21/20 04:30 Neut % (Auto) 90.0 % 12/21/20 04:30 Lymph % (Auto) 3.5 % 12/21/20 04:30 [place] % (Auto) 5.9 % 12/21/20 04:30 Eos % (Auto) 0.0 % 12/21/20 04:30 Baso % (Auto) 0.1 % 12/21/20 04:30 Neut # (Auto) 18.49 10^3/uL (1.8-7.7) H 12/21/20 04:30 Lymph # (Auto) 0.7 10^3/uL (0.8-4.8) L 12/21/20 04:30 [place] # (Auto) 1.2 10^3/uL (0.2-0.9) H 12/21/20 04:30 Eos # (Auto) 0.0 10^3/uL (0.0-0.8) 12/21/20 04:30 Baso # (Auto) 0.0 10^3/uL (0.0-0.1) 12/21/20 04:30 Nucleated RBC % (auto) 0 % 12/21/20 04:30 Nucleated RBCs # 0.0 /100WBC 12/21/20 04:30 ESR 47 mm/hr (0-10) H 12/16/20 12:02 PT 14.20 SECONDS (12.1-14.9) 12/10/20 19:50 INR 1.07 (0.8-1.2) 12/10/20 19:50 APTT 30.0 SECONDS (23.9-36.7) 12/10/20 19:50 D-Dimer 14.95 ug/mIFEU (0-0.59) H 12/16/20 12:02 Specimen Type Arterial 12/21/20 09:53 Sample Site Radial, left 12/21/20 09:53 ABG pH 7.22 (7.35-7.45) L 12/21/20 09:53 ABG pCO2 38.9 mmHg (35-45) 12/21/20 09:53 ABG pO2 61.8 mmHg (80.0-100.0) L 12/21/20 09:53 ABG HCO3 15.7 mmol/L (22-26) L 12/21/20 09:53 ABG O2 Saturation 91.8 12/21/20 09:53 ABG Base Excess -11.4 mmol/L (-2.0-2.0) L 12/21/20 09:53 Lg Test Pos 12/21/20 09:53 A-a O2 Gradient 78.6 mmHg (5-10) H 12/21/20 09:53 Hematocrit 35.0 % (42-52) L 12/21/20 09:53 Hgb O2 Saturation 90.2 % (95-100) L 12/21/20 09:53 Carboxyhemoglobin 0.7 %THgb (0.4-20.1) 12/21/20 09:53 Methemoglobin 1.1 % (0.4-1.5) 12/21/20 09:53 Total Hemoglobin 11.4 g/dL (14-18) L 12/21/20 09:53 Sodium 128.0 mmol/L (131-143) L 12/21/20 09:53 Potassium 6.3 mmol/L (3.5-5.0) H 12/21/20 09:53 Glucose 226.0 mg/dL (70-115) H 12/21/20 09:53 Ionized Calcium 1.1 mmol/L (1.1-1.4) 12/21/20 09:53 Respiration Rate 28.0 % 12/20/20 17:28 O2 Delivery Device Vent 12/21/20 09:53 O2 Liters/Min 5.0 % 12/10/20 19:39 Vent Mode Pcv 12/19/20 09:51 FiO2 100.0 % 12/21/20 09:53 Tidal Volume 0.50 12/16/20 21:24 PEEP 12.0 cmH20 12/21/20 09:53 Director Of Optimization ID Monro 12/21/20 09:53 Sodium 130 mmol/L (136-145) L 12/21/20 04:30 Potassium 6.2 mmol/L (3.5-5.1) H 12/21/20 04:30 Chloride 98 mmol/L (98-107) 12/21/20 04:30 Carbon Dioxide 16 mmol/L (22-29) L 12/21/20 04:30 Anion Gap 22.2 (5-19) H 12/21/20 04:30 BUN 96 mg/dL (8-23) H* D 12/21/20 04:30 Creatinine 4.1 mg/dL (0.7-1.2) H 12/21/20 04:30 GFR Calculation Not Reportable 12/21/20 04:30 Glucose 178 mg/dL (65-115) H 12/21/20 04:30 POC Glucose 294 mg/dL (70-110) H 12/21/20 17:16 Calculated Osmolality 304 mOsm/kg (285-295) H 12/21/20 04:30 Lactic Acid 2.4 mmol/L (0.5-2.2) H 12/18/20 12:55 Lactic Acid (Sepsis) 2.5 mmol/L (0.5-2.2) H 12/18/20 18:28 Calcium 7.2 mg/dL (8.5-10.5) L 12/21/20 04:30 Phosphorus 5.3 mg/dL (2.5-4.5) H 12/20/20 04:30 Magnesium 3.0 mg/dL (1.7-2.3) H 12/20/20 04:30 Ferritin 726 ng/mL (30-400) H 12/16/20 12:02 Total Bilirubin 0.5 mg/dL (0.15-1.2) 12/21/20 04:30 AST 116 U/L (0-40) H 12/21/20 04:30 ALT 56 U/L (0-41) H 12/21/20 04:30 Alkaline Phosphatase 105 IU/L (40-130) 12/21/20 04:30 Lactate Dehydrogenase 294 U/L (135-225) H 12/12/20 07:25 Creatine Kinase 76 U/L (39-308) 12/11/20 00:15 Troponin T Baseline 13 ng/L (0-15) 12/10/20 19:50 Troponin T 120 Minute 11.26 ng/L (0-15) 12/10/20 23:22 Delta Troponin T -1.74 ABS# (0-10) L 12/10/20 23:22 Troponin T Hi Sens 6Hr 11.19 ng/L (0-15) 12/11/20 00:15 Troponin T Hi Sens 6Hr Delta -1.81 ng/L (0-12) L 12/11/20 00:15 C-Reactive Protein 166.4 mg/L (0.0-4.9) H 12/16/20 12:02 NT-Pro-B Natriuret Pep 17847 pg/mL (0-125) H 12/10/20 19:50 Total Protein 5.1 g/dL (6.6-8.7) L 12/21/20 04:30 Albumin 2.3 g/dL (3.5-5.2) L 12/21/20 04:30 Globulin 2.8 g/dL (1.3-4.6) 12/21/20 04:30 Procalcitonin 0.19 ng/mL (0-0.5) 12/14/20 06:38 Urine Color Yellow (Yellow) 12/11/20 06:05 Urine Appearance Clear (CLEAR) 12/11/20 06:05 Urine pH 5 (5-7) 12/11/20 06:05 Ur Specific [place] 1.015 (1.005-1.030) 12/11/20 06:05 Urine Protein Neg (Negative) 12/11/20 06:05 Urine Glucose (UA) 4+ (Normal) H 12/11/20 06:05 Urine Ketones Negative (Negative) 12/11/20 06:05 Urine Blood Neg (Negative) 12/11/20 06:05 Urine Nitrate Negative (Negative) 12/11/20 06:05 Urine Bilirubin Neg (Negative) 12/11/20 06:05 Urine Urobilinogen Norm mg/dL (Negative) 12/11/20 06:05 Ur Leukocyte Esterase Negative (Negative) 12/11/20 06:05 Ur Random Sodium 26 mmol/L 12/11/20 06:05 Ur Random Potassium 31 mmol/L 12/11/20 06:05 Ur Random Chloride 13 mmol/L 12/11/20 06:05 Vancomycin Trough 21.8 ug/mL (10-15) H 12/21/20 08:24 Impressions Renal Ultrasound 12/11/20 05:19 IMPRESSION: 1. Prominent right renal pelvis. No hydronephrosis.. Right renal cortical atrophy. 2. Normal left kidney. No hydronephrosis. 3. Obrien catheter. Chest X-Ray 12/20/20 09:40 Impression: 1. Extensive bilateral pulmonary opacities consistent with pneumonia unchanged. 2. Mild improvement in subcutaneous emphysema of the left neck and axilla. 3. No change in position of multiple tubes. A&P Assessment and plan (1) ARDS (adult respiratory distress syndrome): Status: Acute (2) Aspiration pneumonia: Status: Acute Qualifiers: Aspiration pneumonia type: unspecified Laterality: bilateral Lung location: lower lobe of lung Qualified Code(s): J69.0 - Pneumonitis due to inhalation of food and vomit (3) Respiratory failure with hypoxia: Status: Acute Qualifiers: Chronicity: acute Qualified Code(s): J96.01 - Acute respiratory failure with hypoxia (4) A-fib: Status: Acute Qualifiers: Atrial fibrillation type: unspecified chronic Qualified Code(s): I48.20 - Chronic atrial fibrillation, unspecified (5) Acute kidney injury superimposed on CKD: Status: Acute (6) COVID-19: Status: Acute (7) Controlled diabetes mellitus with hyperglycemia, with long-term current use of insulin: Status: Chronic Qualifiers: Diabetes mellitus type: type 2 Qualified Code(s): E11.65 - Type 2 diabetes mellitus with hyperglycemia; Z79.4 - senior living (current) use of insulin (8) Hiatal hernia: Status: Acute (9) At risk for aspiration: Status: Acute (10) Decompensated heart failure: Status: Acute (11) Chronic kidney disease (CKD): Status: Acute Qualifiers: Chronic kidney disease stage: stage 3 (moderate) Chronic kidney disease stage 3 subtype: stage 3a (GFR 45-59) Qualified Code(s): N18.31 - Chronic kidney disease, stage 3a (12) History of deep venous thrombosis (DVT) of distal vein of left lower extremity: Status: Chronic (13) Yeast species isolated but not further identified: Status: Acute (14) Counseling regarding advance directives and goals of care: Status: Acute Overall: 70-year-old male admitted for hypoxic respiratory failure secondary to ARDS due to COVID-19 pneumonia with superimposing aspiration pneumonia-currently intubated 12/16/2020 requiring 100% mechanical ventilator and in persistent A. fib RVR on amiodarone drip and currently with worsening renal functions #Sedation and paralytic - fentanyl, propofol and Nimbex -Held Seroquel 50 mg p.o. daily #Acute hypoxic respiratory failure secondary to ARDS due to COVID-19 pneumonia and superimposing aspiration pneumonia #Previous CT chest in June 2020 and October 2019 showed bilateral peripheral reticulation with some degree of traction bronchiectasis -possible underlying interstitial lung disease but it was never diagnosed before -Currently intubated on and still requiring 100% FiO2 -ABG suggestive of metabolic acidosis -Plan was to paralyze and prone-but patient went into A. fib RVR just prior to planned proning session and currently in renal failure -Chest x-ray 12/20/2020:Extensive bilateral pulmonary opacities consistent with pneumonia unchanged.Mild improvement in subcutaneous emphysema of the left neck and axilla. -Completed remdesivir 5-day protocol -Currently on dexamethasone 6 mg IVP daily -DuoNeb nebulization every 6 hours scheduled; & Pulmicort 0.5 twice daily -Monitor inflammatory markers every 48 hours -vancomycin, cefepime,-renally adjusteed doses -Continue awakening trial followed by breathing trials -MRSA nares negative #Chronic A. fib-currently in persistent RVR # Decompensated heart failure with preserved ejection fraction: - 2D echo: Normal left ventricular cavity size. Normal left ventricular systolic function. Left ventricular ejection fraction is estimated at 65 %. Grade I diastolic dysfunction (abnormal relaxation filling pattern), normal to mildly elevated filling pressures. Normal right ventricular size and systolic function. No significant valvular abnormality based on the study. Normal pulmonary artery pressure. -Off Levophed overnight -Currently on amiodarone drip -Cardiology on the case -On Eliquis for anticoagulation # SHUKRI on CKD stage III: Likely secondary to cardiorenal syndrome secondary to decompensated heart failure: Worsening -reduced urine output -renal functions worsening and hyperkalemia -Started on bicarb drip and given insulin 10 units and calcium chloride -Discussed with daughter about poor prognosis and possible diagnosis-she reported patient does not want to be dependent on machines and given his overall prognosis will not go for hemodialysis -On Flomax and finasteride #Deranged LFTs-likely secondary to COVID-19 pneumonia-worsening -Monitor LFTs -If worsening hold atorvastatin #Diabetes mellitus-uncontrolled sugars -Lantus 30 units and scale coverage -Monitor sugars and adjust accordingly #Persistent fever -T-max 101.2 #Recent urine culture 10/17/2020 and 11/29/2020-E. coli - Sensitive to Zosyn #Sputum 12/16/2020-positive for yeast-identification pending #Blood culture 12/10/202005/14 bottles positive for bacillus likely contamination #Large hiatal hernia-at risk for aspiration -Cultures negative to date -DC Zosyn and broadened antibiotic coverage to vancomycin and imipenem and fluconazole -Monitor vitals, WBC, fevers #Diet-tube feeding #DVT prophylaxis-Eliquis #GI prophylaxis-H2 swapna #Code-full code #Prognosis-very poor #Daughter: Updated -Discussed goals of care with patient's daughter. Patient has 2 daughters and 1 son-all her estranged from their father, but the elder daughter reported as far as she knows that patient never wanted to be in vegetative state and dependent on machines-so patient will not get dialysis if needed given his overall poor prognosis with severe ARDS-dependent on ventilator, and also made DNR. We discussed updates with her brother and said he agrees with the plan. Other sister does not want to be involved in any of these decisions regarding their father Patient with acute respiratory distress syndrome and hypoxic failure secondary to COVID-19 pneumonia requiring 100% oxygen on ventilator with superimposing aspiration pneumonia, A. fib with RVR in patient with history of chronic A. fib and decompensated heart failure with preserved ejection fraction, worsening SHUKRI on CKD stage III, sputum positive for yeast-has overall poor prognosis given acuity of multisystem involvement. We will continue present care but DNR and no dialysis and no aggressive escalation of care. Hospitalist, RN, RT covering the patient updated Attestations Medical Necessity Statement*: Acute hypoxic respiratory failure secondary to ARDS due to COVID-19 pneumonia in patient with underlying interstitial lung disease and aspiration pneumonia with large hiatal hernia, uncontrolled blood sugars, still requiring high FiO2 on mechanical ventilation and in persistent A. fib RVR in patient with underlying decompensated heart failure and chronic A. fib; worsening SHUKRI in patient with CKD stage III-extremely poor prognosis; will continue present management with no escalation of care as per patient's daughter. Time Spent in Patient Care: Greater than 35 minutes (>than 50% of time spent in counselling and/or direct pt care on unit). Critical Care Time: The high probability of a clinically significant, sudden or life threatening deterioration of the patient's [neurological, pulmonary, cardiac, renal, endocrine, infectious, hepatic] system(s) required my full and direct attention, intervention and personal management. The critical care time is as shown. This time is in addition to time spent performing any reported procedures but includes the following: [x] Data and vital sign review and interpretation [x] Patient assessment, examination and intervention [x] Documentation [x] Medication orders and management Critical Care Time (min): 60 Coding Level of Care Code Acute Airframe And Powerplant Technician for g Fwd Diagnoses ARDS (adult respiratory distress syndrome) J80 Aspiration pneumonia J69.0 Aspiration pneumonia type: unspecified Laterality: bilateral Lung location: lower lobe of lung Respiratory failure with hypoxia J96.01 Chronicity: acute A-fib I48.20 Atrial fibrillation type: unspecified chronic Acute kidney injury superimposed on CKD N17.9; N18.9 COVID-19 U07.1 Controlled diabetes mellitus with hyperglycemia, with long-term current use of insulin E11.65; Z79.4 Diabetes mellitus type: type 2 Hiatal hernia K44.9 At risk for aspiration Z91.89 Decompensated heart failure I50.9 Chronic kidney disease (CKD) N18.31 Chronic kidney disease stage: stage 3 (moderate) Chronic kidney disease stage 3 subtype: stage 3a (GFR 45-59) History of deep venous thrombosis (DVT) of distal vein of left lower extremity Z86.718 Yeast species isolated but not further identified B37.9 Counseling regarding advance directives and goals of care Z71.89
[2020-12-21 21:34] LABS: Glucose Point of Care 240 mg/dL (70-110)
[2020-12-21 21:36] LABS: Calcium 6.6 mg/dL (8.5-10.5); Carbon Dioxide 17 mmol/L (22-29); Chloride 90 mmol/L (98-107); Glucose 230 mg/dL (65-115); Osmolality Calculated 301 mOsm/kg (285-295); Sodium 126 mmol/L (136-145)
[2020-12-21 21:40] LABS: Blood Urea Nitrogen 102 mg/dL (8-23)
[2020-12-21] MEDS: tamsulosin 0.4 mg Capsule PO (21:42)
[2020-12-21] MEDS: insulin glargine 100 units/1 mL 30 UNIT SUBCUT (21:42)
--- NOTE | 2020-12-21 22:51 | PC.NURSE ---
Charla Unique, the patient's daughter was notified that the patient is not doing good and that she could come in to see him. The levophed is at 30 mcg. and all vitals are decreasing. The brass pickler, Dr. Caceres was notified as well. He gave authorization to increase the levophed to 30 mcg.
[2020-12-22] VITALS: BP 51/28; PULSE 45
--- NOTE | 2020-12-22 00:39 | PC.NURSE ---
: Pt family at the bedside at the time of . Instrument Lens Inspector and Physician notified. MTS notified and the pt is not a candidate for donation and has been released to [facility] at this time.
--- NOTE | 2020-12-22 01:21 | PC.NURSE ---
The time of , reported to the house nurse, who then contacted the attending doctor, was at 0000 on 12/22/20. The patient's daughter, Gely was at the bedside when this occurred and gave permission for the body to be released to [facility] in [place]. She was given a bag with all of the patient's belongings and escorted back out to the ER parking lot. [facility] was contacted as well, and they reported that the patient was not a candidate. The person that I spoke with was Shari.
--- NOTE | 2021-01-01 20:50 | PM.DDS ---
Discharge Providers DDS Date of Admission: 12/10/20 21:48 Date Summary Completed: 01/01/21 Attending Provider at Admission: Kellie Cardozo MD Time of : 00:00 Attending Provider at Discharge: Bebe Interiano MD Primary Care Provider: [facility] Diagnoses (1) ARDS (adult respiratory distress syndrome): (2) Aspiration pneumonia: Qualifiers: Aspiration pneumonia type: unspecified Laterality: bilateral Lung location: lower lobe of lung Qualified Code(s): J69.0 - Pneumonitis due to inhalation of food and vomit (3) Respiratory failure with hypoxia: Qualifiers: Chronicity: acute Qualified Code(s): J96.01 - Acute respiratory failure with hypoxia (4) A-fib: Qualifiers: Atrial fibrillation type: unspecified chronic Qualified Code(s): I48.20 - Chronic atrial fibrillation, unspecified (5) Acute kidney injury superimposed on CKD: (6) COVID-19: (7) Controlled diabetes mellitus with hyperglycemia, with long-term current use of insulin: Qualifiers: Diabetes mellitus type: type 2 Qualified Code(s): E11.65 - Type 2 diabetes mellitus with hyperglycemia; Z79.4 - alf (current) use of insulin (8) Hiatal hernia: (9) At risk for aspiration: (10) Decompensated heart failure: (11) Chronic kidney disease (CKD): Qualifiers: Chronic kidney disease stage: stage 3 (moderate) Chronic kidney disease stage 3 subtype: stage 3a (GFR 45-59) Qualified Code(s): N18.31 - Chronic kidney disease, stage 3a (12) History of deep venous thrombosis (DVT) of distal vein of left lower extremity: (13) Yeast species isolated but not further identified: (14) Counseling regarding advance directives and goals of care: Reason for Visit Reason for Visit: COVID +; SOB Summary Date and Time of Date of : 12/22/20 Time of : 00:00 Summary Summary: Patient was admitted for management of hypoxic patient was admitted for management of hypoxic respiratory failure related to COVID-19 he was diagnosed on 12/07, received monoclonal antibody, unfortunately breathing status worsened and he required intubation His clinical course was notable for prolonged intubation, family was contacted, daughter decided to pursue comfort measures when decline in his clinical status was notified to her by the research epidemiologist. He developed severe ARDS, COVID-19 pneumonia, aspiration pneumonia, chronic A. fib, acute on chronic kidney injury, persistent fever, urine culture positive for E. coli, Additional Data Confirmation of as documented by pronouncing clinician: no pulse Family: at bedside Attending/PCP notified?: I am attending Was code activated?: No Autopsy requested?: No Advance directives?: No Hospice patient?: No Discharge Plan Discharge Patient Disposition: Condition: Serious DS Attestations Time Spent in /Discharge Care*: less than 30 min Quality - AMI: AMI present?: No Quality - Stroke: CVA present?: No Symptom Onset Unknown: No Quality - VTE: VTE present?: No Deep Vein Thrombosis/Pulmonary Embolism Present on Admission: No Coding Level of Care Code Acute Cooler Service Supervisor for [facility] Fwd Diagnoses ARDS (adult respiratory distress syndrome) J80 Aspiration pneumonia J69.0 Aspiration pneumonia type: unspecified Laterality: bilateral Lung location: lower lobe of lung Respiratory failure with hypoxia J96.01 Chronicity: acute A-fib I48.20 Atrial fibrillation type: unspecified chronic Acute kidney injury superimposed on CKD N17.9; N18.9 COVID-19 U07.1 Controlled diabetes mellitus with hyperglycemia, with long-term current use of insulin E11.65; Z79.4 Diabetes mellitus type: type 2 Hiatal hernia K44.9 At risk for aspiration Z91.89 Decompensated heart failure I50.9 Chronic kidney disease (CKD) N18.31 Chronic kidney disease stage: stage 3 (moderate) Chronic kidney disease stage 3 subtype: stage 3a (GFR 45-59) History of deep venous thrombosis (DVT) of distal vein of left lower extremity Z86.718 Yeast species isolated but not further identified B37.9 Counseling regarding advance directives and goals of care Z71.89
== END 2020-12-22 00:01 | disposition expired | DRG 208 ==
LOC: ER 21:45 → MS 2A 12-11 02:04 → ICU 12-16 12:22
PROVIDERS: Internal Medicine; Internal Medicine Critical Care Medicine; Internal Medicine Pulmonary Disease; Admitting Provider Student in an Organized Health Care Education/Training Program; Emergency Provider Emergency Medicine; PCP Nurse Practitioner; Visit Provider Internal Medicine
DX: U07.1 COVID-19 (principal); J12.82 Pneumonia due to coronavirus disease 2019; J80 Acute respiratory distress syndrome; J69.0 Pneumonitis due to inhalation of food and vomit; I50.23 Acute on chronic systolic (congestive) heart failure; N17.9 Acute kidney failure, unspecified; I13.0 Hypertensive heart and chronic kidney disease with heart failure and stage 1 through stage 4 chronic kidney disease, or unspecified chronic kidney disease; Z99.11 Dependence on respirator [ventilator] status; I48.19 Other persistent atrial fibrillation; N40.1 Benign prostatic hyperplasia with lower urinary tract symptoms; N18.31 Chronic kidney disease, stage 3a; M17.11 Unilateral primary osteoarthritis, right knee; F10.11 Alcohol abuse, in remission; E78.2 Mixed hyperlipidemia; E87.5 Hyperkalemia; E11.65 Type 2 diabetes mellitus with hyperglycemia; E11.40 Type 2 diabetes mellitus with diabetic neuropathy, unspecified; H91.90 Unspecified hearing loss, unspecified ear; K44.9 Diaphragmatic hernia without obstruction or gangrene; B96.20 Unspecified Escherichia coli [E. coli] as the cause of diseases classified elsewhere; Z86.718 Personal history of other venous thrombosis and embolism; Z86.59 Personal history of other mental and behavioral disorders; Z79.4 Long term (current) use of insulin; Z98.890 Other specified postprocedural states; Z80.9 Family history of malignant neoplasm, unspecified; Z82.49 Family history of ischemic heart disease and other diseases of the circulatory system; Z81.1 Family history of alcohol abuse and dependence; Z99.81 Dependence on supplemental oxygen; Z79.01 Long term (current) use of anticoagulants
CPT/HCPCS: 36415; 36416; 36600; 51702; 71045; 76770; 80048; 80051; 80053; 80202; 81003; 82330; 82436; 82550; 82728; 82803; 82805; 82962; 83605; 83615; 83735; 83880; 84100; 84133; 84145; 84300; 84484; 85025; 85378; 85610; 85651; 85730; 86140; 87040; 87070; 87106; 87107; 87205; 87641; 93005; 93306; 94002; 94003; 94640; 94660; 94799; 96365; 96372; 96375; 99285; A4570; J0282; J0330; J0456; J0692; J0696; J1100; J1160; J1450; J1815 ×2; J1940; J2060; J2250; J2405; J2543; J2704; J3010; J3370; J3480; J3490; J7030; J7040; J7050; J7060; J7626; P9047